=== PATIENT | female | born 1950 | race Caucasian/White ===

== ENCOUNTER 2017-10-22 13:22 | Emergency (ER) | payer OTHER ==
[~2017-10-22] VITALS: Ht 172.7 cm; Wt 85.0 kg
[2017-10-22 13:25] VITALS: TEMP 36.8; Ht 172.7 cm; Wt 85.0 kg
[2017-10-22] MEDS ORDERED: VALS40TA2 PO (14:06)
[2017-10-22] MEDS ORDERED: SODIUM CHLORIDE 0.9% 1000ML 1,000 ML IV STA (14:09)
[2017-10-22] MEDS ORDERED: MoRPHine SULFATE 4 MG/ML 1 ML CARP\\VIAL IV STA (14:09)
[2017-10-22] MEDS ORDERED: ONDANSETRON INJ 2 MG/ML 2 ML VIAL IV STA (14:09)
[2017-10-22] MEDS ORDERED: NAPR1TAB48 PO (14:52)
[2017-10-22] MEDS ORDERED: ATEN-173 PO (14:52)
[2017-10-22] MEDS ORDERED: GLC/500 PO (14:52)
[2017-10-22 14:59] LABS: BASO % 0.2 %; BASO ABS # 0.02 K/uL (0-0.2); EOS % 1.2 %; HEMATOCRIT 34.8 % (37-47); HEMOGLOBIN 12.2 g/dL (12.0-16.0); IG# 0.02 K/uL (0.00-0.02); LYMPH % 18.1 %; LYMPH ABS # 1.53 K/uL (1.2-3.4); MEAN CELL VOLUME 85.1 fL (80-100); MEAN CORPUSCULAR HEMOGLOBIN 29.8 pg (25-34); MEAN CORPUSCULAR HGB CONC 35.1 g/dl (32-36); MEAN PLATELET VOLUME 10.2 fL (7.4-10.4); MONO % 6.4 %; MONO ABS # 0.54 K/uL (0.11-0.59); NEUT % 73.9 %; NEUT ABS # 6.25 K/uL (1.4-6.5); PLATELET COUNT 250 K/uL (130-400); RED CELL DISTRIBUTION WIDTH CV 12.4 % (11.5-14.5); RED CELL DISTRIBUTION WIDTH SD 38.4 fL (36.4-46.3); WHITE BLOOD COUNT 8.46 K/uL (4.8-10.8)
[2017-10-22 15:17] LABS: CALCIUM 9.2 mg/dl (8.5-10.1); CREATININE 0.96 mg/dl (0.60-1.20); POTASSIUM 4.4 mmol/L (3.5-5.1)
[2017-10-22] MEDS ORDERED: METOPROLOL TARTRATE 1 MG/ML VIAL IV STA (15:38)
[2017-10-22] MEDS ORDERED: METOPROLOL TARTRATE 1 MG/ML VIAL ONE (15:48)
--- NOTE | 2017-10-22 16:19 | DIAGNOSTIC IMAGING REPORT ---
CT LUMBAR SPINE WITHOUT CT DOSE: CLINICAL HISTORY: Lumbar spine pain status post trauma TECHNIQUE: Helical images were acquired in transverse plane. Reformatted sagittal and coronal images were reviewed. A dose lowering technique was utilized adhering to the principles of ALARA. CONTRAST: No contrast was administered COMPARISON STUDY: None. FINDINGS: L1-2 level: There is a circumferential disc bulge. There is mild to moderate spinal stenosis. There is no significant foraminal narrowing L2-3 level: There is a broad-based central disc protrusion. There is gas present within the disc. There is moderate spinal stenosis. There is no significant foraminal narrowing L3-4 level: There is a circumferential disc bulge. There is facet joint and ligamentous hypertrophy. There is moderate to severe spinal stenosis. There is mild left-sided foraminal narrowing L4-5 level: There is a circumferential disc bulge. There is severe spinal stenosis. There is mild right-sided foraminal narrowing. L5-S1 level: There is no significant disc bulge or focal herniation. There is right-sided foraminal narrowing. There is a fracture through the left sacral ala. IMPRESSION: 1. No lumbar spine fractures or subluxations identified 2. Fracture through the left sacral ala 3. Multilevel spondylitic changes with multilevel spinal stenosis which is moderate at the L2-3 level, moderate to severe at the L3-4 level, and severe at the L4-5 level Electronically signed by: Braxton Romero M.D. 10/22/2017 4:17 PM Dictated Date/Time: 10/22/2017 4:12 PM
--- NOTE | 2017-10-22 16:30 | DIAGNOSTIC IMAGING REPORT ---
CT PELVIS NO IV/ORAL CONT (CT) CT DOSE: 1438.69 mGy.cm CLINICAL HISTORY: Low back pain status post trauma TECHNIQUE: Helical images were acquired in the transverse plane. Sagittal and coronal reformatted images were reviewed. A dose lowering technique was utilized adhering to the principles of ALARA. COMPARISON STUDY: None. FINDINGS: There is no evidence of SI joint diastases. There are bilateral sacral alae fractures. No ischio pubic ring fractures are visualized. There are advanced arthritic changes present within each hip. No acute fractures are visualized. There are multilevel degenerative changes present within the spine. There is L4-5, and L5-S1 spinal stenosis. IMPRESSION: 1. Nondisplaced bilateral sacral fractures 2. Advanced arthritic changes within each hip. No hip fractures identified 3. Advanced degenerative changes within the lower lumbar spine with significant L4-5 and L5-S1 spinal stenosis Electronically signed by: Braxton Romero M.D. 10/22/2017 4:28 PM Dictated Date/Time: 10/22/2017 4:21 PM
[2017-10-22] MEDS ORDERED: DOCU-94 PO (16:59)
[2017-10-22] MEDS ORDERED: OXYC-737 PO (16:59)
--- NOTE | 2017-10-22 17:15 | EMERGENCY ROOM VISIT NOTE ---
History Report prepared by Dilip: Rosi Bedolla Under the Supervision of: Dr. Michelle Tony M.D. First contact with patient: 13:47 Chief Complaint: FALL Stated Complaint: FELL HIP PAIN R SIDE NUMBNESS History of Present Illness The patient is a 67 year old female who presents to the Emergency Room with complaints of an episode of a fall that occurred two days ago. The patient reports slipping in dog urine 2 days ago in her house. She claims that since then there is sharp pain around the tailbone and back region, and she reports numbness down to her knees. She reports she has difficulty standing, bearing weight, and lifting objects. The patient notes an earlier episode of falling that occurred toward the end of last week, but she notes the pain from that fall went away. She denies any chest pain and shortness of breath. The patient reports she takes Advil with no relief. The patient states she has atrial fibrillation and was on Coumadin, but was taken off of it after her knee replacement. Source of History: patient Onset: 2 days ago Position: pelvis Quality: sharp, other (fall) Timing: other (episode) Modifying Factors (Worsening): other (standing, bearing weight, lifting objects) Associated Symptoms: + numbness, No chest pain, No SOB Review of Systems See HPI for pertinent positives & negatives. A total of 10 systems reviewed and were otherwise negative. Past Medical & Surgical Medical Problems: (1) A-fib (2) Diabetes (3) Hypertension Surgical Problems: (1) Status post right knee replacement Family History No pertinent family history Social History Smoking Status: Never Smoker Marital Status: single Housing Status: lives with family Current/Historical Medications Scheduled Atenolol (Tenormin), Unknown Dose PO QAM Docusate Sodium (Colace), 1 CAP PO BID Metformin Hcl (Glucophage), 500 MG PO DAILY Naproxen (Naprosyn), Unknown Dose PO BID Valsartan (Diovan), Unknown Dose PO DAILY Scheduled PRN Oxycodone Immediate Rel Tab (Roxicodone Ir), 5 MG PO Q6 PRN for Severe Pain Allergies Coded Allergies: No Known Allergies (Unverified , 10/22/17) Physical Exam Vital Signs Date Time Temp Pulse Resp B/P (MAP) Pulse Ox O2 Delivery O2 Flow Rate FiO2 10/22/17 17:40 89 20 119/59 99 10/22/17 15:52 113 139/91 10/22/17 15:50 113 22 139/91 97 Room Air 10/22/17 14:17 98 10/22/17 13:25 36.8 131 17 162/83 98 Room Air Physical Exam Vital signs reviewed. General: Well-appearing 67-year-old female, in no significant distress. HEENT: No scleral icterus, PERRLA, neck supple. Atraumatic. Cardiovascular: Irregular rhythm and tachycardic rate, no extra sounds. Pulmonary: Clear to auscultation bilaterally, normal work of breathing. Abdomen: Soft, nontender, nondistended, positive bowel sounds. Musculoskeletal: Atraumatic, no peripheral edema. Tenderness to palpation over lumbar and sacral spine. No pain with pelvic rocking. Limited range of motion of the right knee and hip (chronic). Neurologic: Patient awake alert and oriented x 3, limited strength in the right lower extremity secondary to degenerative and surgical changes, otherwise equal strength to remaining 3 extremities. Cranial nerves 2 through 12 grossly intact. Skin: Warm, dry, no rash Medical Decision & Procedures ER Provider Diagnostic Interpretation: Radiology results as stated below per my review and radiologist interpretation: CT PELVIS NO IV/ORAL CONT (CT) CT DOSE: 1438.69 mGy.cm CLINICAL HISTORY: Low back pain status post trauma TECHNIQUE: Helical images were acquired in the transverse plane. Sagittal and coronal reformatted images were reviewed. A dose lowering technique was utilized adhering to the principles of ALARA. COMPARISON STUDY: None. FINDINGS: There is no evidence of SI joint diastases. There are bilateral sacral alae fractures. No ischio pubic ring fractures are visualized. There are advanced arthritic changes present within each hip. No acute fractures are visualized. There are multilevel degenerative changes present within the spine. There is L4-5, and L5-S1 spinal stenosis. IMPRESSION: 1. Nondisplaced bilateral sacral fractures 2. Advanced arthritic changes within each hip. No hip fractures identified 3. Advanced degenerative changes within the lower lumbar spine with significant L4-5 and L5-S1 spinal stenosis Electronically signed by: Braxton Romero M.D. 10/22/2017 4:28 PM Dictated Date/Time: 10/22/2017 4:[address] LUMBAR SPINE WITHOUT CT DOSE: CLINICAL HISTORY: Lumbar spine pain status post trauma TECHNIQUE: Helical images were acquired in transverse plane. Reformatted sagittal and coronal images were reviewed. A dose lowering technique was utilized adhering to the principles of ALARA. CONTRAST: No contrast was administered COMPARISON STUDY: None. FINDINGS: L1-2 level: There is a circumferential disc bulge. There is mild to moderate spinal stenosis. There is no significant foraminal narrowing L2-3 level: There is a broad-based central disc protrusion. There is gas present within the disc. There is moderate spinal stenosis. There is no significant foraminal narrowing L3-4 level: There is a circumferential disc bulge. There is facet joint and ligamentous hypertrophy. There is moderate to severe spinal stenosis. There is mild left-sided foraminal narrowing L4-5 level: There is a circumferential disc bulge. There is severe spinal stenosis. There is mild right-sided foraminal narrowing. L5-S1 level: There is no significant disc bulge or focal herniation. There is right-sided foraminal narrowing. There is a fracture through the left sacral ala. IMPRESSION: 1. No lumbar spine fractures or subluxations identified 2. Fracture through the left sacral ala 3. Multilevel spondylitic changes with multilevel spinal stenosis which is moderate at the L2-3 level, moderate to severe at the L3-4 level, and severe at the L4-5 level Electronically signed by: Braxton Romero M.D. 10/22/2017 4:17 PM Dictated Date/Time: 10/22/2017 4:12 PM Laboratory Results 10/22/17 14:43 Red Blood Count 4.09, Mean Corpuscular Volume 85.1, Mean Corpuscular Hemoglobin 29.8, Mean Corpuscular Hemoglobin Concent 35.1, Mean Platelet Volume 10.2, Neutrophils (%) (Auto) 73.9, Lymphocytes (%) (Auto) 18.1, Monocytes (%) (Auto) 6.4, Eosinophils (%) (Auto) 1.2, Basophils (%) (Auto) 0.2, Neutrophils # (Auto) 6.25, Lymphocytes # (Auto) 1.53, Monocytes # (Auto) 0.54, Eosinophils # (Auto) 0.10, Basophils # (Auto) 0.02 10/22/17 14:43 Test 10/22/17 14:43 10/22/17 16:50 White Blood Count 8.46 K/uL (4.8-10.8) Red Blood Count 4.09 M/uL (4.2-5.4) Hemoglobin 12.2 g/dL (12.0-16.0) Hematocrit 34.8 % (37-47) Mean Corpuscular Volume 85.1 fL (80-100) Mean Corpuscular Hemoglobin 29.8 pg (25-34) Mean Corpuscular Hemoglobin Concent 35.1 g/dl (32-36) Platelet Count 250 K/uL (130-400) Mean Platelet Volume 10.2 fL (7.4-10.4) Neutrophils (%) (Auto) 73.9 % Lymphocytes (%) (Auto) 18.1 % Monocytes (%) (Auto) 6.4 % Eosinophils (%) (Auto) 1.2 % Basophils (%) (Auto) 0.2 % Neutrophils # (Auto) 6.25 K/uL (1.4-6.5) Lymphocytes # (Auto) 1.53 K/uL (1.2-3.4) Monocytes # (Auto) 0.54 K/uL (0.11-0.59) Eosinophils # (Auto) 0.10 K/uL (0-0.5) Basophils # (Auto) 0.02 K/uL (0-0.2) RDW Standard Deviation 38.4 fL (36.4-46.3) RDW Coefficient of Variation 12.4 % (11.5-14.5) Immature Granulocyte % (Auto) 0.2 % Immature Granulocyte # (Auto) 0.02 K/uL (0.00-0.02) Anion Gap 8.0 mmol/L (3-11) Est Creatinine Clear Calc Drug Dose 63.2 ml/min Estimated GFR () 69.9 Estimated GFR (Non- 60.3 BUN/Creatinine Ratio 23.2 (10-20) Calcium Level 9.2 mg/dl (8.5-10.1) Total Bilirubin 0.7 mg/dl (0.2-1) Direct Bilirubin 0.3 mg/dl (0-0.2) Aspartate Amino Transf (AST/SGOT) 17 U/L (15-37) Alanine Aminotransferase (ALT/SGPT) 18 U/L (12-78) Alkaline Phosphatase 198 U/L (45-117) Total Protein 7.0 gm/dl (6.4-8.2) Albumin 4.0 gm/dl (3.4-5.0) Urine Color YELLOW Urine Appearance CLEAR (CLEAR) Urine pH 5.5 (4.5-7.5) Urine Specific [place] 1.012 (1.000-1.030) Urine Protein NEG (NEG) Urine Glucose (UA) NEG (NEG) Urine Ketones TRACE (NEG) Urine Occult Blood NEG (NEG) Urine Nitrite NEG (NEG) Urine Bilirubin NEG (NEG) Urine Urobilinogen NEG (NEG) Urine Leukocyte Esterase SMALL (NEG) Urine WBC (Auto) 1-5 /hpf (0-5) Urine RBC (Auto) 0-4 /hpf (0-4) Urine Hyaline Casts (Auto) 0 /lpf (0-5) Urine Epithelial Cells (Auto) 10-20 /lpf (0-5) Urine Bacteria (Auto) 4+ (NEG) Laboratory results per my review. Medications Administered Medications (Trade) Dose Ordered Sig/Ruthie Route Start Time Stop Time Status Last Admin Dose Admin Morphine Sulfate (MoRPHine SULFATE INJ) 4 mg NOW STAT IV 10/22/17 14:09 10/22/17 14:11 DC 10/22/17 15:37 4 MG Ondansetron HCl (Zofran Inj) 4 mg NOW STAT IV 10/22/17 14:09 10/22/17 14:11 DC 10/22/17 15:37 4 MG Sodium Chloride 1,000 ml @ 150 mls/hr Q6H40M STAT IV 10/22/17 14:09 10/22/17 18:09 DC 10/22/17 15:37 150 MLS/HR Metoprolol Tartrate (Lopressor Iv) 5 mg STK-MED ONCE .ROUTE 10/22/17 15:48 10/22/17 15:49 DC 10/22/17 15:52 5 MG ECG Per My Interpretation Indication: back/shoulder pain Rate (beats per minute): 105 Rhythm: atrial fibrillation (with RVR) Findings: PVC, no acute ischemic change ED Course 1408: Past medical records reviewed. The patient was evaluated in room A9B. A complete history and physical examination was performed. 1409: Ordered Sodium Chloride 1000 ml @ 150 mls/hr IV, Zofran Inj 4 mg IV, Morphine Sulfate 4 mg IV. 1538: Lopressor Iv 5 mg IV. 1637: I reevaluated the patient and updated her on her results. We will consult orthopedics. 1648: I discussed the patient's case with Dr. Benny Bullock. He agrees with the treatment plan. 165: Upon reevaluation, the patient appeared to have improvement of her symptoms. I discussed findings with her. She verbalized agreement of the treatment plan. The patient was discharged home. Medical Decision Differential diagnosis: Intracranial injury, cervical spine injury, intrathoracic injury, intra- abdominal injury, musculoskeletal injury. This patient was evaluated and appeared to be in no significant distress. Physical examination reveals tenderness over the lower back. The patient was felt not to be able to tolerate the multiple images required for a lumbar film. CT scan of the lumbar spine and pelvis was performed. A left sacral ala fracture was identified. This injury happened several days ago. The patient has been weightbearing. Case was discussed with Dr. Zapata of orthopedic surgery who agreed with minimal weightbearing status to the left leg. Patient was able to mobilize to the bathroom without much difficulty using a walker. She was given IV morphine for pain relief. Patient did receive IV Lopressor for a mildly rapid atrial fib. She has a known history of atrial fibrillation and will continue her on atenolol but increasing the dose to 37.5 mg daily. Patient is not currently anticoagulated which is likely a good thing given her recent falls. Patient was strongly encouraged to follow-up with her PCP this week. She was given a prescription for Ultram to be used in addition to Tylenol for pain. She may require physical therapy but will seek orthopedic evaluation this week. She will return to the ED for worsening of symptoms or any medical concerns. Medication Reconcilliation Current Medication List: was personally reviewed by me Blood Pressure Screening Patient's blood pressure: Elevated blood pressure Blood pressure disposition: Elevated BP felt to be situational Consults Time Called: 1641 Consulting Physician: Dr. Benny Bullock Returned Call: 1648 I discussed the patient's case with Dr. Benny Bullock. He agrees with the treatment plan. Impression Primary Impression: Closed sacral fracture Additional Impression: A-fib Scribe Attestation The scribe's documentation has been prepared under my direction and personally reviewed by me in its entirety. I confirm that the note above accurately reflects all work, treatment, procedures, and medical decision making performed by me. Departure Information Dispostion Home / Self-Care Prescriptions Docusate Sodium (COLACE) 100 Mg Cap 1 CAP PO BID for 30 Days, #60 CAP 2 Refills Prov: Michelle Tony M.D. 10/22/17 Oxycodone Immediate Rel Tab (ROXICODONE IR) 5 Mg Tab 5 MG PO Q6 Y for Severe Pain, #20 TAB Prov: Michelle Tony M.D. 10/22/17 Forms HOME CARE DOCUMENTATION FORM, IMPORTANT VISIT INFORMATION Patient Instructions My [facility] Additional Instructions Diagnosis: Left sacral fracture Tylenol 650 mg every 6 hours as needed for pain. OxyIR 5 mg every 6 hours as needed for more severe pain. Increase the atenolol from 25 mg to 37.5 mg (1.5 tablets) daily. Minimize weight to LEFT leg, use walker at all times. Follow-up with Dr. Zapata of orthopedic surgery this week in the clinic. Contact your primary care physician for reevaluation of your atrial fibrillation. Problem Qualifiers
[2017-10-22 17:40] VITALS: BP 119/59; PULSE 89; O2SAT 99
--- NOTE | 2017-10-24 16:57 | Pharmacy Progress Note ---
ED Pharmacist Culture FollowUp Date of Service: Oct 24, 2017. Pt's urine cx from 10/22 is growing > 100,000CFU/mL e coli (clean catch specimen) . Pt's UA was somewhat unremarkable: clear, (-) nitrite, small LE, 1-5 WBC, +4 bacteria, 10-20 epis. This could reflect contamination vs colonization. Reviewed case w/ Dr Tony, plan was to contact pt to determine if she had urinary symptoms. If she did have urinary symptoms a Rx for Keflex would be called in. I spoke w/ the patient over the phone and she stated did has had problems with pain/burning when urinating and she felt she may have a UTI. I explained the cx results and asked where she would like Rx called. Rx for Keflex 500mg PO BID x 7 days was called to [facility] ([phone]) per patient's request.
== END 2017-10-22 17:45 | disposition home or self-care (01) ==
LOC: C.EDB 13:24 → C.EDA 17:45
DX: S32.10XA Unspecified fracture of sacrum, initial encounter for closed fracture (principal); W01.0XXA Fall on same level from slipping, tripping and stumbling without subsequent striking against object, initial encounter; I48.91 Unspecified atrial fibrillation; Z79.01 Long term (current) use of anticoagulants; Z96.651 Presence of right artificial knee joint; E11.9 Type 2 diabetes mellitus without complications; I10 Essential (primary) hypertension; Z79.899 Other long term (current) drug therapy; Z79.84 Long term (current) use of oral hypoglycemic drugs

== ENCOUNTER 2019-09-15 21:44 | Inpatient (IN) ==
[2019-09-15] MEDS ORDERED: PANTOPRAZOLE BOLUS/DRIP 1 EA IV STA (21:56)
[2019-09-15] MEDS ORDERED: PANTOprazole 80 MG in DEXTROSE 5% 100 ML IV ONE (21:56)
[2019-09-15 22:13] LABS: Hematocrit (blood only) 21.5 % (37-47); Hemoglobin 7.2 g/dL (12.0-16.0); Mean Corpuscular Hemoglobin 29.5 pg (25-34); Mean Corpuscular Hgb Conc 33.5 g/dL (32-36); Mean Corpuscular Volume 88.1 fL (80-100); Mean Platelet Volume 11.9 fL (7.4-10.4); Platelet Count 249 K/uL (130-400); RDW Coefficient of Variation 13.8 % (11.5-14.5); RDW Standard Deviation 44.7 fL (36.4-46.3); Red Blood Count 2.44 M/uL (4.2-5.4); White Blood Count 18.22 K/uL (4.8-10.8)
[2019-09-15] MEDS ORDERED: SODIUM CHLORIDE 0.9% 250 ML IV PRN (22:14)
[2019-09-15 22:18] LABS: iSTAT Creatinine 1.1 mg/dl (0.6-1.3); iSTAT Hemoglobin 6.8 g/dl (12.0-16.0); iSTAT Ionized Calcium 1.23 mmol/l (1.12-1.32)
[2019-09-15] MEDS ORDERED: SODIUM CHLORIDE 0.9% 1000ML 1,000 ML IV ONE (22:21)
[2019-09-15 22:31] LABS: Alanine Aminotransferase 13 U/L (12-78); Albumin Level 3.4 gm/dl (3.4-5.0); Aspartate Aminotransferase 9 U/L (15-37); BUN Creatinine Ratio 67.4 (10-20); Blood Urea Nitrogen 87 mg/dl (7-18); Calcium 8.6 mg/dl (8.5-10.1); Carbon Dioxide 18 mmol/L (21-32); Chloride 105 mmol/L (98-107); Est GFR (African American) 48.2; Est GFR (Non-African American) 41.6; Glucose 244 mg/dl (70-99); Potassium 3.9 mmol/L (3.5-5.1); Sodium 134 mmol/L (136-145)
[2019-09-15 22:34] LABS: INR 1.2 (0.9-1.1); Partial Thromboplastin Time 27.7 Seconds (21.0-31.0); Prothrombin Time 12.8 Seconds (9.0-12.0)
[2019-09-15 22:35] LABS: Albumin Globulin Ratio 1.3 (0.9-2); Alkaline Phosphatase 59 U/L (45-117); Bilirubin,Total 0.3 mg/dl (0.2-1); Globulin 2.6 gm/dl (2.5-4.0); Troponin I < 0.015 ng/ml (0-0.045)
[2019-09-15] MEDS: PANTOprazole 40 MG in DEXTROSE 5% 100 ML IV SCH (22:41)
[2019-09-15 22:42] LABS: Basophils # (auto) 0.03 K/uL (0-0.2); Basophils % (auto) 0.2 %; Eosinophils # (auto) 0.03 K/uL (0-0.5); Eosinophils % (auto) 0.2 %; Immature Granulocytes # (auto) 0.05 K/uL (0.00-0.02); Immature Granulocytes % (auto) 0.3 %; Lymphocytes # (auto) 2.84 K/uL (1.2-3.4); Lymphocytes % (auto) 15.6 %; Monocytes # (auto) 0.85 K/uL (0.11-0.59); Monocytes % (auto) 4.7 %; Neutrophils # (auto) 14.42 K/uL (1.4-6.5); Ovalocytes 1+
[2019-09-15] MEDS ORDERED: POTASSIUM CHLORIDE 20 MEQ TABCR PO STA (23:39)
[2019-09-15] MEDS ORDERED: MAGNESIUM SULFATE / D5W 1 GM/100 ML BAG IV ONE (23:39)
[2019-09-15] MEDS ORDERED: DIGOXIN 250 MCG in SYRINGE 9 ML IV STA (23:41)
[2019-09-16 00:03] LABS: Magnesium 1.7 mg/dl (1.8-2.4)
--- NOTE | 2019-09-16 00:12 | History & Physical Report ---
Date of Service September 16, 2019 Assessment & Plan (1) Hypotension: Multifactorial : UGIB, hx A. fib on Eliquis. NSAID intake for arthritis symptoms (differentials include gastritis, PUD) Severe sepsis (SIRS plus lactic acidosis plus ARF) secondary to complicated UTI Anemia secondary to UGI B, unknown baseline A. fib, rate slightly uncontrolled secondary to illness hypertension, BP on the lower side hyperlipidemia, on statin Rx DM 2 on oral meds, elevated BSG, unknown baseline PCU Hold Eliquis. Patient counselled about potential for NSAIDs to cause GI bleed and kidney problems. IV PPI GI consult RE U GIB Trend H&H, transfuse PRBC if hemoglobin less than 8 and or for symptomatic anemia Cultures, IV Cefepime for now IVF, follow lactic acid Hold home ARB, diuretic until creatinine at baseline Basal insulin adjusted for n.p.o. status in anticipation of procedure, ISS BG goal [id number], check hemoglobin A1c DVT prophylaxis. SCDs while Eliquis on hold. DNR Text document was generated using [employer] voice recognition software. It may contain grammatical or spelling errors. Kindly contact undersigned for clarification of any documentation item in question. History of Present Illness Chief Complaint: Dizziness, not feeling well, dark urine, melena Primary Care Provider: Bridger Chaves History obtained from patient and records. Medical history significant for hypertension, hyperlipidemia, A. fib on Eliquis, DM 2 on oral meds, osteoarthritis, basal cell carcinoma status post surgery. Yesterday morning patient woke up not feeling well. Dizziness described as lightheadedness. No headache. Achy abdominal discomfort with right kidney pain. Stools noted to be melanotic. No hematemesis, no unusual weight loss. Dysuria symptoms along with dark urine. Patient denies chest pain, S OB, cough. Denies recent COVID-19 contacts. Daily naproxen intake in a.m. with food for arthritis. Patient brought to the ER for evaluation. IV Protonix bolus/infusion initiated at the ER. Hemoglobin noted to be 7.2. 1 unit packed RBC transfusion initiated at the ER. Medical History as above Surgical History : Skin cancer surgery, section, cholecystectomy, hysterectomy, knee surgery Family History : Colon cancer, heart disease, diabetes Personal/Social history : Non-smoker, occasional EtOH intake, retired from work as a [employer] company Allergies Allergy/AdvReac Type Severity Reaction Status Date / Time No Known Allergies Allergy Unverified 09/15/19 22:55 Home Medications Home Medications Medication Instructions Recorded Confirmed Type apixaban [Eliquis] 5 mg PO BID 09/15/19 09/15/19 History atenolol [Tenormin] 50 mg PO DAILY 09/15/19 09/15/19 History metformin [Glucophage] 500 mg PO DAILY 09/15/19 09/15/19 History naproxen [Naprosyn] 500 mg PO DAILY 09/15/19 09/15/19 History simvastatin [Zocor] 20 mg PO HS 09/15/19 09/15/19 History valsartan-hydrochlorothiazide 1 tab PO DAILY 09/15/19 09/15/19 History [Diovan HCT] Past Med/Surg History Social History Preferred Language: [place]ag[place] Communication Ability: Effective 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 Beliefs That Will Affect Care: None Current Living Situation: Family Current Living Situation Comment: lives with daughter Other Information That Helps Us Care for You: No Feels Safe at Home: Yes Safety Concerns: Feels Safe At This Time Smoking Status: Never smoker Hx Alcohol Use: Yes Alcohol type: wine Hx Substance Use: No Review of Systems Review of Systems: As per HPI, all 10 systems reviewed, all other ROS negative Physical Exam Physical Exam: GENERAL: uncomfortable, anxious, no respiratory distress SKIN: Pallor , warm HEENT: Bespectacled, pale palpebral conjunctivae, no ptosis, dry buccal mucosa NECK : Supple, no tenderness CHEST : CTA, no tenderness HEART : Irregular, tachycardic, no obvious murmurs ABDOMEN: Some distention, minimal epigastric tenderness EXTREMITIES : Chronic LE swelling (R>L), no LE tenderness, no other conspicuous deformities noted NEUROLOGIC : Coherent, no facial asymmetry, no other gross focality Results & Data Results & Data ([facility]) Vital Signs (Past 12 Hours) Vital Signs Temp Pulse Pulse Resp BP BP Pulse Ox 09/15/19 23:03 119 H 18 90/49 L 98 09/15/19 22:31 108 H 20 110/62 97 09/15/19 22:15 121 H 20 90/45 L 99 09/15/19 22:04 99 09/15/19 21:54 125 H 20 99/51 L 99 09/15/19 21:45 36.6 C 107 H 20 71/46 L 99 Laboratory Results Laboratory Results WBC 18.22 K/uL (4.8-10.8) H 09/15/19 21:58 RBC 2.44 M/uL (4.2-5.4) L 09/15/19 21:58 Hgb 7.2 g/dL (12.0-16.0) L 09/15/19 21:58 POC Hgb 6.8 g/dl (12.0-16.0) L* 09/15/19 22:05 Hct 21.5 % (37-47) L 09/15/19 21:58 POC Hct 20 % (37-47) L* 09/15/19 22:05 MCV 88.1 fL (80-100) 09/15/19 21:58 MCH 29.5 pg (25-34) 09/15/19 21:58 MCHC 33.5 g/dL (32-36) 09/15/19 21:58 RDW Std Deviation 44.7 fL (36.4-46.3) 09/15/19 21:58 RDW Coeff of Michael 13.8 % (11.5-14.5) 09/15/19 21:58 Plt Count 249 K/uL (130-400) 09/15/19 21:58 MPV 11.9 fL (7.4-10.4) H 09/15/19 21:58 Immature Gran % (Auto) 0.3 % 09/15/19 21:58 Neut % (Auto) 79.0 % 09/15/19 21:58 Lymph % (Auto) 15.6 % 09/15/19 21:58 Boyd % (Auto) 4.7 % 09/15/19 21:58 Eos % (Auto) 0.2 % 09/15/19 21:58 Baso % (Auto) 0.2 % 09/15/19 21:58 Immature Gran # (Auto) 0.05 K/uL (0.00-0.02) H 09/15/19 21:58 Neut # (Auto) 14.42 K/uL (1.4-6.5) H 09/15/19 21:58 Lymph # (Auto) 2.84 K/uL (1.2-3.4) 09/15/19 21:58 Boyd # (Auto) 0.85 K/uL (0.11-0.59) H 09/15/19 21:58 Eos # (Auto) 0.03 K/uL (0-0.5) 09/15/19 21:58 Baso # (Auto) 0.03 K/uL (0-0.2) 09/15/19 21:58 Ovalocytes 1+ 09/15/19 21:58 PT 12.8 Seconds (9.0-12.0) H 09/15/19 21:58 INR 1.2 (0.9-1.1) H 09/15/19 21:58 APTT 27.7 Seconds (21.0-31.0) 09/15/19 21:58 PTT Ratio 1.0 09/15/19 21:58 POC Sodium 134 mmol/L (135-144) L 09/15/19 22:05 Sodium 134 mmol/L (136-145) L 09/15/19 21:58 POC Potassium 4.0 mmol/L (3.3-5.0) 09/15/19 22:05 Potassium 3.9 mmol/L (3.5-5.1) 09/15/19 21:58 POC Chloride 102 mmol/L (101-112) 09/15/19 22:05 Chloride 105 mmol/L (98-107) 09/15/19 21:58 Carbon Dioxide 18 mmol/L (21-32) L 09/15/19 21:58 POC Total CO2 16 mmol/L (24-31) L 09/15/19 22:05 Anion Gap 11.0 (3-11) 09/15/19 21:58 POC Anion Gap 21.0 mmol/L (16-25) 09/15/19 22:05 POC BUN 95 mg/dl (7-18) H 09/15/19 22:05 BUN 87 mg/dl (7-18) H 09/15/19 21:58 Creatinine 1.29 mg/dl (0.6-1.2) H 09/15/19 21:58 POC Creatinine 1.1 mg/dl (0.6-1.3) 09/15/19 22:05 Est Cr Clr Drug Dosing Not Reportable 09/15/19 21:58 Est GFR ( Amer) 48.2 09/15/19 21:58 Est GFR (Non-Af Amer) 41.6 09/15/19 21:58 BUN/Creatinine Ratio 67.4 (10-20) H 09/15/19 21:58 Glucose 244 mg/dl (70-99) H 09/15/19 21:58 POC Glucose (other) 243 mg/dl (70-99) H 09/15/19 22:05 Calcium 8.6 mg/dl (8.5-10.1) 09/15/19 21:58 POC Ioniz Calcium Jennifer 1.23 mmol/l (1.12-1.32) 09/15/19 22:05 Magnesium 1.7 mg/dl (1.8-2.4) L 09/15/19 21:58 Total Bilirubin 0.3 mg/dl (0.2-1) 09/15/19 21:58 AST 9 U/L (15-37) L 09/15/19 21:58 ALT 13 U/L (12-78) 09/15/19 21:58 Alkaline Phosphatase 59 U/L (45-117) 09/15/19 21:58 Troponin I < 0.015 ng/ml (0-0.045) 09/15/19 21:58 Total Protein 6.0 gm/dl (6.4-8.2) L 09/15/19 21:58 Albumin 3.4 gm/dl (3.4-5.0) 09/15/19 21:58 Globulin 2.6 gm/dl (2.5-4.0) 09/15/19 21:58 Albumin/Globulin Ratio 1.3 (0.9-2) 09/15/19 21:58 TSH 2.210 uIu/ml (0.300-4.500) 09/15/19 21:58 POC Stool Occult Blood Positive (Negative) A 09/15/19 22:03 Blood Type A Negative 09/15/19 21:58 Blood Type Recheck A Negative 09/15/19 22:57 Antibody Screen NEGATIVE 09/15/19 21:58 Crossmatch See Detail 09/15/19 21:[address] abdomen pelvis initial read: Cholecystectomy. Liver, spleen, pancreas, adrenal glands are unremarkable. No hydronephrosis or radiopaque stones. Normal appendix. No bowel obstruction. Normal urinary bladder. Status post hysterectomy. Severe osteoarthritis both hips. Chest x-ray as per my interpretation cardiomegaly, elevated right hemidiaphragm EKG as per my interpretation : Rate 115, A. fib, normal axis, T wave abnormalities lateral leads
[2019-09-16] MEDS ORDERED: NORMOSOL-R 1,000 ML IV ONE (01:10)
[2019-09-16] MEDS ORDERED: PANTOprazole 40 MG in DEXTROSE 5% 100 ML IV SCH (01:57)
[2019-09-16] MEDS ORDERED: HYDROmorphone INJ 0.5 MG/0.5 ML SYR IV PRN (01:57)
[2019-09-16] MEDS ORDERED: SODIUM CHLORIDE 0.9% 250 ML IV PRN ×2 (01:57→06:38)
[2019-09-16] MEDS ORDERED: PROMETHAZINE HCL 12.5 MG in SODIUM CHLORIDE 0.9% 50 ML IV PRN (01:57)
[2019-09-16] MEDS ORDERED: LORazepam 0.25 MG/0.5 ML VIAL IV PRN (01:57)
[2019-09-16 02:09] LABS: Appearance Urine Clear (Clear); Bacteria Urine Automated Negative (Negative); Bilirubin Urine Negative (Negative); Blood Urine Trace (Negative); Color Urine Yellow; Epithelial Cell Urine Auto >30 /lpf (0-5); Glucose Urine UA Negative (Negative); Ketones Urine Negative (Negative); Leukocyte Esterase Urine 2+ (Negative); Nitrite Urine Negative (Negative); Protein Urine Negative (Negative); Specific Gravity Urine 1.019 (1.000-1.030); Urobilinogen Urine Negative (Negative)
[2019-09-16] MEDS ORDERED: INSULIN GLARGINE SOLOSTAR 100 UNITS/ML 3 ML PEN SC STA (02:15)
[2019-09-16] MEDS ORDERED: DEXTROSE 50% 50 ML SYRINGE IV PRN (02:17)
[2019-09-16] MEDS ORDERED: GLUCOSE 40% GEL 15 GM TUBE PO PRN (02:17)
[2019-09-16] MEDS ORDERED: GLUCOSE 10 TABS/TUBE PO PRN (02:17)
[2019-09-16] MEDS ORDERED: GLUCAGON FOR INJ 1 MG VIAL SQ PRN (02:17)
[2019-09-16] MEDS ORDERED: CARBOHYDRATES FOR HYPOGLYCEMIA PO PRN (02:17)
[2019-09-16 02:22] LABS: RBC Urine Automated 0-4 /hpf (0-4)
[2019-09-16] MEDS ORDERED: CEFEPIME CONSULT ACTIVE PRN (02:23)
[2019-09-16] MEDS ORDERED: CEFEPIME 2,000 MG/20 ML VIAL IV STA (02:30)
[2019-09-16] MEDS: INSULIN ASPART 100 UNITS/ML 3 ML PEN SC SCH ×4 (03:12→18:42)
[2019-09-16] MEDS ORDERED: MAGNESIUM SULFATE / D5W 1 GM/100 ML BAG IV ONE (04:14)
[2019-09-16] MEDS ORDERED: DIGOXIN 250 MCG in SYRINGE 9 ML IV STA (04:18)
[2019-09-16] MEDS: PANTOprazole 40 MG in DEXTROSE 5% 100 ML IV SCH ×4 (04:19→21:45)
[2019-09-16] MEDS ORDERED: Nursing to Pharmacy Communication SCH (04:45)
[2019-09-16] MEDS: NORMOSOL-R 1,000 ML IV SCH ×2 (05:50→16:41)
[2019-09-16 06:17] LABS: BUN Creatinine Ratio 74.4 (10-20); Creatinine Clr Calc Pharmacy 59.7 ml/min; Est GFR (African American) 64.9; Magnesium 2.1 mg/dl (1.8-2.4); Potassium 3.9 mmol/L (3.5-5.1)
[2019-09-16 06:37] LABS: Hematocrit (blood only) 20.6 % (37-47); Hemoglobin 7.1 g/dL (12.0-16.0); Mean Corpuscular Hemoglobin 30.5 pg (25-34); Mean Corpuscular Hgb Conc 34.5 g/dL (32-36); Mean Corpuscular Volume 88.4 fL (80-100); Mean Platelet Volume 11.8 fL (7.4-10.4); Platelet Count 165 K/uL (130-400); RDW Coefficient of Variation 13.9 % (11.5-14.5); Red Blood Count 2.33 M/uL (4.2-5.4); White Blood Count 12.54 K/uL (4.8-10.8)
[2019-09-16 06:38] LABS: Basophils # (auto) 0.03 K/uL (0-0.2); Basophils % (auto) 0.2 %; Eosinophils # (auto) 0.09 K/uL (0-0.5); Eosinophils % (auto) 0.7 %; Immature Granulocytes # (auto) 0.03 K/uL (0.00-0.02); Immature Granulocytes % (auto) 0.2 %; Lymphocytes # (auto) 3.46 K/uL (1.2-3.4); Lymphocytes % (auto) 27.6 %; Monocytes # (auto) 0.72 K/uL (0.11-0.59); Monocytes % (auto) 5.7 %; Neutrophils # (auto) 8.21 K/uL (1.4-6.5); Neutrophils % (auto) 65.6 %; Ovalocytes 1+
--- NOTE | 2019-09-16 07:07 | XRay Report ---
XR chest 1V portable CLINICAL HISTORY: Pt GI bleed dyspnea COMPARISON STUDY: No previous studies for comparison. FINDINGS: The bones soft tissues and hemidiaphragms are normal. The cardiomediastinal silhouette is n ormal. The lungs are clear. The pulmonary vasculature is normal. IMPRESSION: Negative chest. ACT 112: Negative or not required by law. The above report was generated using voice recognition software. It may contain grammatical, syntax or spelling errors. Electronically signed by: Lexx Patton M.D. 09/16/2019 7:05 AM
--- NOTE | 2019-09-16 07:29 | CT Scan Report ---
CT abd pelvis wo con CT DOSE: 552.52 mGy.cm HISTORY: Pain abd pain TECHNIQUE: Multiaxial CT images of the abdomen and pelvis were performed without contrast. A dose lo wering technique was utilized adhering to the principles of ALARA. COMPARISON STUDY: 10/22/2017 FINDINGS: Lung bases are clear. Liver spleen and pancreas are unremarkable. Prior cholecystectomy. Mild cortical scarring of the kidneys with no evidence for hydronephrosis. Nonobstructive bowel pattern. Bladder is midline. No free fluid within the pelvic cul-de-sac. Prior h ysterectomy. IMPRESSION: No acute process post cholecystectomy and hysterectomy. ACT 112: Negative or not required by law. The above report was generated using voice recognition software. It may contain grammatical, syntax or spelling errors. Electronically signed by: Lexx Patton M.D. 09/16/2019 7:28 AM
[2019-09-16] MEDS ORDERED: ATENOLOL 50 MG TABLET PO SCH (09:00)
[2019-09-16] MEDS: ATENOLOL 25 MG TABLET PO SCH (11:39)
[2019-09-16 12:37] LABS: Hematocrit (blood only) 23.2 % (37-47)
--- NOTE | 2019-09-16 14:28 | Electrocardiogram Report ---
Test Reason : Blood Pressure : / mmHG Vent. Rate : 114 BPM Atrial Rate : 125 BPM P-R Int : 000 ms QRS Dur : 088 ms QT Int : 298 ms P-R-T Axes : 000 019 158 degrees QTc Int : 410 ms Atrial fibrillation with rapid ventricular response Nonspecific ST and T wave abnormality Abnormal ECG When compared with ECG of 22-OCT-2017 15:33, Nonspecific T wave abnormality, worse in Lateral leads Confirmed by Teja Franklin ([id number]) on 09/16/2019 2:28:08 PM Referred By: REFERRED SELF Confirmed By:Teja Franklin
--- NOTE | 2019-09-16 15:53 | Emergency Department Note ---
History of Present Illness General Chief complaint: Urinary Symptoms Stated complaint: DIZZINESS, POSSIBLE UTI Time Seen by Provider: 09/15/19 21:52 Source: patient, RN notes reviewed and old records reviewed Mode of arrival: ambulatory Limitations: no limitations History of Present Illness Provider complaint: Weakness Onset (ago): day(s) 3 Maximum Pain Intensity: 8 Current Pain Intensity: 0 Relieved By: + immobilization Exacerbated By: + movement Associated symptoms: + weakness and + other (black tarry stools); no chest pain, no fever/chills and no headaches Treatments prior to arrival: none This is a 69-year-old female who presents emergency department over concerns of severe weakness. The patient reports she feels like she is going to pass out anytime she stands up. She is so weak she cannot walk around her own house. The patient was recently started on Eliquis for atrial fibrillation. She relates that she has been having black and tarry stools that have been ongoing for the past 3 days. She has no history of GI bleed prior. She denies any pain but feels like she is going to pass out anytime she stands up. Home Medications Home Medications Medication Instructions Recorded Confirmed Type apixaban [Eliquis] 5 mg PO BID 09/15/19 09/15/19 History atenolol [Tenormin] 50 mg PO DAILY 09/15/19 09/15/19 History metformin [Glucophage] 500 mg PO DAILY 09/15/19 09/15/19 History naproxen [Naprosyn] 500 mg PO DAILY 09/15/19 09/15/19 History simvastatin [Zocor] 20 mg PO HS 09/15/19 09/15/19 History valsartan-hydrochlorothiazide 1 tab PO DAILY 09/15/19 09/15/19 History [Diovan HCT] Allergies Allergy/AdvReac Type Severity Reaction Status Date / Time No Known Allergies Allergy Unverified 09/15/19 22:55 Past Med/Surg History Social History Preferred Language: Slovak Communication Ability: Effective Volleyball Commentator Required: No Beliefs That Will Affect Care: None Current Living Situation: Family Current Living Situation Comment: lives with daughter Other Information That Helps Us Care for You: No Feels Safe at Home: Yes Safety Concerns: Feels Safe At This Time Smoking Status: Never smoker Hx Alcohol Use: Yes Alcohol type: wine Hx Substance Use: No Review of Systems A total of 10 systems reviewed and were otherwise negative Physical Exam Vital Signs Vital Signs - 24 hr 09/15/19 21:45 09/15/19 21:54 09/15/19 22:04 Temperature 36.6 C Temperature Source Oral Pulse Rate 107 H Pulse Rate [Finger] 125 H Pulse Rate from SpO2 Sensor Respiratory Rate 20 20 Blood Pressure 71/46 L Blood Pressure [Left Arm] 99/51 L Blood Pressure Mean 54 Blood Pressure Mean [Left Arm] 67 Pulse Oximetry 99 99 99 Oxygen Delivery Method Room Air Room Air Sepsis Recent Fever Within 48 Hours No Sepsis New/Unexplained Change in Mental Status No Sepsis Action Taken by Nursing No Action Required 09/15/19 22:15 09/15/19 22:31 09/15/19 23:03 Temperature Temperature Source Pulse Rate 119 H Pulse Rate [Finger] 121 H 108 H Pulse Rate from SpO2 Sensor Respiratory Rate 20 20 18 Blood Pressure 90/49 L Blood Pressure [Left Arm] 90/45 L 110/62 Blood Pressure Mean 56 Blood Pressure Mean [Left Arm] 60 78 Pulse Oximetry 99 97 98 Oxygen Delivery Method Room Air Room Air Sepsis Recent Fever Within 48 Hours Sepsis New/Unexplained Change in Mental Status Sepsis Action Taken by Nursing 09/15/19 23:15 09/15/19 23:30 09/15/19 23:46 Temperature Temperature Source Pulse Rate 104 H 111 H 112 H Pulse Rate [Finger] Pulse Rate from SpO2 Sensor 115 H 111 H 110 H Respiratory Rate 19 17 17 Blood Pressure 103/58 L 96/66 L 84/51 L Blood Pressure [Left Arm] Blood Pressure Mean 71 82 55 Blood Pressure Mean [Left Arm] Pulse Oximetry 98 99 97 Oxygen Delivery Method Sepsis Recent Fever Within 48 Hours Sepsis New/Unexplained Change in Mental Status Sepsis Action Taken by Nursing 09/16/19 00:00 Temperature Temperature Source Pulse Rate 121 H Pulse Rate [Finger] Pulse Rate from SpO2 Sensor 105 H Respiratory Rate 22 Blood Pressure 110/64 Blood Pressure [Left Arm] Blood Pressure Mean 69 Blood Pressure Mean [Left Arm] Pulse Oximetry 99 Oxygen Delivery Method Sepsis Recent Fever Within 48 Hours Sepsis New/Unexplained Change in Mental Status Sepsis Action Taken by Nursing VITAL SIGNS - Vital signs and nursing notes were reviewed. GENERAL - 69-year-old female appearing stated age who is in moderate distress. Communicates well with provider and answers questions appropriately, pale in appearance, nearly passes out when transferred to bed. SKIN - Without rashes. HEAD - NC/AT. EYES - PERRL with EOMI bilaterally. Sclera anicteric. Palpebral conjunctiva pink and moist with no injection noted. EARS - No deformities of external structures noted on gross examination bilate rally. No pain elicited with palpation of the tragus bilaterally. External auditory canals without discharge or otorrhea. Tympanic membranes pearly vargas without retraction or bulging. No fluid or purulent material visualized behind the TM. Handle of malleus, umbo, cone of light, pars tensa/flaccid all easily visualized. NOSE - Midline and without cyanosis. No epistaxis or purulent drainage noted. Septum midline without deviation or septal hematoma noted. MOUTH/OROPHARYNX - Without perioral cyanosis. Buccal mucosa pink and moist and without leukoplakia. Tongue midline with equal elevation of palate bilaterally. No tonsillar hypertrophy, erythema, or exudates noted. dentition noted. NECK - Neck with FROM. Supple to palpation. lymphadenopathy noted. No nuchal rigidity. LUNGS - Chest wall symmetric without accessory muscle use, intercostals retractions, or central cyanosis. Normal vesicular breath sounds CTA B/L. No wheezes, rales, or rhonchi appreciated. CARDIAC - RRR with S1/S2. No murmur, rubs, or gallops appreciated. ABDOMEN - Abdominal contour without pulsations or visible masses. BS normoactive all four quadrants. No tenderness, palpable masses, hepatosplenomegaly, or ascites noted. RECTAL: Black tarry stool, heme Positive EXTREMITIES - No clubbing or peripheral cyanosis. No pretibial edema present. +3/5 radial, posterior tibial, and dorsalis pedis pulses palpated throughout. +5/5 strength noted in UE/LE bilaterally. NEUROLOGIC - Cranial nerves II through XII grossly intact. Sensory intact to light touch throughout. Patellar reflexes +2/4. PSYCH - A&Ox3 and cooperates fully with examiner. Pt is very pleasant and interacts well with examiner. Course Administered Medications Atenolol (Tenormin) 25 mg PO DAILY JAIDEN Stop: 10/16/19 08:59 Last Admin: 09/16/19 11:39 Dose: Not Given Documented by: [id number] Pantoprazole Sodium 40 mg/ (Dextrose) 100 mls @ 20 mls/hr IV Q5H JAIDEN Stop: 10/15/19 22:10 Last Admin: 09/16/19 10:00 Dose: 8 mg/hr, 20 mls/hr Documented by: [id number] Infusion: 09/16/19 09:19 Dose: 8 mg/hr, 20 mls/hr Documented by: [id number] Admin: 09/16/19 04:19 Dose: 8 mg/hr, 20 mls/hr Documented by: [id number] Infusion: 09/16/19 02:35 Dose: 0 mg/hr, 0 mls/hr Documented by: [id number] Admin: 09/15/19 22:41 Dose: 8 mg/hr, 20 mls/hr Documented by: [id number] Parenteral Electrolytes (Normosol-R) 1,000 mls @ 60 mls/hr IV .[id number] JAIDEN Stop: 10/16/19 02:14 Last Infusion: 09/16/19 06:41 Dose: 60 mls/hr Documented by: [id number] Admin: 09/16/19 05:50 Dose: 80 mls/hr Documented by: [id number] Insulin Aspart (Novolog Flexpen) 0 units SC Q6 JAIDEN Stop: 10/16/19 02:44 Last Admin: 09/16/19 12:27 Dose: Not Given Documented by: [id number] Cosigned by: [id number] Admin: 09/16/19 05:51 Dose: Not Given Documented by: [id number] Cosigned by: [id number] Admin: 09/16/19 03:12 Dose: 1 units Documented by: [id number] Cosigned by: [id number] Discontinued Medications Pantoprazole Sodium (Protonix Bolus/Drip) 0 mls @ 1 mls/hr IV ONE STA Stop: 09/15/19 21:57 Last Admin: 09/15/19 22:41 Dose: Not Given Documented by: [id number] Pantoprazole Sodium 80 mg/ (Dextrose) 120 mls @ 400 mls/hr IV NOW ONE Stop: 09/15/19 22:13 Last Infusion: 09/15/19 22:41 Dose: 0 mls/hr Documented by: [id number] Admin: 09/15/19 22:25 Dose: 400 mls/hr Documented by: [id number] Sodium Chloride (Nss 1000ml) 1,000 mls @ 999 mls/hr IV .Q1H1M ONE Stop: 09/15/19 23:21 Last Infusion: 09/16/19 01:51 Dose: 0 mls/hr Documented by: [id number] Admin: 09/15/19 22:24 Dose: 999 mls/hr Documented by: [id number] Digoxin 250 mcg/ Syringe 10 mls @ 2 mls/min IV NOW STA Stop: 09/15/19 23:45 Last Admin: 09/16/19 00:26 Dose: 2 mls/min Documented by: [id number] Magnesium Sulfate/Dextrose (Magnesium Sulfate / D5w) 1 gm in 100 mls @ 100 mls/hr IV ONE ONE Stop: 09/16/19 00:38 Last Infusion: 09/16/19 09:50 Dose: 0 mls/hr Documented by: [id number] Admin: 09/16/19 06:29 Dose: 100 mls/hr Documented by: [id number] Parenteral Electrolytes (Normosol-R) 1,000 mls @ 999 mls/hr IV .Q1H1M ONE Stop: 09/16/19 02:10 Last Infusion: 09/16/19 03:53 Dose: 0 mls/hr Documented by: [id number] Admin: 09/16/19 02:35 Dose: 999 mls/hr Documented by: [id number] Cefepime HCl (Maxipime) 2,000 mg in 20 mls @ 5 mls/min IV NOW STA; Protocol Stop: 09/16/19 02:33 Last Admin: 09/16/19 03:09 Dose: 5 mls/min Documented by: [id number] Digoxin 250 mcg/ Syringe 10 mls @ 2 mls/min IV NOW STA Stop: 09/16/19 04:22 Last Admin: 09/16/19 06:04 Dose: 2 mls/min Documented by: [id number] Magnesium Sulfate/Dextrose (Magnesium Sulfate / D5w) 1 gm in 100 mls @ 100 mls/hr IV ONE ONE Stop: 09/16/19 05:13 Last Infusion: 09/16/19 06:27 Dose: 0 mls/hr Documented by: [id number] Admin: 09/16/19 05:23 Dose: 100 mls/hr Documented by: [id number] Insulin Glargine (Lantus Solostar Pen) 5 units SC NOW STA Stop: 09/16/19 02:16 Last Admin: 09/16/19 03:10 Dose: 5 units Documented by: [id number] Cosigned by: [id number] Potassium Chloride (Klor-Con M20) 20 meq PO NOW STA Stop: 09/15/19 23:40 Last Admin: 09/16/19 00:48 Dose: 20 meq Documented by: [id number] Critical Care Time I have personally spent greater than 30 minutes of critical care time in the direct management of this patient. This includes bedside care, interpretation of diagnostic studies, and testing, discussion with consultants, patient, and family members, and other required patient management activities. This 30 minutes is in excess of all separately billable procedures. Medical Decision Making Differential Diagnosis Diverticulosis, AVM, coagulopathy, colitis, inflammatory bowel disease, malignancy, Radha-Bustamante tear, esophagitis, peptic ulcer disease, variceal bleed, gastritis, epistaxis, fissure, hemorrhoids, as well as other pathologies. Medical Records Attestation: I reviewed the patient's medical records. Home Medications Current Medication List: was personally reviewed by me Laboratory Data Attestation: I reviewed the patient's lab results. Result diagrams: 09/16/19 12:24 09/16/19 05:49 Lab Results 09/15/19 09/15/19 09/15/19 Range/Units 21:58 21:58 21:58 WBC 18.22 H (4.8-10.8) K/uL RBC 2.44 L (4.2-5.4) M/uL Hgb 7.2 L (12.0-16.0) g/dL POC Hgb (12.0-16.0) g/dl Hct 21.5 L (37-47) % POC Hct (37-47) % MCV 88.1 (80-100) fL MCH 29.5 (25-34) pg MCHC 33.5 (32-36) g/dL RDW Std Deviation 44.7 (36.4-46.3) fL RDW Coeff of Michael 13.8 (11.5-14.5) % Plt Count 249 (130-400) K/uL MPV 11.9 H (7.4-10.4) fL Immature Gran % (Auto) 0.3 % Neut % (Auto) 79.0 % Lymph % (Auto) 15.6 % [place] % (Auto) 4.7 % Eos % (Auto) 0.2 % Baso % (Auto) 0.2 % Immature Gran # (Auto) 0.05 H (0.00-0.02) K/uL Neut # (Auto) 14.42 H (1.4-6.5) K/uL Lymph # (Auto) 2.84 (1.2-3.4) K/uL [place] # (Auto) 0.85 H (0.11-0.59) K/uL Eos # (Auto) 0.03 (0-0.5) K/uL Baso # (Auto) 0.03 (0-0.2) K/uL Ovalocytes 1+ PT 12.8 H (9.0-12.0) Seconds INR 1.2 H (0.9-1.1) APTT 27.7 (21.0-31.0) Seconds PTT Ratio 1.0 POC Sodium (135-144) mmol/L Sodium (136-145) mmol/L POC Potassium (3.3-5.0) mmol/L Potassium (3.5-5.1) mmol/L POC Chloride (101-112) mmol/L Chloride (98-107) mmol/L Carbon Dioxide (21-32) mmol/L POC Total CO2 (24-31) mmol/L Anion Gap (3-11) POC Anion Gap (16-25) mmol/L POC BUN (7-18) mg/dl BUN (7-18) mg/dl Creatinine (0.6-1.2) mg/dl POC Creatinine (0.6-1.3) mg/dl Est Cr Clr Drug Dosing Est GFR ( Amer) Est GFR (Non-Af Amer) BUN/Creatinine Ratio (10-20) Glucose (70-99) mg/dl POC Glucose (other) (70-99) mg/dl Calcium (8.5-10.1) mg/dl POC Ioniz Calcium Jennifer (1.12-1.32) mmol/l Magnesium (1.8-2.4) mg/dl Total Bilirubin (0.2-1) mg/dl AST (15-37) U/L ALT (12-78) U/L Alkaline Phosphatase (45-117) U/L Troponin I (0-0.045) ng/ml Total Protein (6.4-8.2) gm/dl Albumin (3.4-5.0) gm/dl Globulin (2.5-4.0) gm/dl Albumin/Globulin Ratio (0.9-2) Procalcitonin (0-0.5) ng/ml TSH (0.300-4.500) uIu/ml POC Stool Occult Blood (Negative) Blood Type A Negative Blood Type Recheck Antibody Screen NEGATIVE Crossmatch See Detail 09/15/19 09/15/19 09/15/19 Range/Units 21:58 22:02 22:03 WBC (4.8-10.8) K/uL RBC (4.2-5.4) M/uL Hgb (12.0-16.0) g/dL POC Hgb (12.0-16.0) g/dl Hct (37-47) % POC Hct (37-47) % MCV (80-100) fL MCH (25-34) pg MCHC (32-36) g/dL RDW Std Deviation (36.4-46.3) fL RDW Coeff of Michael (11.5-14.5) % Plt Count (130-400) K/uL MPV (7.4-10.4) fL Immature Gran % (Auto) % Neut % (Auto) % Lymph % (Auto) % [place] % (Auto) % Eos % (Auto) % Baso % (Auto) % Immature Gran # (Auto) (0.00-0.02) K/uL Neut # (Auto) (1.4-6.5) K/uL Lymph # (Auto) (1.2-3.4) K/uL [place] # (Auto) (0.11-0.59) K/uL Eos # (Auto) (0-0.5) K/uL Baso # (Auto) (0-0.2) K/uL Ovalocytes PT (9.0-12.0) Seconds INR (0.9-1.1) APTT (21.0-31.0) Seconds PTT Ratio POC Sodium (135-144) mmol/L Sodium 134 L (136-145) mmol/L POC Potassium (3.3-5.0) mmol/L Potassium 3.9 (3.5-5.1) mmol/L POC Chloride (101-112) mmol/L Chloride 105 (98-107) mmol/L Carbon Dioxide 18 L (21-32) mmol/L POC Total CO2 (24-31) mmol/L Anion Gap 11.0 (3-11) POC Anion Gap (16-25) mmol/L POC BUN (7-18) mg/dl BUN 87 H (7-18) mg/dl Creatinine 1.29 H (0.6-1.2) mg/dl POC Creatinine (0.6-1.3) mg/dl Est Cr Clr Drug Dosing Not Reportable Est GFR ( Amer) 48.2 Est GFR (Non-Af Amer) 41.6 BUN/Creatinine Ratio 67.4 H (10-20) Glucose 244 H (70-99) mg/dl POC Glucose (other) (70-99) mg/dl Calcium 8.6 (8.5-10.1) mg/dl POC Ioniz Calcium Jennifer (1.12-1.32) mmol/l Magnesium 1.7 L (1.8-2.4) mg/dl Total Bilirubin 0.3 (0.2-1) mg/dl AST 9 L (15-37) U/L ALT 13 (12-78) U/L Alkaline Phosphatase 59 (45-117) U/L Troponin I < 0.015 (0-0.045) ng/ml Total Protein 6.0 L (6.4-8.2) gm/dl Albumin 3.4 (3.4-5.0) gm/dl Globulin 2.6 (2.5-4.0) gm/dl Albumin/Globulin Ratio 1.3 (0.9-2) Procalcitonin < 0.05 (0-0.5) ng/ml TSH 2.210 (0.300-4.500) uIu/ml POC Stool Occult Blood Positive A (Negative) Blood Type Blood Type Recheck Antibody Screen Crossmatch 09/15/19 09/15/19 Range/Units 22:05 22:57 WBC (4.8-10.8) K/uL RBC (4.2-5.4) M/uL Hgb (12.0-16.0) g/dL POC Hgb 6.8 L* (12.0-16.0) g/dl Hct (37-47) % POC Hct 20 L* (37-47) % MCV (80-100) fL MCH (25-34) pg MCHC (32-36) g/dL RDW Std Deviation (36.4-46.3) fL RDW Coeff of Michael (11.5-14.5) % Plt Count (130-400) K/uL MPV (7.4-10.4) fL Immature Gran % (Auto) % Neut % (Auto) % Lymph % (Auto) % [place] % (Auto) % Eos % (Auto) % Baso % (Auto) % Immature Gran # (Auto) (0.00-0.02) K/uL Neut # (Auto) (1.4-6.5) K/uL Lymph # (Auto) (1.2-3.4) K/uL [place] # (Auto) (0.11-0.59) K/uL Eos # (Auto) (0-0.5) K/uL Baso # (Auto) (0-0.2) K/uL Ovalocytes PT (9.0-12.0) Seconds INR (0.9-1.1) APTT (21.0-31.0) Seconds PTT Ratio POC Sodium 134 L (135-144) mmol/L Sodium (136-145) mmol/L POC Potassium 4.0 (3.3-5.0) mmol/L Potassium (3.5-5.1) mmol/L POC Chloride 102 (101-112) mmol/L Chloride (98-107) mmol/L Carbon Dioxide (21-32) mmol/L POC Total CO2 16 L (24-31) mmol/L Anion Gap (3-11) POC Anion Gap 21.0 (16-25) mmol/L POC BUN 95 H (7-18) mg/dl BUN (7-18) mg/dl Creatinine (0.6-1.2) mg/dl POC Creatinine 1.1 (0.6-1.3) mg/dl Est Cr Clr Drug Dosing Est GFR ( Amer) Est GFR (Non-Af Amer) BUN/Creatinine Ratio (10-20) Glucose (70-99) mg/dl POC Glucose (other) 243 H (70-99) mg/dl Calcium (8.5-10.1) mg/dl POC Ioniz Calcium Jennifer 1.23 (1.12-1.32) mmol/l Magnesium (1.8-2.4) mg/dl Total Bilirubin (0.2-1) mg/dl AST (15-37) U/L ALT (12-78) U/L Alkaline Phosphatase (45-117) U/L Troponin I (0-0.045) ng/ml Total Protein (6.4-8.2) gm/dl Albumin (3.4-5.0) gm/dl Globulin (2.5-4.0) gm/dl Albumin/Globulin Ratio (0.9-2) Procalcitonin (0-0.5) ng/ml TSH (0.300-4.500) uIu/ml POC Stool Occult Blood (Negative) Blood Type Blood Type Recheck A Negative Antibody Screen Crossmatch Imaging Data Radiologist's Impression: [facility], [place] [phone] XRay Report Patient: JD LEEAdmit Date: 09/16/19 MR#: [id number]: [id number] [facility] Acct ID:[id number]: Date: 1950[facility] Zip: [place] [address] Age: 69Location: 2S Sex: F Room/Bed: [facility] Att Phy: Caleb Tyson, MDDiagnosis: RAPID AF Siomara Phy: Rukhsana Montanez Date: 09/15/19 Fam Phy:Interpreting Phy: Lexx Patton MD Admit Phy: Slim Raya MD Ordering Phy: Forrest Cross MD cc: ~ XR chest 1V portable CLINICAL HISTORY: Pt GI bleed dyspnea COMPARISON STUDY: No previous studies for comparison. FINDINGS: The bones soft tissues and hemidiaphragms are normal. The cardiomediastinal silhouette is normal. The lungs are clear. The pulmonary vasculature is normal. IMPRESSION: Negative chest. ACT 112: Negative or not required by law. The above report was generated using voice recognition software. It may contain grammatical, syntax or spelling errors. Electronically signed by: Lexx Patton M.D. 09/16/2019 7:05 AM Dictated: 09/16/19704 Transcribed: 09/16/19704 JD LEE 69 F 1950 [address] [place], [place] [phone] CT Scan Report Patient: JD LEEAdmit Date: 09/16/19 MR#: [id number]: [id number] [facility] Acct ID:[id number]: Date: [address] Zip: [place] [address] Age: 69Location: 2S Sex: F Room/Bed: [facility] Att Phy: Donald Silva MDDiagnosis: RAPID AF Siomara Phy: Rukhsana Montanez Date: 09/16/19 Fam Phy:Interpreting Phy: Lexx Patton MD Admit Phy: Slim Raya MD Ordering Phy: Slim Raya MD cc: ~ CT abd pelvis wo con CT DOSE: 552.52 mGy.cm HISTORY: Pain abd pain TECHNIQUE: Multiaxial CT images of the abdomen and pelvis were performed without contrast. A dose lowering technique was utilized adhering to the principles of ALARA. COMPARISON STUDY: 10/22/2017 FINDINGS: Lung bases are clear. Liver spleen and pancreas are unremarkable. Prior cholecystectomy. Mild cortical scarring of the kidneys with no evidence for hydronephrosis. Nonobstructive bowel pattern. Bladder is midline. No free fluid within the pelvic cul-de-sac. Prior hysterectomy. IMPRESSION: No acute process post cholecystectomy and hysterectomy. ACT 112: Negative or not required by law. The above report was generated using voice recognition software. It may contain grammatical, syntax or spelling errors. Electronically signed by: Lexx Patton M.D. 09/16/2019 7:28 AM Dictated: 09/16/19726 Transcribed: 09/16/19726 ECG Data Indication: + other (Hypotension) Rate (beats per minute): 114 Rhythm: + atrial fibrillation (with RVR) ECG Intervals/blocks: + Normal QT-c (410) ECG [place]: + Normal ECG ST segments: + T-wave inversions (lateral leads); no ST depression and no ST elevation Comparison ECG Date: from (10/22/2017) Change: the following changes noted (T wave inversions in lateral leads) Blood Pressure Blood Pressure Findings: Low blood pressure MDM Narrative This is a 69-year-old female who presents emergency department complaining of generalized weakness. Patient's hemoglobin was found to be 6. She was typed and screened and crossed for 2 units of packed red blood cells. She was started on a Protonix bolus and drip. I did discuss the case with the hospitalist service who did agree to admit the patient. Patient was seen and evaluated as above in room B4. Review was performed of nursing notes and vital signs. I did review pertinent previous visits and patient history. After obtaining a thorough history and physical examination the above work up was performed. An order was placed for continuous cardiac monitoring. The monitor shows a rate of 90 with atrial fib rhythm. The patient was evaluated during the global COVID-19 pandemic, and that diagnosis was suspected/considered upon their initial presentation. Their evaluation, treatment and testing was consistent with current guidelines for patients who present with complaints or symptoms that may be related to COVID- 19. Impression & Plan Hypotension, A-fib, Acute GI bleeding, Anemia Discharge Plan Visit Data *Final* Discharge Date/Time: 09/16/19 00:46 Chief Complaint: Urinary Symptoms Stated Complaint: DIZZINESS, POSSIBLE UTI ED Provider: Forrest Cross Discharge Problem: Hypotension, A-fib, Acute GI bleeding, Anemia Patient Disposition: Admitted As Inpatient Discharge Instructions Interventions: ED Discharge Assessment Last Done: 09/16/19 00:46 Discharge Problem: Hypotension Qualifiers: Hypotension type: unspecified hypotension type Qualified Code(s): I95.9 - Hypotension, unspecified A-fib Qualifiers: Atrial fibrillation type: unspecified Qualified Code(s): I48.91 - Unspecified atrial fibrillation Anemia Qualifiers: Anemia type: unspecified type Qualified Code(s): D64.9 - Anemia, unspecified
--- NOTE | 2019-09-16 16:04 | Gastrointestinal Consultation ---
Date of Consultation September 16, 2019 Assessment & Plan (1) Anemia: (2) Peptic ulcer disease: likely PUD given naproxen use. s/p transfusion with 1 unit PRBC. recs: Protonix IV 40 mg BID insert two large bore peripheral IVs IVFs keep NPO post midnight for possible EGD tomorrow trend H/H, transfuse prn Thank you for allowing me to participate in the care of this patient History of Present Illness Attending Physician: Donald Silva MD 69 yo female with hx afib on eliquis started few weeks ago here with anemia and hypotension and dark stool. She takes naproxen daily for arthritis, has noted dark stools lately as well as lightheadedness. Denies n/v, hematemesis nor other sx's. hgb noted to be 7.2, was transfused and now 8 labs reviewed. Allergies Allergy/AdvReac Type Severity Reaction Status Date / Time No Known Allergies Allergy Unverified 09/15/19 22:55 Home Medications Home Medications Medication Instructions Recorded Confirmed Type apixaban [Eliquis] 5 mg PO BID 09/15/19 09/15/19 History atenolol [Tenormin] 50 mg PO DAILY 09/15/19 09/15/19 History metformin [Glucophage] 500 mg PO DAILY 09/15/19 09/15/19 History naproxen [Naprosyn] 500 mg PO DAILY 09/15/19 09/15/19 History simvastatin [Zocor] 20 mg PO HS 09/15/19 09/15/19 History valsartan-hydrochlorothiazide 1 tab PO DAILY 09/15/19 09/15/19 History [Diovan HCT] Patient History Social History Preferred Language: Swedish Communication Ability: Effective Hair Assistant Required: No Beliefs That Will Affect Care: None Current Living Situation: Family Current Living Situation Comment: lives with daughter Other Information That Helps Us Care for You: No Feels Safe at Home: Yes Safety Concerns: Feels Safe At This Time Smoking Status: Never smoker Hx Alcohol Use: Yes Alcohol type: wine Hx Substance Use: No Review of Systems Constitutional: no fever, no chills and no weight loss Eyes: as per Subjective / HPI Ear, Nose, Mouth, Throat: as per Subjective / HPI Respiratory: no dyspnea and no dyspnea on exertion Cardiovascular: no chest pain and no palpitations Gastrointestinal: as per Subjective / HPI Musculoskeletal: no joint pain and no swelling Integumentary: no rash and no lesions Neurologic: no numbness and no paresthesia Psychiatric: no depression and no anxiety Endocrine: no fatigue Hematologic / Lymphatic: no easy bleeding and no easy bruising Physical Exam Constitutional: WD/WN, vitals as above Eyes: EOM intact bilaterally Neck: normal visual inspection Respiratory: normal respiratory effort, lungs clear to auscultation Cardiovascular: RRR, no murmur, no edema Gastrointestinal (Abdomen): Inspection/Auscultation: abdomen normal to inspection; abdomen not distended Percussion/Palpation: abdomen soft; abdomen nontender and no hepatosplenomegaly Musculoskeletal: Extremities: no cyanosis Gait: normal gait Skin: no rashes, warm and dry Neurologic: moves all extremities Psychiatric: A+Ox3, euthymic affect Results & Data ([facility]) Vital Signs (Past 12 Hours) Vital Signs Temp Pulse Pulse Resp BP BP Pulse Ox 09/16/19 15:55 36.8 C 69 18 99/65 L 99 09/16/19 11:54 36.7 C 70 18 99/59 L 99 09/16/19 10:03 36.9 C 90 16 111/63 100 09/16/19 09:30 36.9 C 71 18 101/62 96 09/16/19 09:02 36.9 C 86 16 122/65 100 09/16/19 08:33 36.9 C 78 18 108/66 100 09/16/19 08:04 36.8 C 72 16 91/50 L 96 09/16/19 07:48 36.9 C 71 16 107/50 L 100 09/16/19 07:33 36.9 C 74 16 97/44 L 100 09/16/19 07:18 37 C 90 16 104/56 L 100 09/16/19 06:04 89 09/16/19 05:57 85 94/57 L PG Care Time/CCT Total # of Minutes Spent Total Time Spent with Patient: Total time spent is greater than 50% in coordination of care (as documented) at patient's floor/unit and/or counseling patient: Coding Level of Care Code 50092 Initial Inpt Care Lvl 3 Diagnoses Anemia D64.9 Anemia type: unspecified type Peptic ulcer disease K27.9 (1) Anemia Anemia type: unspecified type Qualified Code(s): D64.9 - Anemia, unspecified
--- NOTE | 2019-09-16 16:27 | Hospitalist Progress Note ---
Date of Service September 16, 2019 Assessment & Plan (1) Hypotension: Multifactorial : UGIB, hx A. fib on Eliquis. NSAID intake for arthritis symptoms (differentials include gastritis, PUD) -- s/p 2 unit pRBC Hg 7 --> 8.0 goal Hg 8 (patient symptomatic) repeat q6h starting at 6pm -- Protonix drip NPO, IV fluids for EGD tomorrow Severe sepsis (SIRS plus lactic acidosis plus ARF) secondary to complicated UTI -- afebrile so far WBC improved from 18 to 12 -- urine culture pending blood culture pending -- on Cefepime IV monitor Anemia secondary to UGI B, unknown baseline -- management per #1 A. fib, rate slightly uncontrolled secondary to illness -- HR improved Atenolol reduced to 25mg daily to prevent hypotension hypertension, BP on the lower side -- Atenolol reduced to 25mg daily to prevent hypotension Hyperlipidemia, on statin Rx DM 2 on oral meds, elevated BSG, unknown baseline -- Basal insulin adjusted for n.p.o. status in anticipation of procedure, ISS BG goal [id number], check hemoglobin A1c DVT prophylaxis -- SCDs while Eliquis on hold. DNR Disposition lives with family at home Admission and Anticipated Discharge Date Admission Date: September 16, 2019 Subjective ff up for GI bleed seen resting in bed, not in distress, comfortable states she still feels weak today but improved compared to yesterday no melena so far, no abdominal pain ,nausea/vomiting no chest pain, dyspnea, dizziness, palpitations no other symptoms Review of Systems Review of Systems: All systems reviewed & are unremarkable except as noted in HPI & below Physical Exam Physical Exam: General- oriented x 3, not in distress, speaks in sentences with no effort or accessory muscle use Head- atraumatic Eyes- PERRL, EOMI, anicteric pale conjunctivae ENT- oropharynx clear Neck- supple, no JVD, no adenopathy, no thyromegaly; carotids +2/2, no bruits appreciated Lungs- clear to auscultation bilaterally, no rales/wheezes Heart- normal rate, irregularly irregular rhythm; no murmur, no gallop, no rub appreciated Abdomen- normal bowel sounds, nondistended, soft, nontender, no masses or hepatosplenomegaly Extremities- no pretibial edema, no calf tenderness; peripheral pulses intact Neuro- alert, oriented x 3; CN 2-12 grossly intact; motor 5/5 bilaterally;sensation 100% on all extremities; no other gross focal neurologic deficits Skin- warm & dry Results & Data Results & Data ([facility]) Vital Signs (Past 12 Hours) Vital Signs Temp Pulse Pulse Resp BP BP Pulse Ox 09/16/19 15:55 36.8 C 69 18 99/65 L 99 09/16/19 11:54 36.7 C 70 18 99/59 L 99 09/16/19 10:03 36.9 C 90 16 111/63 100 09/16/19 09:30 36.9 C 71 18 101/62 96 09/16/19 09:02 36.9 C 86 16 122/65 100 09/16/19 08:33 36.9 C 78 18 108/66 100 09/16/19 08:04 36.8 C 72 16 91/50 L 96 09/16/19 07:48 36.9 C 71 16 107/50 L 100 09/16/19 07:33 36.9 C 74 16 97/44 L 100 09/16/19 07:18 37 C 90 16 104/56 L 100 09/16/19 06:04 89 09/16/19 05:57 85 94/57 L Laboratory Results Laboratory Results - last 24 hr 09/15/19 09/15/19 09/15/19 21:58 21:58 21:58 WBC 18.22 H RBC 2.44 L Hgb 7.2 L POC Hgb Hct 21.5 L POC Hct MCV 88.1 MCH 29.5 MCHC 33.5 RDW Std Deviation 44.7 RDW Coeff of Michael 13.8 Plt Count 249 MPV 11.9 H Immature Gran % (Auto) 0.3 Neut % (Auto) 79.0 Lymph % (Auto) 15.6 [place] % (Auto) 4.7 Eos % (Auto) 0.2 Baso % (Auto) 0.2 Immature Gran # (Auto) 0.05 H Neut # (Auto) 14.42 H Lymph # (Auto) 2.84 [place] # (Auto) 0.85 H Eos # (Auto) 0.03 Baso # (Auto) 0.03 Ovalocytes 1+ PT 12.8 H INR 1.2 H APTT 27.7 PTT Ratio 1.0 POC Sodium Sodium POC Potassium Potassium POC Chloride Chloride Carbon Dioxide POC Total CO2 Anion Gap POC Anion Gap POC BUN BUN Creatinine POC Creatinine Est Cr Clr Drug Dosing Est GFR ( Amer) Est GFR (Non-Af Amer) BUN/Creatinine Ratio Glucose POC Glucose POC Glucose (other) Estimat Average Glucose Hemoglobin A1c Lactate Calcium POC Ioniz Calcium Jennifer Magnesium Total Bilirubin AST ALT Alkaline Phosphatase Troponin I Total Protein Albumin Globulin Albumin/Globulin Ratio Procalcitonin TSH Urine Color Urine Appearance Urine pH Ur Specific [place] Urine Protein Urine Glucose (UA) Urine Ketones Urine Blood Urine Nitrite Urine Bilirubin Urine Urobilinogen Ur Leukocyte Esterase Urine WBC (Auto) Urine RBC (Auto) U Hyaline Cast (Auto) U Epithel Cells (Auto) Urine Bacteria (Auto) POC Stool Occult Blood Blood Type A Negative Blood Type Recheck Antibody Screen NEGATIVE Crossmatch See Detail 09/15/19 09/15/19 09/15/19 21:58 21:58 22:02 WBC RBC Hgb POC Hgb Hct POC Hct MCV MCH MCHC RDW Std Deviation RDW Coeff of Michael Plt Count MPV Immature Gran % (Auto) Neut % (Auto) Lymph % (Auto) [place] % (Auto) Eos % (Auto) Baso % (Auto) Immature Gran # (Auto) Neut # (Auto) Lymph # (Auto) [place] # (Auto) Eos # (Auto) Baso # (Auto) Ovalocytes PT INR APTT PTT Ratio POC Sodium Sodium 134 L POC Potassium Potassium 3.9 POC Chloride Chloride 105 Carbon Dioxide 18 L POC Total CO2 Anion Gap 11.0 POC Anion Gap POC BUN BUN 87 H Creatinine 1.29 H POC Creatinine Est Cr Clr Drug Dosing Not Reportable Est GFR ( Amer) 48.2 Est GFR (Non-Af Amer) 41.6 BUN/Creatinine Ratio 67.4 H Glucose 244 H POC Glucose POC Glucose (other) Estimat Average Glucose Pending Hemoglobin A1c Pending Lactate Calcium 8.6 POC Ioniz Calcium Jennifer Magnesium 1.7 L Total Bilirubin 0.3 AST 9 L ALT 13 Alkaline Phosphatase 59 Troponin I < 0.015 Total Protein 6.0 L Albumin 3.4 Globulin 2.6 Albumin/Globulin Ratio 1.3 Procalcitonin < 0.05 TSH 2.210 Urine Color Urine Appearance Urine pH Ur Specific [place] Urine Protein Urine Glucose (UA) Urine Ketones Urine Blood Urine Nitrite Urine Bilirubin Urine Urobilinogen Ur Leukocyte Esterase Urine WBC (Auto) Urine RBC (Auto) U Hyaline Cast (Auto) U Epithel Cells (Auto) Urine Bacteria (Auto) POC Stool Occult Blood Blood Type Blood Type Recheck Antibody Screen Crossmatch 09/15/19 09/15/19 09/15/19 22:03 22:05 22:57 WBC RBC Hgb POC Hgb 6.8 L* Hct POC Hct 20 L* MCV MCH MCHC RDW Std Deviation RDW Coeff of Michael Plt Count MPV Immature Gran % (Auto) Neut % (Auto) Lymph % (Auto) [place] % (Auto) Eos % (Auto) Baso % (Auto) Immature Gran # (Auto) Neut # (Auto) Lymph # (Auto) [place] # (Auto) Eos # (Auto) Baso # (Auto) Ovalocytes PT INR APTT PTT Ratio POC Sodium 134 L Sodium POC Potassium 4.0 Potassium POC Chloride 102 Chloride Carbon Dioxide POC Total CO2 16 L Anion Gap POC Anion Gap 21.0 POC BUN 95 H BUN Creatinine POC Creatinine 1.1 Est Cr Clr Drug Dosing Est GFR ( Amer) Est GFR (Non-Af Amer) BUN/Creatinine Ratio Glucose POC Glucose POC Glucose (other) 243 H Estimat Average Glucose Hemoglobin A1c Lactate Calcium POC Ioniz Calcium Jennifer 1.23 Magnesium Total Bilirubin AST ALT Alkaline Phosphatase Troponin I Total Protein Albumin Globulin Albumin/Globulin Ratio Procalcitonin TSH Urine Color Urine Appearance Urine pH Ur Specific [place] Urine Protein Urine Glucose (UA) Urine Ketones Urine Blood Urine Nitrite Urine Bilirubin Urine Urobilinogen Ur Leukocyte Esterase Urine WBC (Auto) Urine RBC (Auto) U Hyaline Cast (Auto) U Epithel Cells (Auto) Urine Bacteria (Auto) POC Stool Occult Blood Positive A Blood Type Blood Type Recheck A Negative Antibody Screen Crossmatch 09/16/19 09/16/19 09/16/19 00:20 01:50 02:17 WBC RBC Hgb POC Hgb Hct POC Hct MCV MCH MCHC RDW Std Deviation RDW Coeff of Michael Plt Count MPV Immature Gran % (Auto) Neut % (Auto) Lymph % (Auto) [place] % (Auto) Eos % (Auto) Baso % (Auto) Immature Gran # (Auto) Neut # (Auto) Lymph # (Auto) [place] # (Auto) Eos # (Auto) Baso # (Auto) Ovalocytes PT INR APTT PTT Ratio POC Sodium Sodium POC Potassium Potassium POC Chloride Chloride Carbon Dioxide POC Total CO2 Anion Gap POC Anion Gap POC BUN BUN Creatinine POC Creatinine Est Cr Clr Drug Dosing Est GFR ( Amer) Est GFR (Non-Af Amer) BUN/Creatinine Ratio Glucose POC Glucose 191 H POC Glucose (other) Estimat Average Glucose Hemoglobin A1c Lactate 3.1 H* Calcium POC Ioniz Calcium Jennifer Magnesium Total Bilirubin AST ALT Alkaline Phosphatase Troponin I Total Protein Albumin Globulin Albumin/Globulin Ratio Procalcitonin TSH Urine Color Yellow Urine Appearance Clear Urine pH 5.0 Ur Specific [place] 1.019 Urine Protein Negative Urine Glucose (UA) Negative Urine Ketones Negative Urine Blood Trace H Urine Nitrite Negative Urine Bilirubin Negative Urine Urobilinogen Negative Ur Leukocyte Esterase 2+ H Urine WBC (Auto) 5-10 H Urine RBC (Auto) 0-4 U Hyaline Cast (Auto) 1-5 U Epithel Cells (Auto) >30 H Urine Bacteria (Auto) Negative POC Stool Occult Blood Blood Type Blood Type Recheck Antibody Screen Crossmatch 09/16/19 09/16/19 09/16/19 05:49 05:49 05:49 WBC 12.54 H RBC 2.33 L Hgb 7.1 L POC Hgb Hct 20.6 L* POC Hct MCV 88.4 MCH 30.5 MCHC 34.5 RDW Std Deviation 45.0 RDW Coeff of Michael 13.9 Plt Count 165 MPV 11.8 H Immature Gran % (Auto) 0.2 Neut % (Auto) 65.6 Lymph % (Auto) 27.6 [place] % (Auto) 5.7 Eos % (Auto) 0.7 Baso % (Auto) 0.2 Immature Gran # (Auto) 0.03 H Neut # (Auto) 8.21 H Lymph # (Auto) 3.46 H [place] # (Auto) 0.72 H Eos # (Auto) 0.09 Baso # (Auto) 0.03 Ovalocytes 1+ PT INR APTT PTT Ratio POC Sodium Sodium 141 D POC Potassium Potassium 3.9 POC Chloride Chloride 111 H Carbon Dioxide 22 POC Total CO2 Anion Gap 8.0 POC Anion Gap POC BUN BUN 75 H Creatinine 1.01 POC Creatinine Est Cr Clr Drug Dosing 59.7 Est GFR ( Amer) 64.9 Est GFR (Non-Af Amer) 56.0 BUN/Creatinine Ratio 74.4 H Glucose 139 H POC Glucose POC Glucose (other) Estimat Average Glucose Hemoglobin A1c Lactate 1.6 Calcium 8.0 L POC Ioniz Calcium Jennifer Magnesium 2.1 Total Bilirubin AST ALT Alkaline Phosphatase Troponin I Total Protein Albumin Globulin Albumin/Globulin Ratio Procalcitonin TSH Urine Color Urine Appearance Urine pH Ur Specific [place] Urine Protein Urine Glucose (UA) Urine Ketones Urine Blood Urine Nitrite Urine Bilirubin Urine Urobilinogen Ur Leukocyte Esterase Urine WBC (Auto) Urine RBC (Auto) U Hyaline Cast (Auto) U Epithel Cells (Auto) Urine Bacteria (Auto) POC Stool Occult Blood Blood Type Blood Type Recheck Antibody Screen Crossmatch 09/16/19 09/16/19 09/16/19 05:49 11:55 12:24 WBC RBC Hgb 8.0 L POC Hgb Hct 23.2 L POC Hct MCV MCH MCHC RDW Std Deviation RDW Coeff of Michael Plt Count MPV Immature Gran % (Auto) Neut % (Auto) Lymph % (Auto) [place] % (Auto) Eos % (Auto) Baso % (Auto) Immature Gran # (Auto) Neut # (Auto) Lymph # (Auto) [place] # (Auto) Eos # (Auto) Baso # (Auto) Ovalocytes PT INR APTT PTT Ratio POC Sodium Sodium POC Potassium Potassium POC Chloride Chloride Carbon Dioxide POC Total CO2 Anion Gap POC Anion Gap POC BUN BUN Creatinine POC Creatinine Est Cr Clr Drug Dosing Est GFR ( Amer) Est GFR (Non-Af Amer) BUN/Creatinine Ratio Glucose POC Glucose 163 H 143 H POC Glucose (other) Estimat Average Glucose Hemoglobin A1c Lactate Calcium POC Ioniz Calcium Jennifer Magnesium Total Bilirubin AST ALT Alkaline Phosphatase Troponin I Total Protein Albumin Globulin Albumin/Globulin Ratio Procalcitonin TSH Urine Color Urine Appearance Urine pH Ur Specific [place] Urine Protein Urine Glucose (UA) Urine Ketones Urine Blood Urine Nitrite Urine Bilirubin Urine Urobilinogen Ur Leukocyte Esterase Urine WBC (Auto) Urine RBC (Auto) U Hyaline Cast (Auto) U Epithel Cells (Auto) Urine Bacteria (Auto) POC Stool Occult Blood Blood Type Blood Type Recheck Antibody Screen Crossmatch (1) Hypotension Hypotension type: unspecified hypotension type Qualified Code(s): I95.9 - Hypotension, unspecified
[2019-09-16] MEDS: ACETAMINOPHEN 325 MG TAB PO PRN (16:42)
[2019-09-16 18:11] LABS: Hemoglobin 8.6 g/dL (12.0-16.0)
[2019-09-16] MEDS ORDERED: CEFEPIME 2,000 MG in SYRINGE 7.5 ML IV SCH (22:00)
[2019-09-16] MEDS: INSULIN GLARGINE SOLOSTAR 100 UNITS/ML 3 ML PEN SC SCH (22:02)
[2019-09-16] MEDS: SIMVASTATIN 20 MG TAB PO SCH (22:04)
[2019-09-17] MEDS: TRAMADOL HCL 50 MG TABLET PO PRN ×2 (00:27→11:54)
[2019-09-17] MEDS: INSULIN ASPART 100 UNITS/ML 3 ML PEN SC SCH ×6 (00:38→20:46)
[2019-09-17] MEDS ORDERED: SODIUM CHLORIDE 0.9% 250 ML IV PRN (01:43)
[2019-09-17] MEDS: PANTOprazole 40 MG in DEXTROSE 5% 100 ML IV SCH ×4 (03:06→16:26)
[2019-09-17 05:53] LABS: Estimated Average Glucose 128 mg/dl; Hemoglobin A1C 6.1 % (4.5-5.6)
--- NOTE | 2019-09-17 07:26 | History & Physical Bridge Note ---
Date of Service September 17, 2019 History & Physical Bridge Note I have examined the patient, reviewed the History & Physical and in the interval since the performance of the History & Physical I have noted the following changes of clinical significance: no changes noted Proceed with EGD. risks/benefits and procedure discussed with patient, who agrees to proceed
--- NOTE | 2019-09-17 09:11 | Anesthesiology Consultation ---
Date of Service September 17, 2019 Assessment & Plan Chart Review Chart Review: Acceptable Risk for Surgery and Patient NOT seen in Pre Admission Testing Consults Requested none ASA ASA4 Proposed Anesthesia Anesthesia Type: MAC Risk / Benefits Reviewed With: PT / POA / Parent / Guardian, Accepts Plan and Informed Consent Obtained Additional Comments: no covid S/sx's;not tested History Surgery Operation Date: 09/17/19 14:50 Proposed Procedures p Esophagogastroduodenoscopy Dr. Mt Amor MD Height/Weight Height: 5 ft 8 in Weight: 89.3 kg Allergies Allergy/AdvReac Type Severity Reaction Status Date / Time No Known Allergies Allergy Unverified 09/15/19 22:55 Medications Home Medications Medication Instructions Recorded Confirmed Last Taken apixaban [Eliquis] 5 mg PO BID 09/15/19 09/15/19 Unknown atenolol [Tenormin] 50 mg PO DAILY 09/15/19 09/15/19 Unknown metformin [Glucophage] 500 mg PO DAILY 09/15/19 09/15/19 Unknown naproxen [Naprosyn] 500 mg PO DAILY 09/15/19 09/15/19 Unknown simvastatin [Zocor] 20 mg PO HS 09/15/19 09/15/19 Unknown valsartan-hydrochlorothiazide 1 tab PO DAILY 09/15/19 09/15/19 Unknown [Diovan HCT] Active Medications Generic Name Dose Route Start Last Admin Trade Name Freq PRN Reason Stop Dose Admin Acetaminophen 650 mg 09/16/19 01:57 09/16/19 16:42 Tylenol PO 10/16/19 01:56 650 mg Q4H PRN Administration Pain or Fever Atenolol 25 mg 09/16/19 09:00 09/16/19 11:39 Tenormin PO 10/16/19 08:59 Not Given DAILY JAIDEN Pantoprazole Sodium 40 mg/ 100 mls @ 20 mls/hr 09/15/19 22:11 09/17/19 08:32 Dextrose IV 10/15/19 22:10 8 mg/hr Q5H JAIDEN 20 mls/hr Administration 8 MG/HR Parenteral Electrolytes 1,000 mls @ 60 mls/hr 09/16/19 02:15 09/17/19 06:00 Normosol-R IV 10/16/19 02:14 60 mls/hr .[id number] JAIDEN Infusion Cefepime HCl 2,000 mg/ Syringe 20 mls @ 5 mls/min 09/16/19 22:00 09/16/19 22:08 IV 09/25/19 21:59 5 mls/min Q24H JAIDEN Administration Protocol Insulin Aspart 0 units 09/16/19 02:45 09/17/19 06:00 Novolog Flexpen SC 10/16/19 02:44 Not Given Q6 JAIDEN Insulin Glargine 5 units 09/16/19 21:00 09/16/19 22:02 Lantus Solostar Pen SC 10/16/19 20:59 5 units HS JAIDEN Administration Simvastatin 20 mg 09/16/19 21:00 09/16/19 22:04 Zocor PO 10/16/19 20:59 20 mg HS JAIDEN Administration Tramadol HCl 25 - 50 mg 09/16/19 01:57 09/17/19 00:27 Ultram PO 10/16/19 01:56 50 mg Q4H PRN Administration Pain NPO Date Last Intake of Fluids: 09/17/19 Time Last Intake of Fluids: 04:00 Date Last Intake of Solids: 09/15/19 Time Last Intake of Solids: 21:00 Exercise / Class Metabolic Activity III < 4 Walking/Shop/Light housework Past Anesthesia History No Hx of Anesthesia Complications and No Family Hx of Anesthesia Complications History of PONV No Hx of PONV and No Hx of Motion Sickness Social History Smoking Status: Never smoker Hx Alcohol Use: Yes Alcohol type: wine alcohol intake frequency: holidays/special occasions only Hx Substance Use: No substance use type: does not use Physical Exam Vital Signs Last Vital Signs Temp 36.4 C L 09/17/19 07:24 Pulse 74 09/17/19 07:57 Resp 19 09/17/19 07:24 BP 104/61 09/17/19 07:24 Pulse Ox 99 09/17/19 07:24 Constitutional + obese ENMT Mouth: + dentition abnormality and + edentulous Thyromental Distance: < 3.5 Finger Breadths Mallampati Class: II Neck normal visual inspection and trachea midline; neck extension not limited Respiratory normal respiratory effort Auscultation: lungs clear to auscultation bilaterally Cardiovascular Rate/Rhythm: + abnormal rate and + abnormal rhythm Heart Sounds: no murmur Vessels: no carotid bruit irreg.,afib Musculoskeletal Spine: normal cervical ROM Extremities: extremities normal to inspection Neurologic moves all extremities Motor/Sensory: no sensory deficit Psychiatric Orientation: alert and oriented x 3 Testing Laboratory Results 09/17/19 06:10 09/16/19 05:49 PT 12.8 Seconds (9.0-12.0) H 09/15/19 21:58 INR 1.2 (0.9-1.1) H 09/15/19 21:58 APTT 27.7 Seconds (21.0-31.0) 09/15/19 21:58 Hemoglobin A1c 6.1 % (4.5-5.6) H 09/15/19 21:58 Urine Color Yellow 09/16/19 01:50 Urine Appearance Clear (Clear) 09/16/19 01:50 Urine pH 5.0 (4.5-7.5) 09/16/19 01:50 Ur Specific [place] 1.019 (1.000-1.030) 09/16/19 01:50 Urine Protein Negative (Negative) 09/16/19 01:50 Urine Glucose (UA) Negative (Negative) 09/16/19 01:50 Urine Ketones Negative (Negative) 09/16/19 01:50 Urine Nitrite Negative (Negative) 09/16/19 01:50 Ur Leukocyte Esterase 2+ (Negative) H 09/16/19 01:50 Urine WBC (Auto) 5-10 /hpf (0-5) H 09/16/19 01:50 Urine RBC (Auto) 0-4 /hpf (0-4) 09/16/19 01:50 U Hyaline Cast (Auto) 1-5 /lpf (0-5) 09/16/19 01:50 U Epithel Cells (Auto) >30 /lpf (0-5) H 09/16/19 01:50 Urine Bacteria (Auto) Negative (Negative) 09/16/19 01:50 Blood Type A Negative 09/15/19 21:58 Antibody Screen NEGATIVE 09/15/19 21:58 09/16/19 01:50 Urine Culture - Final Urine,Clean Catch More than three types of organisms present, all high counts mixed probable skin los - No further identifications or sensitivities to follow. 09/16/19 00:23 Aerobic Blood Culture - Preliminary Blood No growth in Aerobic bottle after 24 hours. Anaerobic Blood Culture - Preliminary No growth in Anaerobic bottle after 24 hours. 09/16/19 00:20 Aerobic Blood Culture - Preliminary Blood No growth in Aerobic bottle after 24 hours. Anaerobic Blood Culture - Preliminary No growth in Anaerobic bottle after 24 hours. 09/17/19 09/17/19 09/16/19 05:55 00:25 22:00 POC Glucose 106 H 113 H 122 H Electrocardiogram Date: 09/15/19 Findings: + NSST changes and + AFIB @ (at 114)
[2019-09-17] MEDS ORDERED: ePHEDrine sulfate 50 MG/ML AMP IV PRN (09:17)
[2019-09-17] MEDS ORDERED: ATROPINE SULFATE 0.1 MG/ML 10ML SYR IV PRN (09:17)
[2019-09-17] MEDS ORDERED: PROPOFOL IV EMULSION 10 MG/ML 20 ML VIAL IV ONE (09:35)
[2019-09-17] MEDS ORDERED: LIDOCAINE HCL 2% 2 ML VIAL/AMP(20MG/ML) INFIL ONE (09:35)
[2019-09-17] MEDS ORDERED: PHENYLEPHRINE 100MCG/ML 5ML SYR ONE (09:38)
--- NOTE | 2019-09-17 09:39 | GI REPORT ---
Patient Name: Rosamaria Huitron Procedure Date: 09/17/2019 9:26 AM Date of : 1950 Admit Type: Inpatient Age: 69 Gender: Female Attending MD: Pietro Amor MD Procedure: Upper GI endoscopy Providers: Pietro Amor MD Referring MD: Slim Ramirez Indications: Acute post hemorrhagic anemia Medicines: Monitored Anesthesia Care Complications: No immediate complications. Estimated blood loss: None. Estimated Blood Loss: Estimated blood loss: none. Procedure: Pre-Anesthesia Assessment: - Prior Anticoagulants: The patient has taken Eliquis (apixaban), last dose was 3 days prior to procedure. - ASA Grade Assessment: III - A patient with severe systemic disease. After obtaining informed consent, the endoscope was passed under direct vision. Throughout the procedure, the patient's blood pressure, pulse, and oxygen saturations were monitored continuously. The Endoscope was introduced through the mouth, and advanced to the second part of duodenum. The upper GI endoscopy was accomplished without difficulty. The patient tolerated the procedure well. Findings: The examined esophagus was normal. Few cratered, clean based gastric ulcers were found in the gastric antrum, one of which was very large. Biopsies were taken with a cold forceps for Helicobacter pylori testing. Estimated blood loss: none. The duodenal bulb and second portion of the duodenum were normal. Impression: - Normal esophagus. - Gastric ulcers. Biopsied. likely source of her anemia. - Normal duodenal bulb and second portion of the duodenum. Recommendation: - Return patient to [facility] for ongoing care. - Advance diet as tolerated today. - Await pathology results. protonix 40 mg BID for 3 months EGD in 3 months to reassess Pietro Amor MD 09/17/2019 9:39:08 AM This report has been signed electronically. Note Initiated On: 09/17/2019 9:26 AM Number of Addenda: 0 I attest to the content of the Intraoperative Record and orders documented therein, exceptions below {[id number]}
--- NOTE | 2019-09-17 09:42 | Procedure Note ---
Procedure Note Date of Service September 17, 2019 GI brief procedure/post op note: EGD findings: large PUD in the antrum, likely source of her anemia. biopsies taken for h pylori recs: protonix 40 mg BID for 3 months repeat EGD in 3 months diet as tolerated resume eliquis tonight if stable Pietro Amor MD Gastroenterology Coding
--- NOTE | 2019-09-17 10:00 | Anesthesiology Progress Note ---
Date of Service September 17, 2019 Anesthesia Post Procedure Vital Signs Vital Signs: Temp Pulse Pulse Resp BP BP Pulse Ox 09/17/19 09:54 73 14 107/58 L 100 09/17/19 09:45 68 16 104/50 L 100 09/17/19 09:14 36.7 C 83 16 147/75 H 99 09/17/19 09:12 36.7 C 83 16 147/75 H 99 09/17/19 07:57 74 09/17/19 07:24 36.4 C L 70 19 104/61 99 09/17/19 05:38 36.8 C 73 18 105/63 97 09/17/19 04:38 36.6 C 77 20 99/52 L 99 09/17/19 03:38 36.6 C 75 18 97/58 L 97 09/17/19 03:08 36.6 C 76 18 106/60 96 09/17/19 02:53 36.5 C 81 18 100/61 97 09/17/19 02:47 36.6 C 71 18 98/51 L 97 09/17/19 02:38 36.6 C 73 18 99/55 L 97 09/17/19 00:06 76 09/16/19 23:15 36.9 C 72 17 106/63 100 09/16/19 15:55 36.8 C 69 18 99/65 L 99 09/16/19 11:54 36.7 C 70 18 99/59 L 99 09/16/19 10:03 36.9 C 90 16 111/63 100 Pain Intensity Right Flank: Pain Intensity: 3 Head: Pain Intensity: 9 Transfer of Care Handoff Completed per policy Notes Mental Status: alert / awake / arousable Patient Amnestic to Procedure: Yes Nausea / Vomiting: adequately controlled Pain: adequately controlled Airway Patency, RR, SpO2: stable & adequate BP & HR: stable & adequate Hydration State: stable & adequate Anesthetic Complications: no major complications apparent
[2019-09-17] MEDS: ATENOLOL 25 MG TABLET PO SCH (11:50)
[2019-09-17] MEDS: NORMOSOL-R 1,000 ML IV SCH (11:54)
[2019-09-17] MEDS ORDERED: Nursing to Pharmacy Communication SCH (12:30)
[2019-09-17] MEDS: ACETAMINOPHEN 325 MG TAB PO PRN (18:56)
--- NOTE | 2019-09-17 19:14 | Hospitalist Progress Note ---
Date of Service September 17, 2019 Assessment & Plan (1) Hypotension: Multifactorial : UGIB, hx A. fib on Eliquis. NSAID intake for arthritis symptoms (differentials include gastritis, PUD) -- s/p 3 units pRBC Hg 7 --> 9.7 goal Hg 8 --Status post EGD 09/17/2019 Positive gastric ulcers --Position Protonix from IV drip to p.o. twice daily Liquid diet for now Okay to resume Eliquis per GI service Severe sepsis (SIRS plus lactic acidosis plus ARF) secondary to complicated UTI, ruled out -- afebrile so far WBC improved from 18 to 12 -- urine culture negative blood culture negative --DC cefepime IV monitor Anemia secondary to UGI B, unknown baseline -- management per #1 A. fib, rate slightly uncontrolled secondary to illness -- HR improved Atenolol reduced to 25mg daily to prevent hypotension hypertension, BP on the lower side -- Atenolol reduced to 25mg daily to prevent hypotension Hyperlipidemia, on statin Rx DM 2 on oral meds, elevated BSG, unknown baseline -- Basal insulin adjusted for n.p.o. status in anticipation of procedure, ISS BG goal [id number], A1c 6.1 DVT prophylaxis --Eliquis to be resumed tonight DNR Disposition lives with family at home PT and OT evaluation Admission and Anticipated Discharge Date Admission Date: September 16, 2019 Subjective Follow-up for upper GI bleed Seen resting in bed, comfortable, not in distress States she feels better today Status post EGD today Tolerated procedure well No recurrence of melena No abdominal pain, nausea or vomiting No chest pain, shortness of breath, palpitations, dizziness Denies other symptoms Review of Systems Review of Systems: All systems reviewed & are unremarkable except as noted in HPI & below Physical Exam Physical Exam: General- oriented x 3, not in distress, speaks in sentences with no effort or accessory muscle use Eyes- anicteric Neck- no JVD Lungs- clear breath sounds bilaterally, no rales/wheezes Heart- normal rate, regular rhythm; no murmurs Abdomen- normal bowel sounds, nondistended, soft, nontender Extremities- no pretibial edema, no calf tenderness Neuro- alert, oriented x 3; no gross focal neurologic deficits Skin- warm & dry Results & Data Results & Data ([facility]) Vital Signs (Past 12 Hours) Vital Signs Temp Pulse Pulse Resp BP Pulse Ox 09/17/19 15:56 36.6 C 68 18 92/55 L 98 09/17/19 13:28 67 09/17/19 12:41 36.5 C 73 16 115/69 97 09/17/19 11:08 36.5 C 86 19 106/62 96 09/17/19 10:15 77 16 126/66 99 09/17/19 10:00 78 16 110/59 L 99 09/17/19 09:54 73 14 107/58 L 100 09/17/19 09:45 68 16 104/50 L 100 09/17/19 09:14 36.7 C 83 16 147/75 H 99 09/17/19 09:12 36.7 C 83 16 147/75 H 99 09/17/19 07:57 74 09/17/19 07:24 36.4 C L 70 19 104/61 99 Laboratory Results Laboratory Results - last 24 hr 09/15/19 09/15/19 09/16/19 21:58 21:58 22:00 Hgb POC Glucose 122 H Estimat Average Glucose 128 Hemoglobin A1c 6.1 H Blood Type A Negative Antibody Screen NEGATIVE Crossmatch See Detail 09/16/19 09/17/19 09/17/19 23:51 00:25 05:55 Hgb 7.9 L POC Glucose 113 H 106 H Estimat Average Glucose Hemoglobin A1c Blood Type Antibody Screen Crossmatch 09/17/19 09/17/19 09/17/19 06:10 11:44 12:26 Hgb 9.2 L 9.5 L POC Glucose 126 H Estimat Average Glucose Hemoglobin A1c Blood Type Antibody Screen Crossmatch 09/17/19 09/17/19 16:25 18:05 Hgb 9.7 L POC Glucose 110 H Estimat Average Glucose Hemoglobin A1c Blood Type Antibody Screen Crossmatch (1) Hypotension Hypotension type: unspecified hypotension type Qualified Code(s): I95.9 - Hypotension, unspecified
[2019-09-17] MEDS: SIMVASTATIN 20 MG TAB PO SCH (20:44)
[2019-09-17] MEDS: APIXABAN 5 MG TABLET PO SCH (20:44)
[2019-09-17] MEDS: PANTOprazole 40 MG TAB PO SCH (20:44)
[2019-09-17] MEDS: INSULIN GLARGINE SOLOSTAR 100 UNITS/ML 3 ML PEN SC SCH (20:45)
[2019-09-18 07:11] LABS: Basophils # (auto) 0.03 K/uL (0-0.2); Basophils % (auto) 0.4 %; Eosinophils # (auto) 0.46 K/uL (0-0.5); Eosinophils % (auto) 6.6 %; Hematocrit (blood only) 27.1 % (37-47); Immature Granulocytes # (auto) 0.02 K/uL (0.00-0.02); Immature Granulocytes % (auto) 0.3 %; Lymphocytes # (auto) 2.06 K/uL (1.2-3.4); Lymphocytes % (auto) 29.5 %; Mean Corpuscular Hgb Conc 33.2 g/dL (32-36); Mean Corpuscular Volume 90.3 fL (80-100); Mean Platelet Volume 11.4 fL (7.4-10.4); Monocytes # (auto) 0.53 K/uL (0.11-0.59); Monocytes % (auto) 7.6 %; Neutrophils # (auto) 3.89 K/uL (1.4-6.5); Neutrophils % (auto) 55.6 %; Platelet Count 147 K/uL (130-400); RDW Coefficient of Variation 15.1 % (11.5-14.5); RDW Standard Deviation 49.1 fL (36.4-46.3); White Blood Count 6.99 K/uL (4.8-10.8)
[2019-09-18 07:42] LABS: BUN Creatinine Ratio 21.5 (10-20); Calcium 8.3 mg/dl (8.5-10.1); Creatinine Clr Calc Pharmacy 62.7 ml/min; Est GFR (African American) 69.8; Est GFR (Non-African American) 60.3
[2019-09-18] MEDS: PANTOprazole 40 MG TAB PO SCH (08:07)
[2019-09-18] MEDS: APIXABAN 5 MG TABLET PO SCH (08:07)
[2019-09-18] MEDS: ATENOLOL 25 MG TABLET PO SCH (08:07)
[2019-09-18] MEDS: INSULIN ASPART 100 UNITS/ML 3 ML PEN SC SCH ×2 (08:07→12:08)
--- NOTE | 2019-09-18 09:43 | Gastroenterology Progress Note ---
Date of Service September 18, 2019 Assessment & Plan (1) Anemia: (2) Peptic ulcer disease: 1. Continue Pantoprazole 40 mg BID x 3 months. 2. EGD in 3 months to evaluate for ulcer healing. 3. Continue supportive care. 4. Stable for discharge from GI perspective if cleared by primary team. Admission and Anticipated Discharge Date Admission Date: September 16, 2019 Supervising Physician Co-Signing Physician Notes I personally evaluated the patient and agree with the findings as documented by ROCIO Pittman Exam: abd: soft, nt, nd Subjective Patient reports feeling well. Status post EGD with Dr. Amor yesterday with findings of clean based gastric ulcers. Denies any abdominal pain, n/v or overt GIB. Has not had a bm overnight. Continues Pantoprazole 40 mg BID. Review of Systems Review of Systems: All systems reviewed & are unremarkable except as noted in HPI & below Physical Exam Constitutional: WD/WN, vitals as above Respiratory: normal respiratory effort, lungs clear to auscultation Cardiovascular: RRR, no murmur, no edema Gastrointestinal (Abdomen): normal bowel sounds, soft, nontender, no hepatosplenomegaly Psychiatric: A+Ox3, euthymic affect Results & Data Results & Data ([facility]) Vital Signs (Past 12 Hours) Vital Signs Temp Pulse Pulse Resp BP Pulse Ox 09/18/19 07:04 36.8 C 72 20 112/65 96 09/18/19 03:05 36.6 C 66 16 102/59 L 95 09/18/19 00:51 63 09/17/19 23:19 36.4 C L 62 16 94/53 L 98 Laboratory Results Abnormal lab results 09/17/19 09/17/19 09/17/19 Range/Units 11:44 12:26 16:25 RBC (4.2-5.4) M/uL Hgb 9.5 L (12.0-16.0) g/dL Hct (37-47) % RDW Std Deviation (36.4-46.3) fL RDW Coeff of Michael (11.5-14.5) % MPV (7.4-10.4) fL Chloride (98-107) mmol/L BUN (7-18) mg/dl BUN/Creatinine Ratio (10-20) POC Glucose 126 H 110 H (70-99) mg/dl Calcium (8.5-10.1) mg/dl 09/17/19 09/17/19 09/18/19 Range/Units 18:05 20:18 06:53 RBC 3.00 L (4.2-5.4) M/uL Hgb 9.7 L 9.0 L (12.0-16.0) g/dL Hct 27.1 L (37-47) % RDW Std Deviation 49.1 H (36.4-46.3) fL RDW Coeff of Michael 15.1 H (11.5-14.5) % MPV 11.4 H (7.4-10.4) fL Chloride (98-107) mmol/L BUN (7-18) mg/dl BUN/Creatinine Ratio (10-20) POC Glucose 137 H (70-99) mg/dl Calcium (8.5-10.1) mg/dl 09/18/19 09/18/19 Range/Units 06:53 07:38 RBC (4.2-5.4) M/uL Hgb (12.0-16.0) g/dL Hct (37-47) % RDW Std Deviation (36.4-46.3) fL RDW Coeff of Michael (11.5-14.5) % MPV (7.4-10.4) fL Chloride 111 H (98-107) mmol/L BUN 20 H (7-18) mg/dl BUN/Creatinine Ratio 21.5 H (10-20) POC Glucose 121 H (70-99) mg/dl Calcium 8.3 L (8.5-10.1) mg/dl PG Care Time/CCT Total # of Minutes Spent Total Time Spent with Patient: Total time spent is greater than 50% in coordination of care (as documented) at patient's floor/unit and/or counseling patient: Coding Level of Care Code 83486 Subseq Hosp Care Lvl 3 Diagnoses Anemia D64.9 Anemia type: unspecified type Peptic ulcer disease K27.9 (1) Anemia Anemia type: unspecified type Qualified Code(s): D64.9 - Anemia, unspecified
--- NOTE | 2019-09-18 16:31 | Hospitalist Progress Note ---
Date of Service September 18, 2019 Assessment & Plan (1) Hypotension: Upper GI Bleed secondary to Gastric Ulcers, in the setting of Eliquis and Naproxen use UGIB, hx A. fib on Eliquis. NSAID intake for arthritis symptoms (differentials include gastritis, PUD) -- s/p 3 units pRBC Hg 7 --> 9.0 --Status post EGD 09/17/2019 Impression: - Normal esophagus. - Gastric ulcers. Biopsied. likely source of her anemia. - Normal duodenal bulb and second portion of the duodenum. Pathology: - GASTRIC MUCOSA WITH MILD CHRONIC INFLAMMATION AND REACTIVE CHANGES - NEGATIVE FOR INTESTINAL METAPLASIA, DYSPLASIA AND MALIGNANCY NEGATIVE FOR HELICOBACTER PYLORI ORGANISMS --Patient placed on Protonix drip, transition to p.o. Protonix Eliquis resumed, hemoglobin remained stable around 9 --GI recommendations: Protonix 40 mg twice a day for 3 months Repeat EGD in 3 months for reevaluation care of [facility] Dr[facility] Amor of [facility] group Stop naproxen --Follow-up with PCP in 1 week Repeat hemoglobin during follow-up with PCP in 1 week SIRS plus lactic acidosis plus acute renal failure, sepsis ruled out -- Patient remained afebrile WBC improved from 18 to 12 -- urine culture negative blood culture negative --IV cefepime discontinued Acute blood loss anemia anemia secondary to UGIB, -- management per #1 Hemoglobin 9 on discharge day after 3 units of packed RBCs Monitor as an outpatient A. fib, rate slightly uncontrolled secondary to illness -- HR improved Resume usual atenolol Hypertension -- Atenolol reduced to 25mg daily to prevent hypotension Blood pressure and heart rate stable, resume usual dose of atenolol 50 mg daily Hold valsartan/hydrochlorothiazide to prevent hypotension and dehydration, re-evaluate on follow-up with PCP Hyperlipidemia, on statin Rx DM 2 on oral meds, elevated BSG --Resume metformin Disposition Discharge to home Follow-up with primary care physician in 1 week Repeat EGD in 3 months for reevaluation care of [facility] Amor of [facility] Plan of care discussed with patient in detail and at length All questions were answered She is understanding, agreeable, comfortable with plan of care Admission and Anticipated Discharge Date Admission Date: September 16, 2019 Subjective Follow-up for upper GI bleed Seen resting in bed, comfortable, not in distress, in good spirits, oriented x3 States she feels much better overall Denies abdominal pain, nausea vomiting Has mild melena this morning, but no hematochezia Ambulated in the hallways today with no problems except for mild flushing Denied dizziness, lightheadedness, chest pain, shortness of breath No other symptoms States she feels stronger today States she is ready and would like to be discharged today Review of Systems 2 Review of Systems: All systems reviewed & are unremarkable except as noted in HPI & below Physical Exam Physical Exam: General- oriented x 3, not in distress, speaks in sentences with no effort or accessory muscle use Eyes- anicteric Neck- no JVD Lungs- clear breath sounds, no crackles, no wheezing bilaterally Heart- normal rate, regular rhythm; no murmurs Abdomen- normal bowel sounds, nondistended, soft, nontender Extremities- no pretibial edema, no calf tenderness Neuro- alert, oriented x 3; no gross focal neurologic deficits Skin- warm & dry Results & Data Results & Data ([facility]) Vital Signs (Past 12 Hours) Vital Signs Temp Pulse Pulse Resp BP Pulse Ox Pulse Ox 09/18/19 15:33 36.2 C L 76 18 121/66 98 09/18/19 15:17 71 09/18/19 11:43 63 09/18/19 11:36 96 09/18/19 11:18 36.6 C 68 20 124/66 99 09/18/19 07:04 36.8 C 72 20 112/65 96 Laboratory Results Laboratory Results - last 24 hr 09/17/19 09/17/19 09/18/19 18:05 20:18 06:53 WBC 6.99 RBC 3.00 L Hgb 9.7 L 9.0 L Hct 27.1 L MCV 90.3 MCH 30.0 MCHC 33.2 RDW Std Deviation 49.1 H RDW Coeff of Michael 15.1 H Plt Count 147 MPV 11.4 H Immature Gran % (Auto) 0.3 Neut % (Auto) 55.6 Lymph % (Auto) 29.5 [place] % (Auto) 7.6 Eos % (Auto) 6.6 Baso % (Auto) 0.4 Neut # (Auto) 3.89 Lymph # (Auto) 2.06 [place] # (Auto) 0.53 Eos # (Auto) 0.46 Baso # (Auto) 0.03 Immature Gran # (Auto) 0.02 Sodium Potassium Chloride Carbon Dioxide Anion Gap BUN Creatinine Est Cr Clr Drug Dosing Est GFR ( Amer) Est GFR (Non-Af Amer) BUN/Creatinine Ratio Glucose POC Glucose 137 H Calcium 09/18/19 09/18/19 09/18/19 06:53 07:38 11:34 WBC RBC Hgb Hct MCV MCH MCHC RDW Std Deviation RDW Coeff of Michael Plt Count MPV Immature Gran % (Auto) Neut % (Auto) Lymph % (Auto) [place] % (Auto) Eos % (Auto) Baso % (Auto) Neut # (Auto) Lymph # (Auto) [place] # (Auto) Eos # (Auto) Baso # (Auto) Immature Gran # (Auto) Sodium 141 Potassium 4.0 Chloride 111 H Carbon Dioxide 26 Anion Gap 4.0 BUN 20 H Creatinine 0.95 Est Cr Clr Drug Dosing 62.7 Est GFR ( Amer) 69.8 Est GFR (Non-Af Amer) 60.3 BUN/Creatinine Ratio 21.5 H Glucose 94 POC Glucose 121 H 161 H Calcium 8.3 L (1) Hypotension Hypotension type: unspecified hypotension type Qualified Code(s): I95.9 - Hypotension, unspecified
--- NOTE | 2019-09-18 17:10 | Discharge Summary ---
Date of Service September 18, 2019 Admission HPI Per Admitting Provider History obtained from patient and records. Medical history significant for hypertension, hyperlipidemia, A. fib on Eliquis, DM 2 on oral meds, osteoarthritis, basal cell carcinoma status post surgery. Yesterday morning patient woke up not feeling well. Dizziness described as lightheadedness. No headache. Achy abdominal discomfort with right kidney pain. Stools noted to be melanotic. No hematemesis, no unusual weight loss. Dysuria symptoms along with dark urine. Patient denies chest pain, S OB, cough. Denies recent COVID-19 contacts. Daily naproxen intake in a.m. with food for arthritis. Patient brought to the ER for evaluation. IV Protonix bolus/infusion initiated at the ER. Hemoglobin noted to be 7.2. 1 unit packed RBC transfusion initiated at the ER. Medical History as above Surgical History : Skin cancer surgery, section, cholecystectomy, hysterectomy, knee surgery Family History : Colon cancer, heart disease, diabetes Personal/Social history : Non-smoker, occasional EtOH intake, retired from work as a [employer] Admission Exam Per Admitting Provider GENERAL: uncomfortable, anxious, no respiratory distress SKIN: Pallor , warm HEENT: Bespectacled, pale palpebral conjunctivae, no ptosis, dry buccal mucosa NECK : Supple, no tenderness CHEST : CTA, no tenderness HEART : Irregular, tachycardic, no obvious murmurs ABDOMEN: Some distention, minimal epigastric tenderness EXTREMITIES : Chronic LE swelling (R>L), no LE tenderness, no other conspicuous deformities noted NEUROLOGIC : Coherent, no facial asymmetry, no other gross focality Principal Diagnosis Upper GI bleed secondary to gastric ulcers, in the setting of Eliquis and naproxen use; Acute blood loss anemia Discharge Exam General- oriented x 3, not in distress, speaks in sentences with no effort or accessory muscle use Eyes- anicteric Neck- no JVD Lungs- clear breath sounds, no crackles, no wheezing bilaterally Heart- normal rate, regular rhythm; no murmurs Abdomen- normal bowel sounds, nondistended, soft, nontender Extremities- no pretibial edema, no calf tenderness Neuro- alert, oriented x 3; no gross focal neurologic deficits Skin- warm & dry Discharge Data Allergies Allergy/AdvReac Type Severity Reaction Status Date / Time No Known Allergies Allergy Unverified 09/15/19 22:55 Consultations 09/15/19 22:49 ED Decision to Admit Stat 09/16/19 01:57 Consult Gastroenterology Routine Procedures Performed Operation Date: 09/17/19 14:50 Actual Procedures p EGD Biopsy Cytology - Pietro Amor MD Procedure: Pre-Anesthesia Assessment: - Prior Anticoagulants: The patient has taken Eliquis (apixaban), last dose was 3 days prior to procedure. - ASA Grade Assessment: III - A patient with severe systemic disease. After obtaining informed consent, the endoscope was passed under direct vision. Throughout the procedure, the patient's blood pressure, pulse, and oxygen saturations were monitored continuously. The Endoscope was introduced through the mouth, and advanced to the second part of duodenum. The upper GI endoscopy was accomplished without difficulty. The patient tolerated the procedure well. Findings: The examined esophagus was normal. Few cratered, clean based gastric ulcers were found in the gastric antrum, one of which was very large. Biopsies were taken with a cold forceps for Helicobacter pylori testing. Estimated blood loss: none. The duodenal bulb and second portion of the duodenum were normal. Impression: - Normal esophagus. - Gastric ulcers. Biopsied. likely source of her anemia. - Normal duodenal bulb and second portion of the duodenum. Recommendation: - Return patient to [facility] for ongoing care. - Advance diet as tolerated today. - Await pathology results. protonix 40 mg BID for 3 months EGD in 3 months to reassess Ordered Studies 09/16/19 00:12 CT abd pelvis wo con Urgent FINDINGS: Lung bases are clear. Liver spleen and pancreas are unremarkable. Prior cholecystectomy. Mild cortical scarring of the kidneys with no evidence for hydronephrosis. Nonobstructive bowel pattern. Bladder is midline. No free fluid within the pelvic cul-de-sac. Prior hysterectomy. IMPRESSION: No acute process post cholecystectomy and hysterectomy. Hospital Course (1) Acute GI bleeding: Upper GI Bleed secondary to Gastric Ulcers, in the setting of Eliquis and Naproxen use -- s/p 3 units pRBC Hg 7 improved to 9.0 --Status post EGD 09/17/[address] Amor Impression: - Normal esophagus. - Gastric ulcers. Biopsied. likely source of her anemia. - Normal duodenal bulb and second portion of the duodenum. Pathology: - GASTRIC MUCOSA WITH MILD CHRONIC INFLAMMATION AND REACTIVE CHANGES - NEGATIVE FOR INTESTINAL METAPLASIA, DYSPLASIA AND MALIGNANCY NEGATIVE FOR HELICOBACTER PYLORI ORGANISMS --Patient placed on Protonix drip, transition to p.o. Protonix Eliquis resumed, hemoglobin remained stable around 9 --GI recommendations: Protonix 40 mg twice a day for 3 months Repeat EGD in 3 months for reevaluation care of [facility] Amor of [facility] [address] group Stop naproxen --Follow-up with PCP in 1 week Repeat hemoglobin during follow-up with PCP in 1 week SIRS plus lactic acidosis plus acute renal failure, sepsis ruled out -- Patient remained afebrile WBC improved from 18 to 12 -- urine culture negative blood culture negative --IV cefepime discontinued Acute blood loss anemia anemia secondary to UGIB, -- management per #1 Hemoglobin 9 on discharge day after 3 units of packed RBCs Monitor as an outpatient Carla mckeon -- HR improved Resume usual atenolol and Eliquis Hypertension -- atenolol reduced to 25mg daily to prevent hypotension Blood pressure and heart rate stable, resume usual dose of atenolol 50 mg daily Hold valsartan/hydrochlorothiazide to prevent hypotension and dehydration, re-evaluate on follow-up with PCP Hyperlipidemia --on statin Rx DM 2 --Resume metformin Disposition Discharge to home Follow-up with primary care physician in 1 week Repeat EGD in 3 months for reevaluation care of [facility] Amor of [facility] physicians group Plan of care discussed with patient in detail and at length All questions were answered She is understanding, agreeable, comfortable with plan of care Total Time Total Time Spent Total Time Spent (In Minutes): 45 mins Discharge Plan Discharge Items Patient Disposition: Home - Self-Care Reason For Visit: RAPID AF Discharge Diagnosis: Gastrointestinal bleed secondary to stomach ulcers Condition on Discharge: Good Activity: As commented below Activity Comment: Resume activity gradually as tolerated, no heavy exertion Lifting: Wait until after follow-up appointment Exercise/Sports: Wait until after follow-up appointment Driving/Machine Use: No driving until reevaluated and allowed by primary care physician Non-emergency contact: Primary Care Provider Call non-emergency contact if: you have any medication questions, your symptoms worsen and you have a fever Follow-up/Referrals: Pietro Amor MD [Physician] - aSchin Montanez [Primary Care Provider] - Diet: Carb Consistent or DM2, Heart Healthy and Low Fiber Addtl Attending Provider Instructions: Your new medication is Protonix 40 mg twice a day for 3 months-to heal and prevent stomach ulcers. Do not take valsartan/hydrochlorothiazide for now to prevent low blood pressure. Ask your primary care physician on follow-up visit next week if he can resume this medication. Take your blood pressure daily. If you are having a systolic blood pressure reading (top number) above 140, resume the valsartan/hydrochlorothiazide. Do not take naproxen or any other NSAIDs such as ibuprofen, etc. Follow-up with primary care physician in 1 week. You also need to have blood work-complete blood count during follow-up visit next week. Follow-up with Dr. Pietro Amor, transverse abdominal muscle surgeon-[facility] group, in 2 to 3 weeks. You need to have a repeat upper endoscopy by Dr. Amor in 3 months. Call your primary care physician or return to the ER immediately if with recurrence or persistence of black stools, Blood in your stools, abdominal pain, nausea vomiting, weakness, dizziness, chest pain or shortness of breath. Pending Studies at Discharge: Yes Studies:: Blood work-complete blood count, on your follow-up visit with your primary care physician next week Stand-Alone Forms: My [facility], Smoking Cessation Medications and DC Order Prescriptions: New pantoprazole 40 mg Tablet,Delayed Release (Dr/Ec) 40 mg PO BID Qty: 60 RF: 2 Continued metformin [Glucophage] 500 mg tablet 500 mg PO DAILY RF: 0 simvastatin [Zocor] 20 mg tablet 20 mg PO HS RF: 0 atenolol [Tenormin] 50 mg tablet 50 mg PO DAILY RF: 0 Eliquis 5 mg tablet 5 mg PO BID RF: 0 Discontinued naproxen [Naprosyn] 500 mg tablet 500 mg PO DAILY RF: 0 valsartan-hydrochlorothiazide [Diovan HCT] 160-25 mg tablet 1 tab PO DAILY RF: 0 Discharge Orders: Discharge Order (Routine); Ordered 09/18/19 Ordered By: Donald Torres/Other Patient Handouts: A1C Admission Data Admit Date/Time: 09/16/19 00:15 Attending Provider: Donald Silva Admit Provider: Slim Raya Primary Care Provider: Sachin Montanez Other Providers: Slim Raya ; Pietro Amor Other Interventions: Discharge Summary Assessment (RN) Last Done: 09/18/19 16:58
== END 2019-09-18 17:28 | disposition home or self-care (01) | DRG 811 ==
LOC: ED 21:44 → 2S 09-16 00:15 → SUATTDRO 09-16 00:15 → 2S 09-16 00:46 → 2N 09-17 12:21

== ENCOUNTER 2024-03-10 02:47 | Inpatient (IN) ==
[2024-03-10] MEDS ORDERED: STAT IV Infusion **Titration per Protocol STA (02:59)
[2024-03-10] MEDS ORDERED: GLUCOSE 40% GEL 15 GM TUBE PO PRN (02:59)
[2024-03-10] MEDS ORDERED: DEXTROSE 50% 50 ML SYRINGE IV PRN (02:59)
[2024-03-10] MEDS ORDERED: GLUCAGON FOR INJ 1 MG VIAL SQ PRN (02:59)
[2024-03-10] MEDS ORDERED: ALBUT/IPRATROP 3MG/0.5MG NEB 3 ML VIAL INH PRN (02:59)
[2024-03-10] MEDS ORDERED: CARBOHYDRATES FOR HYPOGLYCEMIA PO PRN (02:59)
[2024-03-10] MEDS ORDERED: GLUCOSE 10 TAB/TUBE PO PRN (02:59)
[2024-03-10 04:07] LABS: iSTAT Allen Test Fail; iSTAT Art Bld Gas pCO2 Correct 22 mmHg (35-46); iSTAT Art Bld Gas pH Corrected 7.433 (7.35-7.45); iSTAT Arterial Blood Gas HCO3 15 meg/L (19-24); iSTAT Arterial Blood Gas pCO2 22 mmHg (35-46); iSTAT Arterial Blood Gas pH 7.44 (7.35-7.45); iSTAT Arterial Blood Gas pO2 177 mmHg (80-95); iSTAT Arterial Blood Gas pO2 C 179; iSTAT Carbon Dioxide 15 mmol/L (24-31); iSTAT FiO2 50 %; iSTAT Hematocrit 32 % (37-47); iSTAT Hemoglobin 10.9 g/dl (12.0-16.0); iSTAT Potassium 3.8 mmol/L (3.3-5.0); iSTAT Sample Type Arterial; iSTAT Site L Radial; iSTAT Sodium 134 mmol/L (135-144); iSTAT SpO2 99
--- NOTE | 2024-03-10 04:28 | Critical Care Consultation ---
Date of Consultation March 10, 2024 Assessment & Plan (1) NSTEMI (non-ST elevated myocardial infarction): Impression: 68 with past medical history of A-fib RVR (on Eliquis), DM type II, HLD, HTN, GERD presents to the ICU as a direct transfer from outside hospital emergency department, where she was undergoing treatment for A-fib RVR with hypoxic respiratory failure requiring BiPAP and Cardizem drip and was also found to have elevated troponin and placed on heparin drip. Neuro - [facility] ICU: Negative Cardiac - A-fib RVRpatient with history of A-fib currently anticoagulated with Eliquis. Last dose she claims was taken yesterday morning -Presented to outside hospital emergency department with heart rate in the 140s and respiratory distress. Was placed on Cardizem drip. Currently rate controlled and Cardizem weaned off - Would recommend restarting beta-terry - IV heparin in favor of Eliquis considering NSTEMI -Continuous monitoring. NSTEMIinitially thought to be related to demand ischemia considering tachycardia with A-fib RVR and hypoxia. Although patient currently rate control led with normal oxygen saturations range, continues to have ST depressions in precordial leads - Will restart heparin drip as the last dose of Eliquis was nearly 24 hours ago -Cardiology consulted -Troponins pending -Follow-up TTE HLDcontinue statin Respiratory - Hypoxiasuspect this is likely congestion failure related to A-fib RVR/heart failure. Cannot rule out underlying pneumonia although patient is currently afebrile. - Chest x-ray more consistent with pulmonary congestion. Lab work currently pending. - No longer requiring BiPAP as patient had PaO2 of 190, and CO2 of 22. Swi tch to nasal cannula for now. C -continuous monitoring with pulse ox. No respiratory distress on exam. Will hold off on diuresis for now GI - N.p.o. for now GERDPPI RENAL/LYTES - No history of renal disease. BMP currently pending. Maximize electrolytes. Will hold on diuresis for now - Foleystrict I's and O's ENDO - DM type IIhold metformin in favor of sliding scale. ICU hyperglycemic protocol HEME - CBC currently pending. Follow-up H&H ID - Chest x-ray at outside ER reported to be consistent with multifocal pneumonia, although repeat image on arrival shows mild vascular congestion. Currently afebrile. WBC currently pending. Will hold off on antibiotics for now. Trend fever curve LINES/IV ACCESS - Peripheral IVs DVT PROPHYLAXIS - SCDs, heparin drip Disposition: Patient stable for downgrade from ICU care at this time. Please let us know if further critical care assistance is needed Thank you for allowing us to participate in the care of this patient. Please refer to my attending physician's documentation for any further recommendations. (2) Atrial fibrillation with RVR: (3) Hypoxia: (4) Diabetes: (5) Hypertension: (6) Hyperlipidemia: History of Present Illness Attending Physician: Jose Macedo MD History of Present Illness Patient is a 73-year-old female with past medical history of A-fib (on Eliquis), GERD, DM type II, HTN, HLD, DVT who presented to the emergency department at [facility] after a fall at home. Patient states that she fell to the floor without sustaining any significant injury but could not get up afterwards and EMS arrived to the patient's home. At that time she was found to be tachycardic and hypoxic. She presented to [facility] ER and underwent CTA chest which was negative for PE, CT head, C-spine, and CT abdomen and pelvis as well which were all unremarkable. She was found to be in A-fib RVR and was started on diltiazem drip and was placed on BiPAP as well. She had elevated troponin and was placed on heparin drip. ER physician requested transfer to [facility] and she was excepted in the ICU. On arrival to the ICU the patient is alert and oriented. ABG on arrival shows significant improvement in hypoxia and BiPAP was discontinued. She is no longer requiring diltiazem drip as well and is currently rate controlled and hemodynamically stable. She was noted to have ST depression in precordial leads V2 to V4, and low dose heparin drip was restarted as she states that she did not take her medications last evening. Upon evaluation patient denies headache, dizziness, syncopal event, changes in vision, numbness or tingling. Patient states that she ambulates with a walker or cane at home. She states that she fell on her bottom but could not get back up even with assistance because her legs are weak. She denies any chest pain or palpitations, abdominal pain, nausea vomiting or diarrhea, swelling in hands or feet. She denies recent illness or fevers but states that she did have a mild cough with phlegm 2 days ago but did not have a sore throat. She reports shortness of breath earlier which has improved. Lab work is currently pending. Patient likely benefit from cardiology consult as she does have EKG changes with ST depression and had elevated Trope at emergency department. She was currently placed on heparin drip for NSTEMI. Patient appears to be hemodynamically stable no longer requiring vasoactive drips or BiPAP and at this time could likely downgrade from ICU. Allergies Allergy/AdvReac Type Severity Reaction Status Date / Time No Known Allergies Allergy Unverified 09/15/19 22:55 Home Medications Medication Instructions Recorded Confirmed Type apixaban 5 mg tablet (Eliquis) 5 mg PO BID 09/15/19 09/15/19 History atenolol 50 mg tablet (Tenormin) 50 mg PO DAILY 09/15/19 09/15/19 History metformin 500 mg tablet 500 mg PO DAILY 09/15/19 09/15/19 History (Glucophage) simvastatin 20 mg tablet (Zocor) 20 mg PO HS 09/15/19 09/15/19 History pantoprazole 40 mg tablet,delayed 40 mg PO BID #60 tabs 09/18/19 Rx release Patient History Social History Smoking Status: Never smoker Hx Alcohol Use: Yes Alcohol type: wine Hx Substance Use: No Preferred Language: Serbian Communication Ability: Effective 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 Beliefs That Will Affect Care: None Current Living Situation: Family Current Living Situation Comment: lives with daughter Feels Safe at Home: Yes Assistive Devices: Denture - Upper, Denture - Lower and Glasses Review of Systems Review of Systems: All systems reviewed & are unremarkable except as noted in HPI & below Physical Exam Constitutional: cooperative and comfortable Eyes: PERRL, conjunctivae normal, anicteric sclerae ENMT: external ear and nose normal, oropharynx normal Neck: trachea midline, no thyromegaly Respiratory: normal respiratory effort, lungs clear to auscultation Cardiovascular: Rate/Rhythm: + irregularly irregular Heart Sounds: no murmur Vessels: no JVD Extremities: no edema Gastrointestinal (Abdomen): normal bowel sounds, soft, nontender, no hepatosplenomegaly Musculoskeletal: no cyanosis or clubbing, extremities motor strength 5/5 Skin: no rashes, warm and dry Neurologic: PERRL, EOMI, accommodation nl, no face palsy, no dysarthria Psychiatric: A+Ox3, euthymic affect Results & Data Results & Data Vital Signs (Past 12 Hours) Vital Signs Pulse Resp Pulse Ox FiO2 03/10/24 03:45 90 23 99 50 Coding Level of Care Code 96064 IN/OBS CONSULT LVL 3,45M Diagnoses NSTEMI (non-ST elevated myocardial infarction) I21.4 Atrial fibrillation with RVR I48.91 Hypoxia R09.02 Diabetes E11.9 Hypertension I10 Hyperlipidemia E78.5 Time Spent (min) 54
[2024-03-10 04:32] LABS: Hematocrit (blood only) 33.4 % (37.0-47.0); Hemoglobin 10.4 g/dl (12.0-16.0); Mean Corpuscular Hemoglobin 25.4 pg (25.0-34.0); Mean Corpuscular Hgb Conc 31.1 g/dL (32.0-36.0); Mean Corpuscular Volume 81.7 fL (80.0-100.0); Mean Platelet Volume 11.6 fL (9.4-12.4); Platelet Count 190 K/uL (130-400); RDW Coefficient of Variation 15.3 % (11.5-14.5); RDW Standard Deviation 45.4 fL (36.4-46.3); Red Blood Count 4.09 M/uL (4.20-5.40); White Blood Count 21.66 K/ul (4.8-10.8)
[2024-03-10 04:54] LABS: Basophils # (auto) 0.03 K/uL (0.00-0.20); Basophils % (auto) 0.1 %; Immature Granulocytes % (auto) 0.9 %; Lymphocytes # (auto) 1.05 K/uL (1.20-3.40); Lymphocytes % (auto) 4.8 %; Monocytes # (auto) 0.87 K/uL (0.11-0.59); Neutrophils # (auto) 19.51 K/uL (1.40-6.50); Neutrophils % (auto) 90.2 %; Polychromasia 1+
[2024-03-10 05:08] LABS: Albumin Level 3.9 gm/dl (3.4-5.0); Bilirubin Direct 0.6 mg/dl (0-0.2); Bilirubin,Total 1.1 mg/dl (0.2-1.0); Calcium 8.9 mg/dl (8.6-10.3); Creatinine Clr Calc Pharmacy 38.3 ml/min; Magnesium 2.1 mg/dl (1.7-2.4); Phosphorus 4.2 mg/dl (2.5-4.9); Potassium 4.2 mmol/L (3.5-5.1); Total Protein 6.6 gm/dl (6.0-8.3); Troponin I High Sensitivity 6790.1 pg/ml (0-14)
[2024-03-10 05:09] LABS: INR 1.2 (0.9-1.1); Partial Thromboplastin Ratio 1.3; Partial Thromboplastin Time 36 Seconds (21-31); Prothrombin Time 12.7 Seconds (9.0-12.0)
[2024-03-10] MEDS: HEPARIN SODIUM/DEXTROSE 25,000 UNITS/500 ML BAG IV SCH (05:16)
[2024-03-10] MEDS: Heparin IV Adult Wt-Based Low-Dose *NO* INITIAL Bolus Protocol IV STA (05:18)
--- NOTE | 2024-03-10 05:21 | History & Physical Report ---
Date of Service March 10, 2024 Assessment & Plan (1) Atrial fibrillation with RVR: (2) NSTEMI (non-ST elevated myocardial infarction): (3) Hypoxia: (4) Hyperlipidemia: (5) Diabetes: Plan Atrial fibrillation with RVR/NSTEMI- Patient chronically on Eliquis, with last dosing the morning of 03/09. She had received a heparin bolus and drip from [facility] prior to transfer, which will be continued EKG shows rate controlled atrial fibrillation with lateral ST depressions, more prevalent in leads V4 through V6, but will also 1, aVL and V3 The patient will be admitted to telemetry for serial cardiac enzymes, serial EKG's, cardiac rhythm monitoring and a 2-D echocardiogram with Dopplers. Troponin now on arrival 6790.1 Consult cardiology Aspirin 81 mg Change atenolol 50 mg daily to metoprolol to tartrate 12.5 mg p.o. twice daily Stop diltiazem drip Hyperlipidemia- Presently on simvastatin 20 mg daily, will change to rosuvastatin 20 mg daily for high intensity statin Check a fasting lipid panel Diabetes mellitus- Hold metformin Placed on Accu-Cheks with NovoLog SSI Check hemoglobin A1c Hypomagnesemia- Magnesium was 1.3 upon transfer, which she received 2 g magnesium sulfate IV prior to transfer Magnesium 2.1 on admission to [facility] History of peptic ulcer disease and GI bleeding- Continue pantoprazole 40 mg, but changed to IV Admission and Anticipated Discharge Date Admission Date: March 10, 2024 History of Present Illness Chief Complaint: The patient was accepted as a transfer from [facility], after having a ground-level fall, and when family was unable to pick her up, she was brought to [facility] emergency department for assessment. When she arrived there, she was found to be in atrial fibrillation with RVR the rate of about 1 40-1 50, and pulse ox was recorded at low 80% in room air, and up to 87% on 5 L nasal cannula. She was then changed to BiPAP 10/5 50%, and reportedly had a pulse ox into the low 90s. She received Cardizem 10 mg IV, and then started a Cardizem drip at 5 mg/h, with resultant heart rate decreased to 80-90, and blood pressure 135 systolic. Due to insufficient support services there, [facility] was called, and patient was transferred for ongoing care. Primary Care Provider: Sachin Montanez The patient is a 73-year-old female with a past medical history including atrial fibrillation, diabetes mellitus, hypertension, closed sacral fracture, anemia, history of acute GI bleeding secondary to peptic ulcer disease. She presented to the emergency department at [facility] initially as noted above, and then was transferred to [facility] ICU for ongoing care. Prior to transfer patient did have troponin of 700, which was reportedly then increased to 5500. She had been taking Eliquis, with the last dose the morning of 03/09, and was then placed on a heparin drip after bolus at [facility] before contact for transfer. Upon arrival to the ICU at [facility], patient was able to be removed from BiPAP, had pulse ox in the low 90s on nasal cannula, and routine admission orders were begun. The Cardizem drip was also stopped, and heart rate remained in the 70s to 80s Allergies Allergy/AdvReac Type Severity Reaction Status Date / Time No Known Allergies Allergy Unverified 09/15/19 22:55 Home Medications Medication Instructions Recorded Confirmed Type apixaban 5 mg tablet (Eliquis) 5 mg PO BID 09/15/19 09/15/19 History atenolol 50 mg tablet (Tenormin) 50 mg PO DAILY 09/15/19 09/15/19 History metformin 500 mg tablet 500 mg PO DAILY 09/15/19 09/15/19 History (Glucophage) simvastatin 20 mg tablet (Zocor) 20 mg PO HS 09/15/19 09/15/19 History pantoprazole 40 mg tablet,delayed 40 mg PO BID #60 tabs 09/18/19 Rx release Past Med/Surg History Problem List (Updated 03/10/24 @ 04:35 by ROCIO Tapia) Hypoxia Hyperlipidemia NSTEMI (non-ST elevated myocardial infarction) Atrial fibrillation with RVR Peptic ulcer disease Acute GI bleeding (Acute) Anemia (Acute) Hypotension (Acute) A-fib (Acute) Diabetes Hypertension Status post right knee replacement Closed sacral fracture (Acute) Social History Smoking Status: Never smoker Second Hand Exposure: No; Do You Dip or Chew Tobacco: No; Tobacco Cessation Education Requested by Patient: No Hx Alcohol Use: No Hx Substance Use: No Preferred Language: Slovak Communication Ability: Effective Head Rose Grower Required: No Beliefs That Will Affect Care: None Current Living Situation: Family Current Living Situation Comment: lives with daughter Other Information That Helps Us Care for You: No Feels Safe at Home: Yes Safety Concerns: Feels Safe At This Time Assistive Devices: Cane, Denture - Upper, Denture - Lower, Glasses, Lift Chair and Walker Review of Systems Review of Systems: The patient denies chest pain, palpitations, cough, lower extremity swelling, sore throat, fevers, chills, sweats, nausea, vomiting, diarrhea , constipation, abdominal pain, pelvic pain, blood in urine or stool, dysuria, urinary frequency or urgency, lightheadedness, dizziness, headache, memory loss, loss of consciousness, rash, abnormal bruising or bleeding, focal or generalized weakness, numbness or tingling in arms or legs, generalized arthralgias or myalgias, back or neck pain, or night sweats. The review of systems is otherwise negative other than for that already noted above, and at least 10 systems have been reviewed. Physical Exam Physical Exam: The patient is awake, alert and oriented 3, well developed and well nourished, normocephalic and atraumatic, lying in bed and in no acute distress. HEENT--PERRL, EOMI, mucous membranes and oropharynx moderately dry. Neck--supple. No JVD. No bruits. Thyroid normal, trachea midline, no adenopathy. Heart--irregularly irregular with rate control. No murmurs, rubs or gallops. Lungs--clear bilaterally, no respiratory distress, no accessory muscle use. Abdomen--normal bowel sounds and soft. Nontender. Nondistended, no hernias or masses, no organomegaly. Extremities--no cyanosis or clubbing. No edema. There are good distal pulses b/l. Dermatologic-skin of lower extremities very xerotic, and heel protectors are in place Neurologic--cranial nerves II through XII grossly intact. Rheumatologic--normal range of motion. Psychiatric--normal affect. Results & Data Results & Data Vital Signs (Past 12 Hours) Vital Signs Temp Pulse Pulse Resp BP BP Pulse Ox 03/10/24 04:36 81 26 H 95 03/10/24 04:30 116/80 12/14/24 04:21 83 21 97 03/10/24 04:12 86 22 98 03/10/24 04:02 125/92 03/10/24 04:02 125/92 03/10/24 04:02 125/92 03/10/24 04:00 73 22 03/10/24 03:57 120/60 03/10/24 03:57 120/60 03/10/24 03:45 90 23 99 03/10/24 02:54 87 03/10/24 02:54 37.2 C 82 20 129/70 97 03/10/24 02:54 03/10/24 02:54 37.2 C 82 20 129/70 97 O2 Del Method O2 Flow Rate FiO2 03/10/24 04:36 03/10/24 04:30 03/10/24 04:21 03/10/24 04:12 03/10/24 04:02 03/10/24 04:02 03/10/24 04:02 03/10/24 04:00 03/10/24 03:57 03/10/24 03:57 03/10/24 03:45 50 03/10/24 02:54 03/10/24 02:54 Nasal Cannula 2 03/10/24 02:54 Nasal Cannula 2 03/10/24 02:54 Nasal Cannula 2 Laboratory Results Laboratory Results WBC 21.66 K/ul (4.8-10.8) H 03/10/24 04:15 RBC 4.09 M/uL (4.20-5.40) L 03/10/24 04:15 Hgb 10.4 g/dl (12.0-16.0) L 03/10/24 04:15 POC Hgb 10.9 g/dl (12.0-16.0) L 03/10/24 03:53 Hct 33.4 % (37.0-47.0) L 03/10/24 04:15 POC Hct 32 % (37-47) L 03/10/24 03:53 MCV 81.7 fL (80.0-100.0) 03/10/24 04:15 MCH 25.4 pg (25.0-34.0) 03/10/24 04:15 MCHC 31.1 g/dL (32.0-36.0) L 03/10/24 04:15 RDW Std Deviation 45.4 fL (36.4-46.3) 03/10/24 04:15 RDW Coeff of Michael 15.3 % (11.5-14.5) H 03/10/24 04:15 Plt Count 190 K/uL (130-400) 03/10/24 04:15 MPV 11.6 fL (9.4-12.4) 03/10/24 04:15 Immature Gran % (Auto) 0.9 % 03/10/24 04:15 Neut % (Auto) 90.2 % 03/10/24 04:15 Lymph % (Auto) 4.8 % 03/10/24 04:15 [place] % (Auto) 4.0 % 03/10/24 04:15 Eos % (Auto) 0.0 % 03/10/24 04:15 Baso % (Auto) 0.1 % 03/10/24 04:15 Neut # (Auto) 19.51 K/uL (1.40-6.50) H 03/10/24 04:15 Lymph # (Auto) 1.05 K/uL (1.20-3.40) L 03/10/24 04:15 [place] # (Auto) 0.87 K/uL (0.11-0.59) H 03/10/24 04:15 Eos # (Auto) 0.00 K/uL (0.00-0.50) 03/10/24 04:15 Baso # (Auto) 0.03 K/uL (0.00-0.20) 03/10/24 04:15 Immature Gran # (Auto) 0.20 K/uL (0.01-0.20) 03/10/24 04:15 Polychromasia 1+ 03/10/24 04:15 PT 12.7 Seconds (9.0-12.0) H 03/10/24 04:15 INR 1.2 (0.9-1.1) H 03/10/24 04:15 APTT 36 Seconds (21-31) H 03/10/24 04:15 PTT Ratio 1.3 03/10/24 04:15 Specimen Type Arterial 03/10/24 03:53 Sample Site L Radial 03/10/24 03:53 POC pH 7.44 (7.35-7.45) 03/10/24 03:53 POC pCO2 22 mmHg (35-46) L 03/10/24 03:53 POC pO2 177 mmHg (80-95) H 03/10/24 03:53 POC HCO3 15 saurabh/L (19-24) L 03/10/24 03:53 POC Total CO2 15 mmol/L (24-31) L 03/10/24 03:53 POC Base Excess -9.0 saurabh/L (-9-1.8) 03/10/24 03:53 O2 Sat Pulse Oximetry 99 03/10/24 03:53 ABG pH (Temp Correct) 7.433 (7.35-7.45) 03/10/24 03:53 ABG pCO2 (Temp Corrct 22 mmHg (35-46) L 03/10/24 03:53 POC ABG pO2 at Pt Temp 179 03/10/24 03:53 POC ABG O2 Sat 100.0 % (90-95) H 03/10/24 03:53 Ricardo Test Fail 03/10/24 03:53 O2 Delivery Device BIPAP 03/10/24 03:53 POC FiO2 50 % 03/10/24 03:53 EPAP 5 03/10/24 03:53 IPAP 10 03/10/24 03:53 POC Sodium 134 mmol/L (135-144) L 03/10/24 03:53 Sodium 135 mmol/L (136-145) L 03/10/24 04:15 POC Potassium 3.8 mmol/L (3.3-5.0) 03/10/24 03:53 Potassium 4.2 mmol/L (3.5-5.1) 03/10/24 04:15 Chloride 103 mmol/L (98-107) 03/10/24 04:15 Carbon Dioxide 18 mmol/L (21-32) L 03/10/24 04:15 Anion Gap 14 (3-11) H 03/10/24 04:15 BUN 24 mg/dl (6-23) H 03/10/24 04:15 Creatinine 1.50 mg/dl (0.6-1.2) H 03/10/24 04:15 Est Cr Clr Drug Dosing 38.3 ml/min 03/10/24 04:15 eGFR 36.12 03/10/24 04:15 BUN/Creatinine Ratio 16.0 (10-20) 03/10/24 04:15 Glucose 301 mg/dl (70-99(Fasting)) H* 03/10/24 04:15 POC Glucose 298 mg/dl (70-99) H 03/10/24 04:23 Calcium 8.9 mg/dl (8.6-10.3) 03/10/24 04:15 Phosphorus 4.2 mg/dl (2.5-4.9) 03/10/24 04:15 Magnesium 2.1 mg/dl (1.7-2.4) 03/10/24 04:15 Total Bilirubin 1.1 mg/dl (0.2-1.0) H 03/10/24 04:15 Direct Bilirubin 0.6 mg/dl (0-0.2) H 03/10/24 04:15 AST 59 U/L (13-39) H 03/10/24 04:15 ALT 30 U/L (7-52) 03/10/24 04:15 Alkaline Phosphatase 72 U/L (34-104) 03/10/24 04:15 Troponin I High Sens 6790.1 pg/ml (0-14) H* 03/10/24 04:15 Total Protein 6.6 gm/dl (6.0-8.3) 03/10/24 04:15 Albumin 3.9 gm/dl (3.4-5.0) 03/10/24 04:15 Code Status & VTE Plan Code Status Full code VTE Prophylaxis Plan VTE Prophylaxis will be ordered: Yes PG Care Time/CCT Total # of Minutes Spent Total Time Spent with Patient: Total time spent is greater than 50% in coordination of care (as documented) at patient's floor/unit and/or counseling patient: Coding Level of Care Code 66060 INT INP/OBS CARE 3/75MIN Diagnoses Atrial fibrillation with RVR I48.91 NSTEMI (non-ST elevated myocardial infarction) I21.4 Hypoxia R09.02 Hyperlipidemia E78.5 Diabetes E11.9
[2024-03-10] MEDS: dilTIAZem HCL 125 MG in DEXTROSE 5% 100 ML IV SCH (05:22)
--- NOTE | 2024-03-10 05:50 | XRay Report ---
EXAM: XR chest 1V portable CLINICAL HISTORY: HYPOXIA. TECHNIQUE: An X-ray image of the chest is obtained in AP projection. COMPARISON: CR 09/15/2019 FINDINGS: Pulmonary Parenchyma: Congestive both pulmonary nimisha more on the left side No evidence of consolidation, collapse, or focal opacities. No pulmonary nodules are identified. No evidence of pleural effusion or pleural thickening. Heart and Mediastinum: Heart size and shape are normal. No mediastinal widening or masses. No hilar or mediastinal lymphadenopathy. Bony Thorax: Bilateral acromioclavicular osteoarthritic changes Soft Tissues: Soft tissues overlying the chest wall are unremarkable. IMPRESSION: 1. Congestive both pulmonary nimisha more on the left side. New finding. 2. Clinical correlation is advised to assess chronic bronchitis. [facility] ER was called at [phone] at 4:47 AM REFRACTORY WORKER on 03/10/2024, and results were verbally communicated with Eric(ANG). Electronically signed by Nancy Uribe 03-10-2024 05:50 AM
[2024-03-10] MEDS: INSULIN ASPART PER UNIT CHARGE SC SCH ×2 (06:17→17:58)
[2024-03-10] MEDS ORDERED: ICU Protocol for HYPERglycemia SCH (07:30)
[2024-03-10] MEDS: METOPROLOL TARTRATE 25 MG TAB PO SCH (08:19)
[2024-03-10] MEDS: ROSUVASTATIN CALCIUM 20 MG TAB PO SCH (08:20)
[2024-03-10] MEDS ORDERED: PHARMACY GLYCEMIC MGMT CONSULT PRN (09:11)
--- NOTE | 2024-03-10 09:51 | Hospitalist Progress Note ---
Date of Service March 10, 2024 Assessment & Plan (1) Sepsis due to pneumonia: (2) Acute hypoxic respiratory failure: (3) Pneumonia: (4) Atrial fibrillation with RVR: (5) NSTEMI (non-ST elevated myocardial infarction): (6) Hyperlipidemia: (7) Hypertension: (8) Type 2 diabetes mellitus: (9) EDDA (acute kidney injury): Plan 73-year-old female with past medical history of hypertension, hyperlipidemia, atrial fibrillation on anticoagulation with Eliquis, type 2 diabetes mellitus, history of GI bleed secondary to peptic ulcer disease who presented to the emergency department at [facility] after experiencing a ground-level fall at home when family was unable to pick her up and was found to be in A-fib with RVR with rate of 140 250 at [facility]. She was also found to have saturations in the low 80s on room air initially requiring 5 L of nasal cannula and then was switched to BiPAP and was started on Cardizem drip and given IV Zosyn for multifocal pneumonia and was found to have elevated troponin of 700, was started on heparin infusion and transferred to [facility] #Acute hypoxic respiratory failure Likely multifocal: From multifocal pneumonia, sepsis from pneumonia and NSTEMI Patient is now on 2 L of oxygen via nasal cannula and no longer requiring BiPAP #Sepsis likely secondary to multifocal pneumonia, present on admission Patient with elevated white count, elevated lactic acid levels, procalcitonin of 15 and EDDA with CTA at [facility] showing multifocal pneumonia Blood cultures sent from [facility]: Results pending Send repeat blood cultures Patient received IV Zosyn at [facility] Switch to IV ceftriaxone plus IV doxycycline Check urine analysis and urine culture Patient received IV fluid bolus at [facility] ED Given EDDA and NSTEMI: Will be gentle with fluid and give 500 mL bolus of IV Plasma-Lyte Monitor lactate levels and white count #NSTEMI #Atrial fibrillation with RVR #Essential hypertension #Hyperlipidemia Eliquis has been switched to IV heparin infusion on admission Continue IV heparin infusion Troponin at [facility] noted at 700, current troponin is 6790: Troponin is rising, patient without any chest pain or EKG changes Check serial troponins until peaks Check 2D echo Continue aspirin plus statin Check fasting lipid in a.m. Atenolol has been stopped and patient switched to metoprolol 12.5 mg p.o. twice daily She is currently rate controlled and Cardizem drip has been stopped Increase metoprolol to 25 mg p.o. twice daily for rate control Patient is currently n.p.o., awaiting cardiology consult and recommendations to see if she is going to have cardiac cath today #Type 2 diabetes mellitus Metformin held for now Check A1c Check B12 Pharmacy consult for glycemic control in this critically ill patient #EDDA #Hypomagnesemia EDDA likely in the setting of sepsis Patient to be given 500 mL bolus x 1 dose of IV Plasma-Lyte Monitor renal function and electrolytes Avoid nephrotoxic agents including NSAIDs Replace electrolytes as needed #History of GI bleeding secondary to peptic ulcer disease Continue Protonix #Ground-level fall CT of head at [facility] is negative for acute intracranial abnormality CT cervical spine at [facility] shows multilevel cervical spondylosis, negative for acute fracture or dislocation CT abdomen plus pelvis with contrast shows negative for acute intra-abdominal pathology PT/OT consults CODE STATUS: Discussed with patient: Patient has advanced directives. Wishes to be DNR/DNI. She is okay with treatment for sepsis, pneumonia and MRI but does not want any resuscitation or intubation and mechanical ventilation. Patient has decision-making capacity DVT prophylaxis: Patient on heparin infusion Care plan discussed with patient, nursing staff Admission and Anticipated Discharge Date Admission Date: March 10, 2024 Subjective Patient seen and examined H&P reviewed Labs reviewed Radiology reviewed Radiology from [facility] also reviewed Telemetry reviewed: Rate controlled atrial fibrillation Patient denies any cough, fever, chills, nausea, vomiting, diarrhea, abdominal pain. She denies any chest pain. Patient does not recall ever being told she has kidney issues. She tells me she is on apixaban at home and is compliant with her medication. Social history: She lives at home with her daughter. She uses a cane, walker to ambulate. She denies tobacco use or alcohol use. Physical Exam Physical Exam: General: No acute distress, talking in full sentences Psych: Awake and alert, oriented to place person and time HEENT: Anicteric sclera, moist oral mucosa CVS: Regular rate and rhythm Lungs: Bilateral air entry with decreased breath sounds at the bases, no wheezing noted Abdomen: Soft, nontender, no rebound, no guarding Ext: No lower extremity edema, no calf tenderness : Radford catheter in place Neuro: No focal motor deficits noted Results & Data Results & Data Vital Signs (Past 12 Hours) Vital Signs Temp Pulse Pulse Resp BP BP Pulse Ox 03/10/24 07:29 36.4 C L 88 18 123/76 98 03/10/24 06:06 87 34 H 96 03/10/24 06:00 114/58 L 03/10/24 06:00 114/58 L 03/10/24 05:51 85 26 H 96 03/10/24 05:45 121/68 03/10/24 05:45 121/68 03/10/24 05:45 84 27 H 03/10/24 05:30 119/79 03/10/24 05:30 119/79 03/10/24 05:30 87 23 88 L 03/10/24 05:24 81 26 H 96 03/10/24 05:15 123/59 L 03/10/24 05:15 123/59 L 03/10/24 05:00 127/57 L 03/10/24 05:00 127/57 L 03/10/24 04:57 85 33 H 94 03/10/24 04:45 128/70 03/10/24 04:36 81 26 H 95 03/10/24 04:30 116/80 03/10/24 04:21 83 21 97 03/10/24 04:12 86 22 98 03/10/24 04:02 125/92 03/10/24 04:02 125/92 03/10/24 04:02 125/92 03/10/24 04:00 73 22 03/10/24 03:57 120/60 03/10/24 03:57 120/60 03/10/24 03:45 90 23 99 03/10/24 02:54 87 03/10/24 02:54 37.2 C 82 20 129/70 97 03/10/24 02:54 03/10/24 02:54 37.2 C 82 20 129/70 97 O2 Del Method O2 Flow Rate FiO2 03/10/24 07:29 Room Air 03/10/24 06:06 03/10/24 06:00 03/10/24 06:00 03/10/24 05:51 03/10/24 05:45 03/10/24 05:45 03/10/24 05:45 03/10/24 05:30 03/10/24 05:30 03/10/24 05:30 03/10/24 05:24 03/10/24 05:15 03/10/24 05:15 03/10/24 05:00 03/10/24 05:00 03/10/24 04:57 03/10/24 04:45 03/10/24 04:36 03/10/24 04:30 03/10/24 04:21 03/10/24 04:12 03/10/24 04:02 03/10/24 04:02 03/10/24 04:02 03/10/24 04:00 03/10/24 03:57 03/10/24 03:57 03/10/24 03:45 50 03/10/24 02:54 03/10/24 02:54 Nasal Cannula 2 03/10/24 02:54 Nasal Cannula 2 03/10/24 02:54 Nasal Cannula 2 Laboratory Results Laboratory Results - last 24 hr 03/10/24 03/10/24 03/10/24 03:53 04:15 04:20 WBC 21.66 H RBC 4.09 L Hgb 10.4 L POC Hgb 10.9 L Hct 33.4 L POC Hct 32 L MCV 81.7 MCH 25.4 MCHC 31.1 L RDW Std Deviation 45.4 RDW Coeff of Michael 15.3 H Plt Count 190 MPV 11.6 Immature Gran % (Auto) 0.9 Neut % (Auto) 90.2 Lymph % (Auto) 4.8 [place] % (Auto) 4.0 Eos % (Auto) 0.0 Baso % (Auto) 0.1 Neut # (Auto) 19.51 H Lymph # (Auto) 1.05 L [place] # (Auto) 0.87 H Eos # (Auto) 0.00 Baso # (Auto) 0.03 Immature Gran # (Auto) 0.20 Polychromasia 1+ PT 12.7 H INR 1.2 H APTT 36 H PTT Ratio 1.3 Specimen Type Arterial Sample Site L Radial POC pH 7.44 POC pCO2 22 L POC pO2 177 H POC HCO3 15 L POC Total CO2 15 L POC Base Excess -9.0 O2 Sat Pulse Oximetry 99 ABG pH (Temp Correct) 7.433 ABG pCO2 (Temp Corrct 22 L POC ABG pO2 at Pt Temp 179 POC ABG O2 Sat 100.0 H Ricardo Test Fail O2 Delivery Device BIPAP POC FiO2 50 EPAP 5 IPAP 10 POC Sodium 134 L Sodium 135 L POC Potassium 3.8 Potassium 4.2 Chloride 103 Carbon Dioxide 18 L Anion Gap 14 H BUN 24 H Creatinine 1.50 H Est Cr Clr Drug Dosing 38.3 eGFR 36.12 BUN/Creatinine Ratio 16.0 Glucose 301 H* POC Glucose Estimat Average Glucose Pending Hemoglobin A1c Pending Lactate Calcium 8.9 Phosphorus 4.2 Magnesium 2.1 Total Bilirubin 1.1 H Direct Bilirubin 0.6 H AST 59 H ALT 30 Alkaline Phosphatase 72 Troponin I High Sens 6790.1 H* B-Natriuretic Peptide 1511 H Total Protein 6.6 Albumin 3.9 Procalcitonin 15.10 H Nasal Screen MRSA (PCR) 03/10/24 03/10/24 03/10/24 04:22 04:23 05:20 WBC RBC Hgb POC Hgb Hct POC Hct MCV MCH MCHC RDW Std Deviation RDW Coeff of Michael Plt Count MPV Immature Gran % (Auto) Neut % (Auto) Lymph % (Auto) [place] % (Auto) Eos % (Auto) Baso % (Auto) Neut # (Auto) Lymph # (Auto) [place] # (Auto) Eos # (Auto) Baso # (Auto) Immature Gran # (Auto) Polychromasia PT INR APTT PTT Ratio Specimen Type Sample Site POC pH POC pCO2 POC pO2 POC HCO3 POC Total CO2 POC Base Excess O2 Sat Pulse Oximetry ABG pH (Temp Correct) ABG pCO2 (Temp Corrct POC ABG pO2 at Pt Temp POC ABG O2 Sat Ricardo Test O2 Delivery Device POC FiO2 EPAP IPAP POC Sodium Sodium POC Potassium Potassium Chloride Carbon Dioxide Anion Gap BUN Creatinine Est Cr Clr Drug Dosing eGFR BUN/Creatinine Ratio Glucose POC Glucose 308 H* 298 H Estimat Average Glucose Hemoglobin A1c Lactate 2.8 H* Calcium Phosphorus Magnesium Total Bilirubin Direct Bilirubin AST ALT Alkaline Phosphatase Troponin I High Sens B-Natriuretic Peptide Total Protein Albumin Procalcitonin Nasal Screen MRSA (PCR) 03/10/24 03/10/24 06:12 Unknown WBC RBC Hgb POC Hgb Hct POC Hct MCV MCH MCHC RDW Std Deviation RDW Coeff of Michael Plt Count MPV Immature Gran % (Auto) Neut % (Auto) Lymph % (Auto) [place] % (Auto) Eos % (Auto) Baso % (Auto) Neut # (Auto) Lymph # (Auto) [place] # (Auto) Eos # (Auto) Baso # (Auto) Immature Gran # (Auto) Polychromasia PT INR APTT PTT Ratio Specimen Type Sample Site POC pH POC pCO2 POC pO2 POC HCO3 POC Total CO2 POC Base Excess O2 Sat Pulse Oximetry ABG pH (Temp Correct) ABG pCO2 (Temp Corrct POC ABG pO2 at Pt Temp POC ABG O2 Sat Ricardo Test O2 Delivery Device POC FiO2 EPAP IPAP POC Sodium Sodium POC Potassium Potassium Chloride Carbon Dioxide Anion Gap BUN Creatinine Est Cr Clr Drug Dosing eGFR BUN/Creatinine Ratio Glucose POC Glucose 260 H Estimat Average Glucose Hemoglobin A1c Lactate Calcium Phosphorus Magnesium Total Bilirubin Direct Bilirubin AST ALT Alkaline Phosphatase Troponin I High Sens B-Natriuretic Peptide Total Protein Albumin Procalcitonin Nasal Screen MRSA (PCR) Negative Diagnostic Findings Chest X-Ray 03/10/24 03:00 EXAM: XR chest 1V portable CLINICAL HISTORY: HYPOXIA. TECHNIQUE: An X-ray image of the chest is obtained in AP projection. COMPARISON: CR 09/15/2019 FINDINGS: Pulmonary Parenchyma: Congestive both pulmonary nimisha more on the left side No evidence of consolidation, collapse, or focal opacities. No pulmonary nodules are identified. No evidence of pleural effusion or pleural thickening. Heart and Mediastinum: Heart size and shape are normal. No mediastinal widening or masses. No hilar or mediastinal lymphadenopathy. Bony Thorax: Bilateral acromioclavicular osteoarthritic changes Soft Tissues: Soft tissues overlying the chest wall are unremarkable. IMPRESSION: 1. Congestive both pulmonary nimisha more on the left side. New finding. 2. Clinical correlation is advised to assess chronic bronchitis. [facility] ER was called at [phone] at 4:47 AM SCRIPT COORDINATOR on 03/10/2024, and results were verbally communicated with Eric(ANG). Electronically signed by Nancy Uribe 03-10-2024 05:50 AM PG Care Time/CCT Total # of Minutes Spent Total Time Spent with Patient: Total time spent is greater than 50% in coordination of care (as documented) at patient's floor/unit and/or counseling patient: Coding Level of Care Code None Diagnoses Sepsis due to pneumonia J18.9; A41.9 Acute hypoxic respiratory failure J96.01 Pneumonia J18.9 Atrial fibrillation with RVR I48.91 NSTEMI (non-ST elevated myocardial infarction) I21.4 Hyperlipidemia E78.5 Hypertension I10 Type 2 diabetes mellitus E11.9 EDDA (acute kidney injury) N17.9
[2024-03-10] MEDS: PANTOprazole 40 MG/10 ML SYR IV SCH (11:20)
[2024-03-10] MEDS: cefTRIAXone SODIUM 2,000 MG/50 ML BAG IV STA (11:20)
[2024-03-10] MEDS: DOXYCYCLINE HYCLATE 100 MG in DEXTROSE 5% MINI-B 100 ML IV STA (11:20)
[2024-03-10 11:32] LABS: BUN Creatinine Ratio 19.4 (10-20); Calcium 8.9 mg/dl (8.6-10.3); Creatinine Clr Calc Pharmacy 41.3 ml/min; Magnesium 2.1 mg/dl (1.7-2.4); Potassium 3.4 mmol/L (3.5-5.1)
--- NOTE | 2024-03-10 11:32 | Cardiology Consultation ---
Date of Consultation March 10, 2024 Assessment & Plan (1) NSTEMI (non-ST elevated myocardial infarction): (2) Atrial fibrillation, permanent: (3) Hypertension: (4) Hyperlipidemia: (5) Mitral regurgitation: (6) Pneumonia: Plan ASSESSMENT/PLAN: 1. NSTEMI: No angina but developed acute respiratory distress and has significantly elevated troponin over 17,000 and climbing. Trend troponin till peaked. Aspirin for now. Recommend cardiac catheterization (nonurgently). Risk and benefits were discussed with her in detail with her daughters at the bedside. They were made aware that CT surgery is not available at this facility. She was agreeable to proceed, likely early next week. Has multiple risk factors for CAD and regional wall motion abnormalities on echo, but preserved LV systolic function. Continue high intensity statin therapy. Continue beta-terry. 2. Hypertension: Blood pressure reasonable. On atenolol 50 mg at home. Can resume home beta-terry or increase metoprolol tartrate as necessary. Can resume ARB as she takes valsartan at home. 3. Dyslipidemia: Continue high intensity statin therapy. 4. Mitral regurgitation: Nonsevere. Can monitor in the outpatient setting. 5. Atrial fibrillation: Permanent. Likely tachycardic initially while in respiratory distress. Heart rate now reasonably controlled. Would resume home dose of beta-terry. Continue anticoagulation for stroke risk reduction. Given that cardiac catheterization is being considered, agree with heparin drip in place of Eliquis for now. 6. Pneumonia: As per primary hospitalist service. Breathing much improved. 7. Disposition: Cardiology will continue to follow. She wishes to follow in the [place] office upon discharge as she anticipates it will be difficult to travel to [place]. Will arrange appointment with Dr. Franklin in the [facility] office. Plan of care communicated with Dr. Teague of the primary hospitalist service. Highly complex medical issues. Thank you for allowing me to participate in the care of your patient. Please call for any other questions or concerns. Sincerely, George Tabor M.D. History of Present Illness Reason for Consultation: NSTEMI Requesting Physician: Dr. Macedo Attending Physician: Luis Teague MD History of Present Illness Ms. Huitron is a very pleasant 73-year-old female with a history significant for atrial fibrillation, peptic ulcer disease with acute GI bleeding (August 2019 and transfused 3 units PRBC; in the setting of Eliquis and naproxen), hypertension, type 2 diabetes, and dyslipidemia. 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 She has permanent atrial fibrillation and has been on Eliquis for years. Eliquis was interrupted during GI bleed in 2019 while she was also using naproxen. She was treated for ulcers after noted on EGD. She was admitted on 03/10/2024 after falling and unable to get up. She was weak in the legs and has been very unstable. She uses a walker for ambulation and a lift chair. She fell in the afternoon on the day prior to presentation after losing her balance. She denies syncope. She has not had any chest discomfort but for the past week has been more short of breath with cough and yellow sputum. She denies fevers or chills, edema, palpitations, melena, hematochezia, or hematuria. Her daughter was present when she fell and she was not on the floor long. They called for EMS and when EMS arrived, she became more acutely short of breath. She was taken to [facility] ER in [place] and her daughter state that while she arrived there, she was even more in distress from a respiratory standpoint. Her oxygen saturation was approximately 80% on room air according to records. She was noted to be in A-fib with RVR and placed on diltiazem drip. She was transferred to [facility] ER. While here, diltiazem drip has since been discontinued. BiPAP was also discontinued. She is feeling much better overall. She believes that her breathing is back to baseline and denies any shortness of breath although she was still on supplemental oxygen at the time of our visit today. According to hospitalist service, she had CT scan done at the outside facility and was diagnosed with pneumonia. Her procalcitonin level was elevated at 15.1. She is now on ceftriaxone. She denies ever being cardioverted for her atrial fibrillation and has been asymptomatic in that regard. Review of systems: As above. Family history: Mother had aortic and mitral valve replacements. Father at 96 with colon cancer. No known premature CAD. Social history: She denies smoking. No significant alcohol use. She lives at home with her daughter, Nazia. She has 2 daughters (Theodora and Nazia). She lives in [place]. Her daughters were present at the bedside. Allergies Allergy/AdvReac Type Severity Reaction Status Date / Time No Known Allergies Allergy Unverified 09/15/19 22:55 Home Medications Medication Instructions Recorded Confirmed Type apixaban 5 mg tablet (Eliquis) 5 mg PO BID 09/15/19 03/10/24 History atenolol 50 mg tablet (Tenormin) 50 mg PO DAILY 09/15/19 03/10/24 History simvastatin 20 mg tablet (Zocor) 20 mg PO HS 09/15/19 03/10/24 History escitalopram oxalate 10 mg tablet 10 mg PO DAILY 03/10/24 03/10/24 History metformin 500 mg tablet 500 mg PO BID 03/10/24 03/10/24 History omeprazole 40 mg capsule,delayed 40 mg PO DAILYBB 03/10/24 03/10/24 History release valsartan 160 1 tab PO DAILY 03/10/24 03/10/24 History mg-hydrochlorothiazide 25 mg tablet Problem List (Updated 03/10/24 @ 17:10 by Lex Tabor MD) Mitral regurgitation Atrial fibrillation, permanent EDDA (acute kidney injury) Type 2 diabetes mellitus Pneumonia Acute hypoxic respiratory failure Sepsis due to pneumonia Hypoxia Hyperlipidemia NSTEMI (non-ST elevated myocardial infarction) Atrial fibrillation with RVR Peptic ulcer disease Acute GI bleeding (Acute) Anemia (Acute) Hypotension (Acute) A-fib (Acute) Diabetes Hypertension Status post right knee replacement Closed sacral fracture (Acute) Patient History Social History Smoking Status: Never smoker Second Hand Exposure: No; Do You Dip or Chew Tobacco: No; Tobacco Cessation Education Requested by Patient: No Hx Alcohol Use: No Hx Substance Use: No Preferred Language: [place] Islander Communication Ability: Effective 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 Alert. HEENT: Anicteric sclera. Neck: No JVD. No bruits. Normal carotid upstrokes bilaterally. Cardiac: Irregularly irregular with normal heart rate. Normal S1-S2. 1/6 systolic murmur. Pulmonary: Clear to auscultation bilaterally without wheezes, rales, or rhonchi. Abdomen: Soft, nontender, nondistended, with normoactive bowel sounds. No bruits noted. Extremities: 2+ radial pulses bilaterally. 2+ posterior tibialis pulses bilaterally. No edema or cyanosis. Results & Data Vital Signs (Past 12 Hours) Vital Signs Temp Pulse Pulse Resp BP BP Pulse Ox 03/10/24 07:29 36.4 C L 88 18 123/76 98 03/10/24 06:06 87 34 H 96 03/10/24 06:00 114/58 L 03/10/24 06:00 114/58 L 03/10/24 05:51 85 26 H 96 03/10/24 05:45 121/68 03/10/24 05:45 121/68 03/10/24 05:45 84 27 H 03/10/24 05:30 119/79 03/10/24 05:30 119/79 03/10/24 05:30 87 23 88 L 03/10/24 05:24 81 26 H 96 03/10/24 05:15 123/59 L 03/10/24 05:15 123/59 L 03/10/24 05:00 127/57 L 03/10/24 05:00 127/57 L 03/10/24 04:57 85 33 H 94 03/10/24 04:45 128/70 03/10/24 04:36 81 26 H 95 03/10/24 04:30 116/80 03/10/24 04:21 83 21 97 03/10/24 04:12 86 22 98 03/10/24 04:02 125/92 03/10/24 04:02 125/92 03/10/24 04:02 125/92 03/10/24 04:00 73 22 03/10/24 03:57 120/60 03/10/24 03:57 120/60 03/10/24 03:45 90 23 99 03/10/24 02:54 87 03/10/24 02:54 37.2 C 82 20 129/70 97 03/10/24 02:54 03/10/24 02:54 37.2 C 82 20 129/70 97 O2 Del Method O2 Flow Rate FiO2 03/10/24 07:29 Room Air 03/10/24 06:06 03/10/24 06:00 03/10/24 06:00 03/10/24 05:51 03/10/24 05:45 03/10/24 05:45 03/10/24 05:45 03/10/24 05:30 03/10/24 05:30 03/10/24 05:30 03/10/24 05:24 03/10/24 05:15 03/10/24 05:15 03/10/24 05:00 03/10/24 05:00 03/10/24 04:57 03/10/24 04:45 03/10/24 04:36 03/10/24 04:30 03/10/24 04:21 03/10/24 04:12 03/10/24 04:02 03/10/24 04:02 03/10/24 04:02 03/10/24 04:00 03/10/24 03:57 03/10/24 03:57 03/10/24 03:45 50 03/10/24 02:54 03/10/24 02:54 Nasal Cannula 2 03/10/24 02:54 Nasal Cannula 2 03/10/24 02:54 Nasal Cannula 2 Intake & Output 03/08/24 03/09/24 03/10/24 03/11/24 06:59 06:59 06:59 06:59 Intake Total 0 / 0 268.5 / 268.5 Output Total 450 / 450 270 / 270 Balance -450 / -450 -1.5 / -1.5 Weight 201 lb 4.513 oz Laboratory Results Laboratory Results - last 24 hr 03/10/24 03/10/24 03/10/24 03:53 04:15 04:20 WBC 21.66 H RBC 4.09 L Hgb 10.4 L POC Hgb 10.9 L Hct 33.4 L POC Hct 32 L MCV 81.7 MCH 25.4 MCHC 31.1 L RDW Std Deviation 45.4 RDW Coeff of Michael 15.3 H Plt Count 190 MPV 11.6 Immature Gran % (Auto) 0.9 Neut % (Auto) 90.2 Lymph % (Auto) 4.8 [place] % (Auto) 4.0 Eos % (Auto) 0.0 Baso % (Auto) 0.1 Neut # (Auto) 19.51 H Lymph # (Auto) 1.05 L [place] # (Auto) 0.87 H Eos # (Auto) 0.00 Baso # (Auto) 0.03 Immature Gran # (Auto) 0.20 Polychromasia 1+ PT 12.7 H INR 1.2 H APTT 36 H PTT Ratio 1.3 Heparin Anti-Xa, Unfract Specimen Type Arterial Sample Site L Radial POC pH 7.44 POC pCO2 22 L POC pO2 177 H POC HCO3 15 L POC Total CO2 15 L POC Base Excess -9.0 O2 Sat Pulse Oximetry 99 ABG pH (Temp Correct) 7.433 ABG pCO2 (Temp Corrct 22 L POC ABG pO2 at Pt Temp 179 POC ABG O2 Sat 100.0 H Ricardo Test Fail O2 Delivery Device BIPAP POC FiO2 50 EPAP 5 IPAP 10 POC Sodium 134 L Sodium 135 L POC Potassium 3.8 Potassium 4.2 Chloride 103 Carbon Dioxide 18 L Anion Gap 14 H BUN 24 H Creatinine 1.50 H Est Cr Clr Drug Dosing 38.3 eGFR 36.12 BUN/Creatinine Ratio 16.0 Glucose 301 H* POC Glucose Estimat Average Glucose Pending Hemoglobin A1c Pending Lactate Calcium 8.9 Phosphorus 4.2 Magnesium 2.1 Total Bilirubin 1.1 H Direct Bilirubin 0.6 H AST 59 H ALT 30 Alkaline Phosphatase 72 Troponin I High Sens 6790.1 H* B-Natriuretic Peptide 1511 H Total Protein 6.6 Albumin 3.9 Vitamin B12 Procalcitonin 15.10 H Urine Color Urine Appearance Urine pH Ur Specific [place] Urine Protein Urine Glucose (UA) Urine Ketones Urine Blood Urine Nitrite Urine Bilirubin Urine Urobilinogen Ur Leukocyte Esterase Urine WBC (Auto) Urine RBC (Auto) U Hyaline Cast (Auto) U Epithel Cells (Auto) Urine Bacteria (Auto) Hyaline Casts Granular Casts Nasal Screen MRSA (PCR) Adenovirus (PCR) B. pertussis DNA (PCR) B.parapertussis DNA PCR C. pneumoniae DNA (PCR) Coronavirus OC43 (PCR) Coronavirus HKU1 (PCR) Coronavirus 229E (PCR) SARS-CoV-2 (PCR) Coronavirus NL63 (PCR) Human Metapneumovir PCR Influenza Type A (PCR) Influenza Type B (PCR) M. pneumoniae (PCR) Parainfluenza 1 (PCR) Parainfluenza 2 (PCR) Parainfluenza 3 (PCR) Parainfluenza 4 (PCR) RSV (PCR) Entero/Rhino (PCR) 03/10/24 03/10/24 03/10/24 04:22 04:23 05:20 WBC RBC Hgb POC Hgb Hct POC Hct MCV MCH MCHC RDW Std Deviation RDW Coeff of Michael Plt Count MPV Immature Gran % (Auto) Neut % (Auto) Lymph % (Auto) [place] % (Auto) Eos % (Auto) Baso % (Auto) Neut # (Auto) Lymph # (Auto) [place] # (Auto) Eos # (Auto) Baso # (Auto) Immature Gran # (Auto) Polychromasia PT INR APTT PTT Ratio Heparin Anti-Xa, Unfract Specimen Type Sample Site POC pH POC pCO2 POC pO2 POC HCO3 POC Total CO2 POC Base Excess O2 Sat Pulse Oximetry ABG pH (Temp Correct) ABG pCO2 (Temp Corrct POC ABG pO2 at Pt Temp POC ABG O2 Sat Ricardo Test O2 Delivery Device POC FiO2 EPAP IPAP POC Sodium Sodium POC Potassium Potassium Chloride Carbon Dioxide Anion Gap BUN Creatinine Est Cr Clr Drug Dosing eGFR BUN/Creatinine Ratio Glucose POC Glucose 308 H* 298 H Estimat Average Glucose Hemoglobin A1c Lactate 2.8 H* Calcium Phosphorus Magnesium Total Bilirubin Direct Bilirubin AST ALT Alkaline Phosphatase Troponin I High Sens B-Natriuretic Peptide Total Protein Albumin Vitamin B12 Procalcitonin Urine Color Urine Appearance Urine pH Ur Specific [place] Urine Protein Urine Glucose (UA) Urine Ketones Urine Blood Urine Nitrite Urine Bilirubin Urine Urobilinogen Ur Leukocyte Esterase Urine WBC (Auto) Urine RBC (Auto) U Hyaline Cast (Auto) U Epithel Cells (Auto) Urine Bacteria (Auto) Hyaline Casts Granular Casts Nasal Screen MRSA (PCR) Adenovirus (PCR) B. pertussis DNA (PCR) B.parapertussis DNA PCR C. pneumoniae DNA (PCR) Coronavirus OC43 (PCR) Coronavirus HKU1 (PCR) Coronavirus 229E (PCR) SARS-CoV-2 (PCR) Coronavirus NL63 (PCR) Human Metapneumovir PCR Influenza Type A (PCR) Influenza Type B (PCR) M. pneumoniae (PCR) Parainfluenza 1 (PCR) Parainfluenza 2 (PCR) Parainfluenza 3 (PCR) Parainfluenza 4 (PCR) RSV (PCR) Entero/Rhino (PCR) 03/10/24 03/10/24 03/10/24 06:12 10:38 11:00 WBC RBC Hgb POC Hgb Hct POC Hct MCV MCH MCHC RDW Std Deviation RDW Coeff of Michael Plt Count MPV Immature Gran % (Auto) Neut % (Auto) Lymph % (Auto) [place] % (Auto) Eos % (Auto) Baso % (Auto) Neut # (Auto) Lymph # (Auto) [place] # (Auto) Eos # (Auto) Baso # (Auto) Immature Gran # (Auto) Polychromasia PT INR APTT PTT Ratio Heparin Anti-Xa, Unfract > 1.50 H* Specimen Type Sample Site POC pH POC pCO2 POC pO2 POC HCO3 POC Total CO2 POC Base Excess O2 Sat Pulse Oximetry ABG pH (Temp Correct) ABG pCO2 (Temp Corrct POC ABG pO2 at Pt Temp POC ABG O2 Sat Ricardo Test O2 Delivery Device POC FiO2 EPAP IPAP POC Sodium Sodium 136 POC Potassium Potassium 3.4 L Chloride 104 Carbon Dioxide 20 L Anion Gap 12 H BUN 27 H Creatinine 1.39 H Est Cr Clr Drug Dosing 41.3 eGFR 39.57 BUN/Creatinine Ratio 19.4 Glucose 208 H POC Glucose 260 H Estimat Average Glucose Hemoglobin A1c Lactate Calcium 8.9 Phosphorus Magnesium 2.1 Total Bilirubin Direct Bilirubin AST ALT Alkaline Phosphatase Troponin I High Sens 80656.9 H* D 22449.3 H* B-Natriuretic Peptide Total Protein Albumin Vitamin B12 319 Procalcitonin Urine Color Urine Appearance Urine pH Ur Specific [place] Urine Protein Urine Glucose (UA) Urine Ketones Urine Blood Urine Nitrite Urine Bilirubin Urine Urobilinogen Ur Leukocyte Esterase Urine WBC (Auto) Urine RBC (Auto) U Hyaline Cast (Auto) U Epithel Cells (Auto) Urine Bacteria (Auto) Hyaline Casts Granular Casts Nasal Screen MRSA (PCR) Adenovirus (PCR) B. pertussis DNA (PCR) B.parapertussis DNA PCR C. pneumoniae DNA (PCR) Coronavirus OC43 (PCR) Coronavirus HKU1 (PCR) Coronavirus 229E (PCR) SARS-CoV-2 (PCR) Coronavirus NL63 (PCR) Human Metapneumovir PCR Influenza Type A (PCR) Influenza Type B (PCR) M. pneumoniae (PCR) Parainfluenza 1 (PCR) Parainfluenza 2 (PCR) Parainfluenza 3 (PCR) Parainfluenza 4 (PCR) RSV (PCR) Entero/Rhino (PCR) 03/10/24 03/10/24 11:58 Unknown WBC RBC Hgb POC Hgb Hct POC Hct MCV MCH MCHC RDW Std Deviation RDW Coeff of Michael Plt Count MPV Immature Gran % (Auto) Neut % (Auto) Lymph % (Auto) [place] % (Auto) Eos % (Auto) Baso % (Auto) Neut # (Auto) Lymph # (Auto) [place] # (Auto) Eos # (Auto) Baso # (Auto) Immature Gran # (Auto) Polychromasia PT INR APTT PTT Ratio Heparin Anti-Xa, Unfract Specimen Type Sample Site POC pH POC pCO2 POC pO2 POC HCO3 POC Total CO2 POC Base Excess O2 Sat Pulse Oximetry ABG pH (Temp Correct) ABG pCO2 (Temp Corrct POC ABG pO2 at Pt Temp POC ABG O2 Sat Ricardo Test O2 Delivery Device POC FiO2 EPAP IPAP POC Sodium Sodium POC Potassium Potassium Chloride Carbon Dioxide Anion Gap BUN Creatinine Est Cr Clr Drug Dosing eGFR BUN/Creatinine Ratio Glucose POC Glucose 220 H Estimat Average Glucose Hemoglobin A1c Lactate Calcium Phosphorus Magnesium Total Bilirubin Direct Bilirubin AST ALT Alkaline Phosphatase Troponin I High Sens B-Natriuretic Peptide Total Protein Albumin Vitamin B12 Procalcitonin Urine Color Yellow Urine Appearance Cloudy A Urine pH 5.0 Ur Specific [place] > 1.045 H Urine Protein 2+ H Urine Glucose (UA) Negative Urine Ketones Negative Urine Blood 3+ H Urine Nitrite Negative Urine Bilirubin Negative Urine Urobilinogen Negative Ur Leukocyte Esterase Negative Urine WBC (Auto) 0-5 Urine RBC (Auto) >20 H U Hyaline Cast (Auto) 11-20 H U Epithel Cells (Auto) 0-2 Urine Bacteria (Auto) 2+ H Hyaline Casts Present A Granular Casts Present A Nasal Screen MRSA (PCR) Negative Adenovirus (PCR) Not Detected B. pertussis DNA (PCR) Not Detected B.parapertussis DNA PCR Not Detected C. pneumoniae DNA (PCR) Not Detected Coronavirus OC43 (PCR) Not Detected Coronavirus HKU1 (PCR) Not Detected Coronavirus 229E (PCR) Not Detected SARS-CoV-2 (PCR) Not Detected Coronavirus NL63 (PCR) Not Detected Human Metapneumovir PCR Not Detected Influenza Type A (PCR) Not Detected Influenza Type B (PCR) Not Detected M. pneumoniae (PCR) Not Detected Parainfluenza 1 (PCR) Not Detected Parainfluenza 2 (PCR) Not Detected Parainfluenza 3 (PCR) Not Detected Parainfluenza 4 (PCR) Not Detected RSV (PCR) Not Detected Entero/Rhino (PCR) Not Detected Diagnostic Findings ECHO 03/10/2024: 1. Normal left ventricular size and systolic function. EF 55-60%. Akinesis of the basal inferolateral wall. Hypokinesis of the basal inferior and basal inferoseptal wall segments. No left ventricular hypertrophy. 2. Moderate left atrial dilation. 3. Moderate mitral regurgitation. 4. Mild aortic regurgitation. 5. Normal estimated right ventricular systolic pressure; RVSP 29 mmHg. 6. Technically difficult study. 7. No prior study available for comparison. History and physical report reviewed. Critical care consultation report reviewed. Labs reviewed and notable for elevated high-sensitivity troponin, initially 6790 and uptrending to 12,835. Elevated BNP; mild hypokalemia; abnormal renal function but improving since presentation; elevated AST; normal magnesium; leukocytosis; mild anemia (chronic). Elevated procalcitonin. ECG personally reviewed from 03/10/2024 at 3:51 AM: Atrial fibrillation [address] abnormality. Chest x-ray 03/10/2024: Image personally reviewed. No obvious infiltrate. Increased vascular markings. Telemetry personally reviewed: Atrial fibrillation. Heart rate well-controlled today. Medications Administered Current Inpatient Medications Albuterol (Albut/Ipratrop 3mg/0.5mg Neb 3 Ml Vial) 3 ml INH Q4H PRN PRN Reason: Dyspnea Stop: 04/09/24 02:58 Dextrose (Dextrose 50% 50 Ml Syringe) 25 - 50 ml IV UD PRN; Protocol PRN Reason: Hypoglycemia Protocol Stop: 04/09/24 02:58 Glucagon (Glucagon For Inj 1 Mg Vial) 1 mg SQ UD PRN; Protocol PRN Reason: Hypoglycemia Protocol Stop: 04/09/24 02:58 Glucose (Glucose 40% Gel 15 Gm Tube) 15 - 30 gm PO UD PRN; Protocol PRN Reason: Hypoglycemia Protocol Stop: 04/09/24 02:58 Glucose (Glucose 10 Tab/Tube) 4 - 8 tab PO UD PRN; Protocol PRN Reason: Hypoglycemia Protocol Stop: 04/09/24 02:58 Diltiazem HCl 125 mg/ Dextrose 125 mls @ 5 mls/hr IV .Q24H [facility]; Protocol Stop: 04/09/24 03:59 Last Admin: 03/10/24 05:22 Dose: Not Given Pantoprazole Sodium (Protonix) 40 mg in 10 mls @ 5 mls/min IV DAILY JAIDEN Stop: 04/09/24 08:59 Last Admin: 03/10/24 11:20 Dose: 5 mls/min Heparin Sodium/Dextrose (Heparin Sodium/Dextrose) 25,000 units in 500 mls @ 0 mls/hr IV .Q0M [facility]; Protocol Stop: 04/09/24 04:44 Last Titration: 03/10/24 11:51 Dose: 0 units/hr, 0 mls/hr Ceftriaxone Sodium (Rocephin) 2,000 mg in 50 mls @ 100 mls/hr IV Q24H [facility] Stop: 03/15/24 21:59 Doxycycline Hyclate 100 mg/ (Dextrose) 100 mls @ 50 mls/hr IV Q12H [facility] Stop: 03/15/24 21:59 Insulin Aspart (Insulin Aspart Per Unit Charge) 0 units SC Q6 JAIDEN Stop: 04/09/24 05:59 Last Admin: 03/10/24 12:59 Dose: 4 units Insulin Glargine (Lantus Per Unit Charge) 5 units SC DAILY [facility] Stop: 04/09/24 13:14 Metoprolol Tartrate (Metoprolol Tartrate 25 Mg Tab) 12.5 mg PO BID [facility] Stop: 04/09/24 08:59 Last Admin: 03/10/24 08:19 Dose: 12.5 mg Miscellaneous (Carbohydrates For Hypoglycemia ) 15 - 30 gm PO UD PRN PRN Reason: Hypoglycemia Protocol Stop: 04/09/24 02:58 Miscellaneous Information (Pharmacy Glycemic Mgmt Consult) 1 each N/A UD PRN; Protocol PRN Reason: Consult Stop: 04/09/24 09:10 Rosuvastatin Calcium (Rosuvastatin Calcium 20 Mg Tab) 20 mg PO QAM [facility] Stop: 04/09/24 08:59 Last Admin: 03/10/24 08:20 Dose: 20 mg PG Care Time/CCT Total # of Minutes Spent Total Time Spent with Patient: Total time spent is greater than 50% in coordination of care (as documented) at patient's floor/unit and/or counseling patient: Coding Level of Care Code 42185 INT INP/OBS CARE MIN Diagnoses NSTEMI (non-ST elevated myocardial infarction) I21.4 Atrial fibrillation, permanent I48.21 Hypertension I10 Hyperlipidemia E78.5 Mitral regurgitation I34.0 Pneumonia J18.9
--- NOTE | 2024-03-10 11:34 | XCELERA ---
[id number] [id number]
[2024-03-10 11:44] LABS: ANTI-Xa, UFH(UnfractionatedHep > 1.50 IU/ml (0.3-0.7)
[2024-03-10 11:55] LABS: Troponin I High Sensitivity 11830.9 pg/ml (0-14)
[2024-03-10 12:15] LABS: Appearance Urine Cloudy (Clear); Bilirubin Urine Negative (Negative); Blood Urine 3+ (Negative); Color Urine Yellow; Epithelial Cell Urine Auto 0-2 /hpf (0-2); Glucose Urine UA Negative (Negative); Ketones Urine Negative (Negative); Leukocyte Esterase Urine Negative (Negative); Nitrite Urine Negative (Negative); Protein Urine 2+ (Negative); RBC Urine Automated >20 /hpf (0-2); Specific Gravity Urine > 1.045 (1.000-1.030); Urobilinogen Urine Negative (Negative); WBC Urine Automated 0-5 /hpf (0-5)
[2024-03-10 12:38] LABS: Bacteria Urine Automated 2+ (None Seen); Granular Casts Urine Present /lpf (None Prsent); Hyaline Casts Urine Present /lpf (None Presnt)
[2024-03-10 12:57] LABS: Adenovirus PCR Not Detected (NotDetected); Bordetella parapertussis PCR Not Detected (NotDetected); Bordetella pertussis PCR Not Detected (NotDetected); Chlamydia pneumoniae PCR Not Detected (NotDetected); Coronavirus 229E PCR Not Detected (NotDetected); Coronavirus CoV-2 (COVID19)PCR Not Detected (NotDetected); Coronavirus HKU1 PCR Not Detected (NotDetected); Coronavirus NL63 PCR Not Detected (NotDetected); Coronavirus OC43PCR Not Detected (NotDetected); Human Metapneumovirus PCR Not Detected (NotDetected); Influenza A PCR Not Detected (NotDetected); Influenza B PCR Not Detected (NotDetected); Mycoplasma pneumoniae PCR Not Detected (NotDetected); Parainfluenza Virus 1 PCR Not Detected (NotDetected); Parainfluenza Virus 2 PCR Not Detected (NotDetected); Parainfluenza Virus 3 PCR Not Detected (NotDetected); Parainfluenza Virus 4 PCR Not Detected (NotDetected); Respiratory Syncytial VirusPCR Not Detected (NotDetected); Rhinovirus/Enterovirus PCR Not Detected (NotDetected)
[2024-03-10] MEDS: CYANOCOBALAMIN 1000 MCG/ML VIAL IM SCH (14:00)
--- NOTE | 2024-03-10 14:36 | Pharmacy Report ---
Pharmacy Glycemic Short Note 2 - Date of Service March 10, 2024 - Glycemic Short BSG Results (Last 24 hours): 03/10/24 03/10/24 03/10/24 04:15 04:22 04:23 Glucose 301 H* POC Glucose 308 H* 298 H 03/10/24 03/10/24 03/10/24 06:12 10:38 11:58 Glucose 208 H POC Glucose 260 H 220 H OUTPATIENT ANTIDIABETIC REGIMEN: * metformin 500mg PO daily * HbA1c pending (03/10/24) ASSESSMENT: * Rosamaria is a 73 YOF admitted with Afib and a history of type 2 diabetes mellitus. Pharmacy has been consulted to assist with glycemic management while inpatient. * Fasting BSG this AM around 300. NovoLog initiated at a weight based stress at a weight based stress of 3. BSGs come down some, but still elevated, will give a small dose of Lantus and add a scale at bedtime if still elevated. f * She is on IV doxycycline and ceftriaxone (in D5W) as well as a heparin drip and diltiazem drip (both mixed in D5W). She is currently NPO. PLAN FOR INPATIENT GLYCEMIC CONTROL: * Hold outpatient oral diabetes medications * Basal insulin * Lantus 5 units SQ daily * Lantus 0-5 units SQ HS (if BSG is greater than 180mg/dL) * Bolus insulin * NovoLog per scale ACHS or Q6hrs while NPO * Goal Range: Low 100 mg/dL - High 140 mg/dL * Correction Factor: 20 mg/dL/unit * Nutritional / Prandial insulin per carb ratio of 1 unit per 10 grams CHO consumed
[2024-03-10] MEDS: POTASSIUM CHLORIDE CRTAB 20 MEQ TABCR PO STA (14:41)
[2024-03-10] MEDS: PLASMA-LYTE A 500 ML IV ONE (14:41)
[2024-03-10] MEDS: LANTUS PER UNIT CHARGE SC SCH (14:41)
[2024-03-10 15:31] LABS: ANTI-Xa, UFH(UnfractionatedHep 1.37 IU/ml (0.3-0.7)
[2024-03-10 16:55] LABS: Estimated Average Glucose 171 mg/dl; Hemoglobin A1C 7.6 % (4.5-5.6)
[2024-03-10] MEDS: ASPIRIN 325 MG ECTAB PO ONE (18:05)
[2024-03-10 18:43] LABS: ANTI-Xa, UFH(UnfractionatedHep 1.19 IU/ml (0.3-0.7)
[2024-03-10] MEDS: LANTUS PER UNIT CHARGE SQ SCH (20:40)
[2024-03-10] MEDS: DOXYCYCLINE HYCLATE 100 MG in DEXTROSE 5% MINI-B 100 ML IV SCH (21:02)
[2024-03-10 21:05] LABS: ANTI-Xa, UFH(UnfractionatedHep 1.11 IU/ml (0.3-0.7)
[2024-03-10] MEDS ORDERED: cefTRIAXone SODIUM 2,000 MG/50 ML BAG IV SCH (22:00)
[2024-03-10 23:35] LABS: ANTI-Xa, UFH(UnfractionatedHep 1.07 IU/ml (0.3-0.7)
[2024-03-11 01:26] LABS: ANTI-Xa, UFH(UnfractionatedHep 1.08 IU/ml (0.3-0.7)
[2024-03-11 04:31] LABS: Basophils # (auto) 0.05 K/uL (0.00-0.20); Basophils % (auto) 0.4 %; Hematocrit (blood only) 29.9 % (37.0-47.0); Hemoglobin 9.6 g/dl (12.0-16.0); Immature Granulocytes # (auto) 0.08 K/uL (0.01-0.20); Immature Granulocytes % (auto) 0.6 %; Lymphocytes # (auto) 1.49 K/uL (1.20-3.40); Lymphocytes % (auto) 11.3 %; Mean Corpuscular Hemoglobin 25.7 pg (25.0-34.0); Mean Corpuscular Hgb Conc 32.1 g/dL (32.0-36.0); Mean Corpuscular Volume 79.9 fL (80.0-100.0); Mean Platelet Volume 11.6 fL (9.4-12.4); Monocytes # (auto) 0.96 K/uL (0.11-0.59); Monocytes % (auto) 7.3 %; Neutrophils # (auto) 10.57 K/uL (1.40-6.50); Neutrophils % (auto) 80.4 %; Platelet Count 149 K/uL (130-400); RDW Coefficient of Variation 15.5 % (11.5-14.5); RDW Standard Deviation 44.7 fL (36.4-46.3); Red Blood Count 3.74 M/uL (4.20-5.40); White Blood Count 13.15 K/ul (4.8-10.8)
[2024-03-11 04:43] LABS: Albumin Globulin Ratio 1.5 (0.9-2); Albumin Level 3.8 gm/dl (3.4-5.0); BUN Creatinine Ratio 26.1 (10-20); Bilirubin,Total 0.5 mg/dl (0.2-1.0); Calcium 8.6 mg/dl (8.6-10.3); Chol HDL Ratio 2.4 (0-5); Creatinine Clr Calc Pharmacy 48.3 ml/min; Globulin 2.6 gm/dl (2.5-4.0); Magnesium 1.9 mg/dl (1.7-2.4); Potassium 3.8 mmol/L (3.5-5.1); Total Protein 6.4 gm/dl (6.0-8.3)
[2024-03-11 04:49] LABS: Partial Thromboplastin Ratio 1.3; Partial Thromboplastin Time 35 Seconds (21-31)
[2024-03-11 04:51] LABS: ANTI-Xa, UFH(UnfractionatedHep 0.93 IU/ml (0.3-0.7)
--- NOTE | 2024-03-11 06:04 | Electrocardiogram Report ---
Test Reason : Blood Pressure : */* mmHG Vent. Rate : 76 BPM Atrial Rate : 83 BPM P-R Int : * ms QRS Dur : 76 ms QT Int : 406 ms P-R-T Axes : * -9 52 degrees QTcB Int : [address] depression, consider subendocardial injury Abnormal ECG When compared with ECG of 15-Sep-2019 21:55, Vent. rate has decreased by [address] now depressed in Anterior leads Nonspecific T wave abnormality, improved in Lateral leads Confirmed by Lex Tabor ([id number]) on 03/11/2024 6:04:22 AM Referred By: REFERRED SELF Confirmed By: Lex Tabor
[2024-03-11 08:05] LABS: ANTI-Xa, UFH(UnfractionatedHep 0.86 IU/ml (0.3-0.7)
[2024-03-11] MEDS: VITAMIN B COMPLEX TAB PO SCH (08:36)
--- NOTE | 2024-03-11 09:27 | Hospitalist Progress Note ---
Date of Service March 11, 2024 Assessment & Plan (1) Sepsis due to pneumonia: (2) Acute hypoxic respiratory failure: (3) Pneumonia: (4) Atrial fibrillation with RVR: (5) NSTEMI (non-ST elevated myocardial infarction): (6) Hyperlipidemia: (7) Hypertension: (8) Type 2 diabetes mellitus: (9) EDDA (acute kidney injury): Plan 73-year-old female with past medical history of hypertension, hyperlipidemia, atrial fibrillation on anticoagulation with Eliquis, type 2 diabetes mellitus, history of GI bleed secondary to peptic ulcer disease who presented to the emergency department at [facility] after experiencing a ground-level fall at home when family was unable to pick her up and was found to be in A-fib with RVR with rate of 140 250 at [facility]. She was also found to have saturations in the low 80s on room air initially requiring 5 L of nasal cannula and then was switched to BiPAP and was started on Cardizem drip and given IV Zosyn for multifocal pneumonia and was found to have elevated troponin of 700, was started on heparin infusion and transferred to [facility] #Acute hypoxic respiratory failure Likely multifocal: From multifocal pneumonia, sepsis from pneumonia and NSTEMI Patient is now on 2 L of oxygen via nasal cannula and no longer requiring BiPAP She is currently on room air #Sepsis likely secondary to multifocal pneumonia, present on admission Patient with elevated white count, elevated lactic acid levels, procalcitonin of 15 and EDDA with CTA at [facility] showing multifocal pneumonia Blood cultures sent from [facility]: Results pending Repeat blood cultures from 03/10/2024: Results pending Patient received IV Zosyn at [facility] MRSA screen is negative Continue IV ceftriaxone plus IV doxycycline (day 2) Urine culture: Results pending White count and lactate levels have improved Procalcitonin is improving #NSTEMI #Atrial fibrillation with RVR #Essential hypertension #Hyperlipidemia #Moderate mitral regurgitation Eliquis has been switched to IV heparin infusion on admission Continue IV heparin infusion Troponin at [facility] noted at 700, troponins have peaked at 17,682 and are downtrending Triglycerides of 129 Cholesterol is 93 HDL is 38 LDL is 29 Continue aspirin plus statin 2D echo shows EF of 55 to 60% with moderate mitral regurgitation Atenolol has been stopped and patient switched to metoprolol: Increase metoprolol to 25 mg p.o. twice daily for better rate control Cardiology saw the patient, recommended continuing heparin infusion and scheduled for cardiac cath tomorrow #Type 2 diabetes mellitus Metformin held for now A1c 7.6 B12 is 319: Patient on B12 supplementation Pharmacy managing glycemic control #EDDA #Hypomagnesemia EDDA likely in the setting of sepsis Renal function is improving Monitor renal function and electrolytes Avoid nephrotoxic agents including NSAIDs Replace electrolytes as needed #History of GI bleeding secondary to peptic ulcer disease Continue Protonix #Ground-level fall CT of head at [facility] is negative for acute intracranial abnormality CT cervical spine at [facility] shows multilevel cervical spondylosis, negative for acute fracture or dislocation CT abdomen plus pelvis with contrast shows negative for acute intra-abdominal pathology PT/OT consults CODE STATUS: DNR/DNI DVT prophylaxis: Patient on heparin infusion Care plan discussed with patient, nursing staff Daughter Mercedez Huitron ([phone]): message left to update Admission and Anticipated Discharge Date Admission Date: March 10, 2024 Subjective Patient seen and examined Labs reviewed Telemetry reviewed Reports feeling much better today, she is off oxygen, denies any chest pain, shortness of breath, cough, fever, chills, nausea, vomiting or abdominal pain Overall feels much better She met with cardiology yesterday and is scheduled for cardiac cath tomorrow Physical Exam Physical Exam: General: No acute distress, talking in full sentences Psych: Awake and alert, oriented to place person and time HEENT: Anicteric sclera, moist oral mucosa CVS: Regular rate and rhythm Lungs: Bilateral air entry, no wheezing noted Abdomen: Soft, nontender, no rebound, no guarding Ext: No lower extremity edema, no calf tenderness : Radford catheter in place Neuro: No focal motor deficits noted Results & Data Results & Data Vital Signs (Past 12 Hours) Vital Signs Temp Pulse Pulse Resp BP Pulse Ox Pulse Ox 03/11/24 07:39 03/11/24 07:27 37.1 C 99 H 18 119/75 95 03/11/24 03:25 37.1 C 105 H 18 120/75 96 03/11/24 02:54 96 03/11/24 00:00 85 03/10/24 23:30 36.7 C 87 21 99/63 L 96 O2 Del Method O2 Del Method 03/11/24 07:39 Room Air 03/11/24 07:27 Room Air 03/11/24 03:25 Room Air 03/11/24 02:54 Room Air 03/11/24 00:00 03/10/24 23:30 Room Air Laboratory Results Laboratory Results - last 24 hr 03/10/24 03/10/24 03/10/24 10:38 11:00 11:58 WBC RBC Hgb Hct MCV MCH MCHC RDW Std Deviation RDW Coeff of Michael Plt Count MPV Immature Gran % (Auto) Neut % (Auto) Lymph % (Auto) [place] % (Auto) Eos % (Auto) Baso % (Auto) Neut # (Auto) Lymph # (Auto) [place] # (Auto) Eos # (Auto) Baso # (Auto) Immature Gran # (Auto) APTT PTT Ratio Heparin Anti-Xa, Unfract > 1.50 H* Sodium 136 Potassium 3.4 L Chloride 104 Carbon Dioxide 20 L Anion Gap 12 H BUN 27 H Creatinine 1.39 H Est Cr Clr Drug Dosing 41.3 eGFR 39.57 BUN/Creatinine Ratio 19.4 Glucose 208 H POC Glucose 220 H Estimat Average Glucose Cancelled Hemoglobin A1c Cancelled Lactate Calcium 8.9 Magnesium 2.1 Total Bilirubin AST ALT Alkaline Phosphatase Troponin I High Sens 29682.9 H* D 92143.3 H* Total Protein Albumin Globulin Albumin/Globulin Ratio Triglycerides Cholesterol LDL Cholesterol, Calc VLDL Cholesterol, Calc HDL Cholesterol Cholesterol/HDL Ratio Vitamin B12 319 Procalcitonin Urine Color Urine Appearance Urine pH Ur Specific [place] Urine Protein Urine Glucose (UA) Urine Ketones Urine Blood Urine Nitrite Urine Bilirubin Urine Urobilinogen Ur Leukocyte Esterase Urine WBC (Auto) Urine RBC (Auto) U Hyaline Cast (Auto) U Epithel Cells (Auto) Urine Bacteria (Auto) Hyaline Casts Granular Casts Adenovirus (PCR) B. pertussis DNA (PCR) B.parapertussis DNA PCR C. pneumoniae DNA (PCR) Coronavirus OC43 (PCR) Coronavirus HKU1 (PCR) Coronavirus 229E (PCR) SARS-CoV-2 (PCR) Coronavirus NL63 (PCR) Human Metapneumovir PCR Influenza Type A (PCR) Influenza Type B (PCR) M. pneumoniae (PCR) Parainfluenza 1 (PCR) Parainfluenza 2 (PCR) Parainfluenza 3 (PCR) Parainfluenza 4 (PCR) RSV (PCR) Entero/Rhino (PCR) 03/10/24 03/10/24 03/10/24 14:43 15:51 17:15 WBC RBC Hgb Hct MCV MCH MCHC RDW Std Deviation RDW Coeff of Michael Plt Count MPV Immature Gran % (Auto) Neut % (Auto) Lymph % (Auto) [place] % (Auto) Eos % (Auto) Baso % (Auto) Neut # (Auto) Lymph # (Auto) [place] # (Auto) Eos # (Auto) Baso # (Auto) Immature Gran # (Auto) APTT PTT Ratio Heparin Anti-Xa, Unfract 1.37 H* 1.30 H* Sodium Potassium Chloride Carbon Dioxide Anion Gap BUN Creatinine Est Cr Clr Drug Dosing eGFR BUN/Creatinine Ratio Glucose POC Glucose 149 H Estimat Average Glucose 171 Hemoglobin A1c 7.6 H Lactate Calcium Magnesium Total Bilirubin AST ALT Alkaline Phosphatase Troponin I High Sens 29444.6 H* D Total Protein Albumin Globulin Albumin/Globulin Ratio Triglycerides Cholesterol LDL Cholesterol, Calc VLDL Cholesterol, Calc HDL Cholesterol Cholesterol/HDL Ratio Vitamin B12 Procalcitonin Urine Color Urine Appearance Urine pH Ur Specific [place] Urine Protein Urine Glucose (UA) Urine Ketones Urine Blood Urine Nitrite Urine Bilirubin Urine Urobilinogen Ur Leukocyte Esterase Urine WBC (Auto) Urine RBC (Auto) U Hyaline Cast (Auto) U Epithel Cells (Auto) Urine Bacteria (Auto) Hyaline Casts Granular Casts Adenovirus (PCR) B. pertussis DNA (PCR) B.parapertussis DNA PCR C. pneumoniae DNA (PCR) Coronavirus OC43 (PCR) Coronavirus HKU1 (PCR) Coronavirus 229E (PCR) SARS-CoV-2 (PCR) Coronavirus NL63 (PCR) Human Metapneumovir PCR Influenza Type A (PCR) Influenza Type B (PCR) M. pneumoniae (PCR) Parainfluenza 1 (PCR) Parainfluenza 2 (PCR) Parainfluenza 3 (PCR) Parainfluenza 4 (PCR) RSV (PCR) Entero/Rhino (PCR) 03/10/24 03/10/24 03/10/24 17:51 20:13 20:28 WBC RBC Hgb Hct MCV MCH MCHC RDW Std Deviation RDW Coeff of Michael Plt Count MPV Immature Gran % (Auto) Neut % (Auto) Lymph % (Auto) [place] % (Auto) Eos % (Auto) Baso % (Auto) Neut # (Auto) Lymph # (Auto) [place] # (Auto) Eos # (Auto) Baso # (Auto) Immature Gran # (Auto) APTT PTT Ratio Heparin Anti-Xa, Unfract 1.19 H* 1.11 H* Sodium Potassium Chloride Carbon Dioxide Anion Gap BUN Creatinine Est Cr Clr Drug Dosing eGFR BUN/Creatinine Ratio Glucose POC Glucose 172 H Estimat Average Glucose Hemoglobin A1c Lactate 1.6 Calcium Magnesium Total Bilirubin AST ALT Alkaline Phosphatase Troponin I High Sens Total Protein Albumin Globulin Albumin/Globulin Ratio Triglycerides Cholesterol LDL Cholesterol, Calc VLDL Cholesterol, Calc HDL Cholesterol Cholesterol/HDL Ratio Vitamin B12 Procalcitonin Urine Color Urine Appearance Urine pH Ur Specific [place] Urine Protein Urine Glucose (UA) Urine Ketones Urine Blood Urine Nitrite Urine Bilirubin Urine Urobilinogen Ur Leukocyte Esterase Urine WBC (Auto) Urine RBC (Auto) U Hyaline Cast (Auto) U Epithel Cells (Auto) Urine Bacteria (Auto) Hyaline Casts Granular Casts Adenovirus (PCR) B. pertussis DNA (PCR) B.parapertussis DNA PCR C. pneumoniae DNA (PCR) Coronavirus OC43 (PCR) Coronavirus HKU1 (PCR) Coronavirus 229E (PCR) SARS-CoV-2 (PCR) Coronavirus NL63 (PCR) Human Metapneumovir PCR Influenza Type A (PCR) Influenza Type B (PCR) M. pneumoniae (PCR) Parainfluenza 1 (PCR) Parainfluenza 2 (PCR) Parainfluenza 3 (PCR) Parainfluenza 4 (PCR) RSV (PCR) Entero/Rhino (PCR) 03/10/24 03/10/24 03/11/24 22:39 Unknown 00:36 WBC RBC Hgb Hct MCV MCH MCHC RDW Std Deviation RDW Coeff of Michael Plt Count MPV Immature Gran % (Auto) Neut % (Auto) Lymph % (Auto) [place] % (Auto) Eos % (Auto) Baso % (Auto) Neut # (Auto) Lymph # (Auto) [place] # (Auto) Eos # (Auto) Baso # (Auto) Immature Gran # (Auto) APTT PTT Ratio Heparin Anti-Xa, Unfract 1.07 H* 1.08 H* Sodium Potassium Chloride Carbon Dioxide Anion Gap BUN Creatinine Est Cr Clr Drug Dosing eGFR BUN/Creatinine Ratio Glucose POC Glucose Estimat Average Glucose Hemoglobin A1c Lactate Calcium Magnesium Total Bilirubin AST ALT Alkaline Phosphatase Troponin I High Sens 71922.1 H* Total Protein Albumin Globulin Albumin/Globulin Ratio Triglycerides Cholesterol LDL Cholesterol, Calc VLDL Cholesterol, Calc HDL Cholesterol Cholesterol/HDL Ratio Vitamin B12 Procalcitonin Urine Color Yellow Urine Appearance Cloudy A Urine pH 5.0 Ur Specific [place] > 1.045 H Urine Protein 2+ H Urine Glucose (UA) Negative Urine Ketones Negative Urine Blood 3+ H Urine Nitrite Negative Urine Bilirubin Negative Urine Urobilinogen Negative Ur Leukocyte Esterase Negative Urine WBC (Auto) 0-5 Urine RBC (Auto) >20 H U Hyaline Cast (Auto) 11-20 H U Epithel Cells (Auto) 0-2 Urine Bacteria (Auto) 2+ H Hyaline Casts Present A Granular Casts Present A Adenovirus (PCR) Not Detected B. pertussis DNA (PCR) Not Detected B.parapertussis DNA PCR Not Detected C. pneumoniae DNA (PCR) Not Detected Coronavirus OC43 (PCR) Not Detected Coronavirus HKU1 (PCR) Not Detected Coronavirus 229E (PCR) Not Detected SARS-CoV-2 (PCR) Not Detected Coronavirus NL63 (PCR) Not Detected Human Metapneumovir PCR Not Detected Influenza Type A (PCR) Not Detected Influenza Type B (PCR) Not Detected M. pneumoniae (PCR) Not Detected Parainfluenza 1 (PCR) Not Detected Parainfluenza 2 (PCR) Not Detected Parainfluenza 3 (PCR) Not Detected Parainfluenza 4 (PCR) Not Detected RSV (PCR) Not Detected Entero/Rhino (PCR) Not Detected 03/11/24 03/11/24 03/11/24 04:04 06:50 08:00 WBC 13.15 H RBC 3.74 L Hgb 9.6 L Hct 29.9 L MCV 79.9 L MCH 25.7 MCHC 32.1 RDW Std Deviation 44.7 RDW Coeff of Michael 15.5 H Plt Count 149 MPV 11.6 Immature Gran % (Auto) 0.6 Neut % (Auto) 80.4 Lymph % (Auto) 11.3 [place]urry % (Auto) 7.3 Eos % (Auto) 0.0 Baso % (Auto) 0.4 Neut # (Auto) 10.57 H Lymph # (Auto) 1.49 Scurry # (Auto) 0.96 H Eos # (Auto) 0.00 Baso # (Auto) 0.05 Immature Gran # (Auto) 0.08 APTT 35 H PTT Ratio 1.3 Heparin Anti-Xa, Unfract 0.93 H* 0.86 H* Sodium 135 L Potassium 3.8 Chloride 105 Carbon Dioxide 20 L Anion Gap 10 BUN 31 H Creatinine 1.19 Est Cr Clr Drug Dosing 48.3 eGFR 47.68 BUN/Creatinine Ratio 26.1 H Glucose 123 H POC Glucose 144 H Estimat Average Glucose Hemoglobin A1c Lactate 1.1 Calcium 8.6 Magnesium 1.9 Total Bilirubin 0.5 D AST 91 H ALT 43 Alkaline Phosphatase 62 Troponin I High Sens 66587.0 H* D Total Protein 6.4 Albumin 3.8 Globulin 2.6 Albumin/Globulin Ratio 1.5 Triglycerides 129 Cholesterol 93 LDL Cholesterol, Calc 29 VLDL Cholesterol, Calc 26 HDL Cholesterol 38 Cholesterol/HDL Ratio 2.4 Vitamin B12 Procalcitonin 11.00 H Urine Color Urine Appearance Urine pH Ur Specific [place] Urine Protein Urine Glucose (UA) Urine Ketones Urine Blood Urine Nitrite Urine Bilirubin Urine Urobilinogen Ur Leukocyte Esterase Urine WBC (Auto) Urine RBC (Auto) U Hyaline Cast (Auto) U Epithel Cells (Auto) Urine Bacteria (Auto) Hyaline Casts Granular Casts Adenovirus (PCR) B. pertussis DNA (PCR) B.parapertussis DNA PCR C. pneumoniae DNA (PCR) Coronavirus OC43 (PCR) Coronavirus HKU1 (PCR) Coronavirus 229E (PCR) SARS-CoV-2 (PCR) Coronavirus NL63 (PCR) Human Metapneumovir PCR Influenza Type A (PCR) Influenza Type B (PCR) M. pneumoniae (PCR) Parainfluenza 1 (PCR) Parainfluenza 2 (PCR) Parainfluenza 3 (PCR) Parainfluenza 4 (PCR) RSV (PCR) Entero/Rhino (PCR) 03/11/24 09:04 WBC RBC Hgb Hct MCV MCH MCHC RDW Std Deviation RDW Coeff of Michael Plt Count MPV Immature Gran % (Auto) Neut % (Auto) Lymph % (Auto) [place] % (Auto) Eos % (Auto) Baso % (Auto) Neut # (Auto) Lymph # (Auto) [place] # (Auto) Eos # (Auto) Baso # (Auto) Immature Gran # (Auto) APTT PTT Ratio Heparin Anti-Xa, Unfract Pending Sodium Potassium Chloride Carbon Dioxide Anion Gap BUN Creatinine Est Cr Clr Drug Dosing eGFR BUN/Creatinine Ratio Glucose POC Glucose Estimat Average Glucose Hemoglobin A1c Lactate Calcium Magnesium Total Bilirubin AST ALT Alkaline Phosphatase Troponin I High Sens Total Protein Albumin Globulin Albumin/Globulin Ratio Triglycerides Cholesterol LDL Cholesterol, Calc VLDL Cholesterol, Calc HDL Cholesterol Cholesterol/HDL Ratio Vitamin B12 Procalcitonin Urine Color Urine Appearance Urine pH Ur Specific [place] Urine Protein Urine Glucose (UA) Urine Ketones Urine Blood Urine Nitrite Urine Bilirubin Urine Urobilinogen Ur Leukocyte Esterase Urine WBC (Auto) Urine RBC (Auto) U Hyaline Cast (Auto) U Epithel Cells (Auto) Urine Bacteria (Auto) Hyaline Casts Granular Casts Adenovirus (PCR) B. pertussis DNA (PCR) B.parapertussis DNA PCR C. pneumoniae DNA (PCR) Coronavirus OC43 (PCR) Coronavirus HKU1 (PCR) Coronavirus 229E (PCR) SARS-CoV-2 (PCR) Coronavirus NL63 (PCR) Human Metapneumovir PCR Influenza Type A (PCR) Influenza Type B (PCR) M. pneumoniae (PCR) Parainfluenza 1 (PCR) Parainfluenza 2 (PCR) Parainfluenza 3 (PCR) Parainfluenza 4 (PCR) RSV (PCR) Entero/Rhino (PCR) PG Care Time/CCT Total # of Minutes Spent Total Time Spent with Patient: Total time spent is greater than 50% in coordination of care (as documented) at patient's floor/unit and/or counseling patient: Coding Level of Care Code 17593 SUB INP/OBS CARE 3/50MIN Diagnoses Sepsis due to pneumonia J18.9; A41.9 Acute hypoxic respiratory failure J96.01 Pneumonia J18.9 Atrial fibrillation with RVR I48.91 NSTEMI (non-ST elevated myocardial infarction) I21.4 Hyperlipidemia E78.5 Hypertension I10 Type 2 diabetes mellitus E11.9 EDDA (acute kidney injury) N17.9
[2024-03-11] MEDS: MAGNESIUM SULFATE / D5W 1 GM/100 ML BAG IV ONE (09:32)
[2024-03-11 09:49] LABS: ANTI-Xa, UFH(UnfractionatedHep 0.82 IU/ml (0.3-0.7)
[2024-03-11] MEDS: METOPROLOL TARTRATE 25 MG TAB PO STA (10:07)
[2024-03-11] MEDS: ASPIRIN 81 MG ECTAB PO SCH (10:08)
[2024-03-11] MEDS: cefTRIAXone SODIUM 2,000 MG/50 ML BAG IV SCH (10:11)
--- NOTE | 2024-03-11 11:17 | XRay Report ---
XR chest 2V PA/lateral CLINICAL HISTORY: PNEUMONIA VS CHF COMPARISON STUDY: Chest radiograph March 10, 2024. Chest CT March 09, 2024. FINDINGS: Cardiomegaly is again noted. Mediastinal contours are stable. There are trace bilateral ple ural effusions. Mild left basilar opacity is present. Interstitial thickening has improved. IMPRESSION: 1. Interval resolution of pulmonary edema. 2. Mild left basilar opacity which could reflect atelectasis or a focus of pneumonia. 3. Trace bilateral pleural effusions. ACT 112: Negative or not required by law. Electronically signed by: Francisco Burnett M.D. 03/11/2024 11:15 AM
[2024-03-11 12:37] LABS: ANTI-Xa, UFH(UnfractionatedHep 0.78 IU/ml (0.3-0.7)
--- NOTE | 2024-03-11 13:22 | Cardiology Progress Note ---
Date of Service March 11, 2024 Assessment & Plan (1) NSTEMI (non-ST elevated myocardial infarction): (2) Atrial fibrillation, permanent: (3) Hypertension: (4) Hyperlipidemia: (5) Mitral regurgitation: (6) Pneumonia: Plan ASSESSMENT/PLAN: 1. NSTEMI: No angina but developed acute respiratory distress and has significantly elevated troponin, peaking at 17,682. Aspirin 81 mg qday. Recommend cardiac catheterization (nonurgently). Has multiple risk factors for CAD and regional wall motion abnormalities on echo, but preserved LV systolic function. Continue high intensity statin therapy. Continue beta-terry. 2. Hypertension: Blood pressure reasonable. On atenolol 50 mg at home. Toprol increased earlier today by hospitalist service. Can resume ARB as she takes valsartan at home. 3. Dyslipidemia: Continue high intensity statin therapy. Excellent LDL. 4. Mitral regurgitation: Nonsevere. Can monitor in the outpatient setting. 5. Atrial fibrillation: Permanent. Likely tachycardic initially while in respiratory distress. Rate reasonable for current state. Beta-terry increased today to metoprolol 25 mg twice daily by hospitalist service. Continue anticoagulation for stroke risk reduction. Given that cardiac catheterization is being considered, agree with heparin drip in place of Eliquis for now. 6. Pneumonia: Multifocal pneumonia reported by hospitalist service at outside facility. Leukocytosis improving. As per primary hospitalist service. Breathing much improved. 7. Disposition: Cardiology will continue to follow. She wishes to follow in the [place] office upon discharge as she anticipates it will be difficult to travel to [place]. Will arrange appointment with Dr. Franklin in the [place] office. Plan of care discussed with Dr. Teague of the primary hospitalist service. Admission and Anticipated Discharge Date Admission Date: March 10, 2024 Subjective Patient was seen earlier this afternoon. Her brothers were present at the bedside. She denies chest discomfort. She denied shortness of breath, syncope, near syncope, palpitations, or bleeding. Review of systems: As above. Physical Exam Physical Exam: Gen.: No acute distress. Alert. HEENT: Anicteric sclera. Neck: No JVD. Cardiac: Irregularly irregular with normal heart rate. Normal S1-S2. 1/6 systolic murmur. Pulmonary: Decreased breath sounds at the bases otherwise clear to auscultation bilaterally. Abdomen: Soft, nontender, nondistended, with normoactive bowel sounds. No bruits noted. Extremities: 2+ radial pulses bilaterally. 2+ posterior tibialis pulses bilaterally. No edema or cyanosis. Results & Data Vital Signs (Past 12 Hours) Vital Signs Temp Pulse Pulse Resp BP Pulse Ox Pulse Ox 03/11/24 11:16 36.8 C 97 H 18 111/68 95 03/11/24 08:00 99 H 03/11/24 07:39 03/11/24 07:27 37.1 C 99 H 18 119/75 95 03/11/24 03:25 37.1 C 105 H 18 120/75 96 03/11/24 02:54 96 O2 Del Method O2 Del Method 03/11/24 11:16 Room Air 03/11/24 08:00 03/11/24 07:39 Room Air 03/11/24 07:27 Room Air 03/11/24 03:25 Room Air 03/11/24 02:54 Room Air Intake & Output 03/09/24 03/10/24 03/11/24 03/12/24 06:59 06:59 06:59 06:59 Intake Total 0 / 0 1088.5 / 1088.5 250 / 250 Output Total 450 / 450 670 / 670 Balance -450 / -450 418.5 / 418.5 250 / 250 Weight 201 lb 4.513 oz 193 lb 5.526 oz Laboratory Results Laboratory Results - last 24 hr 03/10/24 03/10/24 03/10/24 11:00 14:43 15:51 WBC RBC Hgb Hct MCV MCH MCHC RDW Std Deviation RDW Coeff of Michael Plt Count MPV Immature Gran % (Auto) Neut % (Auto) Lymph % (Auto) [place] % (Auto) Eos % (Auto) Baso % (Auto) Neut # (Auto) Lymph # (Auto) [place] # (Auto) Eos # (Auto) Baso # (Auto) Immature Gran # (Auto) APTT PTT Ratio Heparin Anti-Xa, Unfract 1.37 H* 1.30 H* Sodium Potassium Chloride Carbon Dioxide Anion Gap BUN Creatinine Est Cr Clr Drug Dosing eGFR BUN/Creatinine Ratio Glucose POC Glucose Estimat Average Glucose Cancelled 171 Hemoglobin A1c Cancelled 7.6 H Lactate Calcium Magnesium Total Bilirubin AST ALT Alkaline Phosphatase Troponin I High Sens 25355.6 H* D Total Protein Albumin Globulin Albumin/Globulin Ratio Triglycerides Cholesterol LDL Cholesterol, Calc VLDL Cholesterol, Calc HDL Cholesterol Cholesterol/HDL Ratio Procalcitonin 03/10/24 03/10/24 03/10/24 17:15 17:51 20:13 WBC RBC Hgb Hct MCV MCH MCHC RDW Std Deviation RDW Coeff of Michael Plt Count MPV Immature Gran % (Auto) Neut % (Auto) Lymph % (Auto) [place] % (Auto) Eos % (Auto) Baso % (Auto) Neut # (Auto) Lymph # (Auto) [place] # (Auto) Eos # (Auto) Baso # (Auto) Immature Gran # (Auto) APTT PTT Ratio Heparin Anti-Xa, Unfract 1.19 H* 1.11 H* Sodium Potassium Chloride Carbon Dioxide Anion Gap BUN Creatinine Est Cr Clr Drug Dosing eGFR BUN/Creatinine Ratio Glucose POC Glucose 149 H Estimat Average Glucose Hemoglobin A1c Lactate 1.6 Calcium Magnesium Total Bilirubin AST ALT Alkaline Phosphatase Troponin I High Sens Total Protein Albumin Globulin Albumin/Globulin Ratio Triglycerides Cholesterol LDL Cholesterol, Calc VLDL Cholesterol, Calc HDL Cholesterol Cholesterol/HDL Ratio Procalcitonin 03/10/24 03/10/24 03/11/24 20:28 22:39 00:36 WBC RBC Hgb Hct MCV MCH MCHC RDW Std Deviation RDW Coeff of Michael Plt Count MPV Immature Gran % (Auto) Neut % (Auto) Lymph % (Auto) [place] % (Auto) Eos % (Auto) Baso % (Auto) Neut # (Auto) Lymph # (Auto) [place] # (Auto) Eos # (Auto) Baso # (Auto) Immature Gran # (Auto) APTT PTT Ratio Heparin Anti-Xa, Unfract 1.07 H* 1.08 H* Sodium Potassium Chloride Carbon Dioxide Anion Gap BUN Creatinine Est Cr Clr Drug Dosing eGFR BUN/Creatinine Ratio Glucose POC Glucose 172 H Estimat Average Glucose Hemoglobin A1c Lactate Calcium Magnesium Total Bilirubin AST ALT Alkaline Phosphatase Troponin I High Sens 70867.1 H* Total Protein Albumin Globulin Albumin/Globulin Ratio Triglycerides Cholesterol LDL Cholesterol, Calc VLDL Cholesterol, Calc HDL Cholesterol Cholesterol/HDL Ratio Procalcitonin 03/11/24 03/11/24 03/11/24 04:04 06:50 08:00 WBC 13.15 H RBC 3.74 L Hgb 9.6 L Hct 29.9 L MCV 79.9 L MCH 25.7 MCHC 32.1 RDW Std Deviation 44.7 RDW Coeff of Michael 15.5 H Plt Count 149 MPV 11.6 Immature Gran % (Auto) 0.6 Neut % (Auto) 80.4 Lymph % (Auto) 11.3 Sevier % (Auto) 7.3 Eos % (Auto) 0.0 Baso % (Auto) 0.4 Neut # (Auto) 10.57 H Lymph # (Auto) 1.49 Sevier # (Auto) 0.96 H Eos # (Auto) 0.00 Baso # (Auto) 0.05 Immature Gran # (Auto) 0.08 APTT 35 H PTT Ratio 1.3 Heparin Anti-Xa, Unfract 0.93 H* 0.86 H* Sodium 135 L Potassium 3.8 Chloride 105 Carbon Dioxide 20 L Anion Gap 10 BUN 31 H Creatinine 1.19 Est Cr Clr Drug Dosing 48.3 eGFR 47.68 BUN/Creatinine Ratio 26.1 H Glucose 123 H POC Glucose 144 H Estimat Average Glucose Hemoglobin A1c Lactate 1.1 Calcium 8.6 Magnesium 1.9 Total Bilirubin 0.5 D AST 91 H ALT 43 Alkaline Phosphatase 62 Troponin I High Sens 21479.0 H* D Total Protein 6.4 Albumin 3.8 Globulin 2.6 Albumin/Globulin Ratio 1.5 Triglycerides 129 Cholesterol 93 LDL Cholesterol, Calc 29 VLDL Cholesterol, Calc 26 HDL Cholesterol 38 Cholesterol/HDL Ratio 2.4 Procalcitonin 11.00 H 03/11/24 03/11/24 03/11/24 09:04 11:43 12:14 WBC RBC Hgb Hct MCV MCH MCHC RDW Std Deviation RDW Coeff of Michael Plt Count MPV Immature Gran % (Auto) Neut % (Auto) Lymph % (Auto) [place] % (Auto) Eos % (Auto) Baso % (Auto) Neut # (Auto) Lymph # (Auto) [place] # (Auto) Eos # (Auto) Baso # (Auto) Immature Gran # (Auto) APTT PTT Ratio Heparin Anti-Xa, Unfract 0.82 H* 0.78 H* Sodium Potassium Chloride Carbon Dioxide Anion Gap BUN Creatinine Est Cr Clr Drug Dosing eGFR BUN/Creatinine Ratio Glucose POC Glucose 222 H Estimat Average Glucose Hemoglobin A1c Lactate Calcium Magnesium Total Bilirubin AST ALT Alkaline Phosphatase Troponin I High Sens Total Protein Albumin Globulin Albumin/Globulin Ratio Triglycerides Cholesterol LDL Cholesterol, Calc VLDL Cholesterol, Calc HDL Cholesterol Cholesterol/HDL Ratio Procalcitonin Diagnostic Findings Telemetry personally reviewed: Atrial fibrillation with heart rate near 100 bpm on average. Blood culture negative x 2 from 03/10/2024. Labs reviewed from 03/11/2024 and notable for improving renal function, normal potassium, chronic anemia, improved leukocytosis, excellent LDL, normal magnesium, elevated AST. Troponin peaked at 17,682 on 03/10/2024. ECG personally reviewed 03/11/2024 at 6:26 AM: Atrial fibrillation [address] depression. Chest x-ray 03/11/2024: Interstitial thickening has improved. Mild left basilar opacity per radiology. Trace bilateral pleural effusions. Medications Administered Current Inpatient Medications Albuterol (Albut/Ipratrop 3mg/0.5mg Neb 3 Ml Vial) 3 ml INH Q4H PRN PRN Reason: Dyspnea Stop: 04/09/24 02:58 Aspirin (Aspirin 81 Mg Ectab) 81 mg PO QAM [facility] Stop: 04/10/24 08:59 Last Admin: 03/11/24 10:08 Dose: 81 mg Cyanocobalamin (Cyanocobalamin 1000 Mcg/Ml Vial) 1,000 mcg IM QAM [facility] Stop: 03/12/24 13:29 Last Admin: 03/11/24 11:29 Dose: 1,000 mcg Dextrose (Dextrose 50% 50 Ml Syringe) 25 - 50 ml IV UD PRN; Protocol PRN Reason: Hypoglycemia Protocol Stop: 04/09/24 02:58 Glucagon (Glucagon For Inj 1 Mg Vial) 1 mg SQ UD PRN; Protocol PRN Reason: Hypoglycemia Protocol Stop: 04/09/24 02:58 Glucose (Glucose 40% Gel 15 Gm Tube) 15 - 30 gm PO UD PRN; Protocol PRN Reason: Hypoglycemia Protocol Stop: 04/09/24 02:58 Glucose (Glucose 10 Tab/Tube) 4 - 8 tab PO UD PRN; Protocol PRN Reason: Hypoglycemia Protocol Stop: 04/09/24 02:58 Pantoprazole Sodium (Protonix) 40 mg in 10 mls @ 5 mls/min IV DAILY [facility] Stop: 04/09/24 08:59 Last Admin: 03/11/24 08:38 Dose: 5 mls/min Heparin Sodium/Dextrose (Heparin Sodium/Dextrose) 25,000 units in 500 mls @ 0 mls/hr IV .Q0M JAIDEN; Protocol Stop: 04/09/24 04:44 Last Titration: 03/10/24 11:51 Dose: 0 units/hr, 0 mls/hr Doxycycline Hyclate 100 mg/ (Dextrose) 100 mls @ 50 mls/hr IV Q12H [facility] Stop: 03/15/24 21:59 Last Infusion: 03/11/24 13:01 Dose: Infused Ceftriaxone Sodium (Rocephin) 2,000 mg in 50 mls @ 100 mls/hr IV QAM [facility] Stop: 03/16/24 09:29 Last Infusion: 03/11/24 11:41 Dose: Infused Insulin Aspart (Insulin Aspart Per Unit Charge) 0 units SC ACHS [facility] Stop: 04/09/24 16:29 Last Admin: 03/11/24 09:18 Dose: 2 units Insulin Glargine (Lantus Per Unit Charge) 5 units SC DAILY [facility] Stop: 04/09/24 13:14 Last Admin: 03/11/24 09:18 Dose: 5 units Insulin Glargine (Lantus Per Unit Charge) 0 units SQ HS [facility]; Protocol Stop: 04/09/24 20:59 Last Admin: 03/10/24 20:40 Dose: Not Given Magnesium Oxide (Magnesium Oxide 400 Mg Tab) 400 mg PO BID [facility] Stop: 04/10/24 20:59 Metoprolol Tartrate (Metoprolol Tartrate 25 Mg Tab) 25 mg PO BID [facility] Stop: 04/10/24 20:59 Miscellaneous (Carbohydrates For Hypoglycemia ) 15 - 30 gm PO UD PRN PRN Reason: Hypoglycemia Protocol Stop: 04/09/24 02:58 Miscellaneous Information (Pharmacy Glycemic Mgmt Consult) 1 each N/A UD PRN; Protocol PRN Reason: Consult Stop: 04/09/24 09:10 Rosuvastatin Calcium (Rosuvastatin Calcium 20 Mg Tab) 20 mg PO [facility] Stop: 04/09/24 08:59 Last Admin: 03/11/24 08:36 Dose: 20 mg Vitamin B Complex (Vitamin B Complex Tab) 1 tab PO [facility] Stop: 04/10/24 08:59 Last Admin: 03/11/24 08:36 Dose: 1 tab PG Care Time/CCT Total # of Minutes Spent Total Time Spent with Patient: Total time spent is greater than 50% in coordination of care (as documented) at patient's floor/unit and/or counseling patient: Coding Level of Care Code 77391 SUB INP/OBS CARE MIN Diagnoses NSTEMI (non-ST elevated myocardial infarction) I21.4 Atrial fibrillation, permanent I48.21 Hypertension I10 Hyperlipidemia E78.5 Mitral regurgitation I34.0 Pneumonia J18.9
[2024-03-11] MEDS: LANTUS PER UNIT CHARGE SC ONE (13:28)
[2024-03-11 16:24] LABS: ANTI-Xa, UFH(UnfractionatedHep 0.71 IU/ml (0.3-0.7)
[2024-03-11] MEDS ORDERED: LANTUS PER UNIT CHARGE SQ SCH (21:00)
[2024-03-11] MEDS: MAGNESIUM OXIDE 400 MG TAB PO SCH (21:34)
[2024-03-11] MEDS: METOPROLOL TARTRATE 25 MG TAB PO SCH (21:35)
[2024-03-12 06:26] LABS: Basophils # (auto) 0.03 K/uL (0.00-0.20); Basophils % (auto) 0.4 %; Eosinophils # (auto) 0.08 K/uL (0.00-0.50); Eosinophils % (auto) 0.9 %; Hematocrit (blood only) 27.4 % (37.0-47.0); Hemoglobin 8.8 g/dl (12.0-16.0); Immature Granulocytes # (auto) 0.04 K/uL (0.01-0.20); Immature Granulocytes % (auto) 0.5 %; Lymphocytes # (auto) 2.08 K/uL (1.20-3.40); Lymphocytes % (auto) 24.5 %; Mean Corpuscular Hemoglobin 25.4 pg (25.0-34.0); Mean Corpuscular Hgb Conc 32.1 g/dL (32.0-36.0); Mean Corpuscular Volume 79.2 fL (80.0-100.0); Mean Platelet Volume 11.7 fL (9.4-12.4); Monocytes # (auto) 0.77 K/uL (0.11-0.59); Monocytes % (auto) 9.1 %; Neutrophils # (auto) 5.49 K/uL (1.40-6.50); Neutrophils % (auto) 64.6 %; Platelet Count 146 K/uL (130-400); RDW Coefficient of Variation 15.5 % (11.5-14.5); RDW Standard Deviation 44.6 fL (36.4-46.3); Red Blood Count 3.46 M/uL (4.20-5.40); White Blood Count 8.49 K/ul (4.8-10.8)
--- NOTE | 2024-03-12 06:28 | Electrocardiogram Report ---
Test Reason : Blood Pressure : */* mmHG Vent. Rate : 104 BPM Atrial Rate : 101 BPM P-R Int : * ms QRS Dur : 86 ms QT Int : 352 ms P-R-T Axes : * 34 32 degrees QTcB Int : 462 ms Atrial fibrillation with rapid ventricular response ST depression, consider subendocardial injury Abnormal ECG When compared with ECG of 10-Mar-2024 03:51, ST less depressed in Anterior leads Confirmed by Lex Tabor ([id number]) on 03/12/2024 6:27:58 AM Referred By: REFERRED SELF Confirmed By: Lex Tabor
[2024-03-12 06:37] LABS: Magnesium 2.1 mg/dl (1.7-2.4)
[2024-03-12 06:55] LABS: Partial Thromboplastin Ratio 1.4; Partial Thromboplastin Time 39 Seconds (21-31)
[2024-03-12 06:59] LABS: ANTI-Xa, UFH(UnfractionatedHep 0.53 IU/ml (0.3-0.7)
--- NOTE | 2024-03-12 08:52 | Hospitalist Progress Note ---
Date of Service March 12, 2024 Assessment & Plan (1) Sepsis due to pneumonia: (2) Acute hypoxic respiratory failure: (3) Pneumonia: (4) Atrial fibrillation with RVR: (5) NSTEMI (non-ST elevated myocardial infarction): (6) Hyperlipidemia: (7) Hypertension: (8) Type 2 diabetes mellitus: (9) EDDA (acute kidney injury): Plan 73-year-old female with past medical history of hypertension, hyperlipidemia, atrial fibrillation on anticoagulation with Eliquis, type 2 diabetes mellitus, history of GI bleed secondary to peptic ulcer disease who presented to the emergency department at [facility] after experiencing a ground-level fall at home when family was unable to pick her up and was found to be in A-fib with RVR with rate of 140 250 at [facility]. She was also found to have saturations in the low 80s on room air initially requiring 5 L of nasal cannula and then was switched to BiPAP and was started on Cardizem drip and given IV Zosyn for multifocal pneumonia and was found to have elevated troponin of 700, was started on heparin infusion and transferred to [facility] #Acute hypoxic respiratory failure Likely multifocal: From multifocal pneumonia, sepsis from pneumonia and NSTEMI Patient is now on 2 L of oxygen via nasal cannula and no longer requiring BiPAP She is currently on room air #Sepsis likely secondary to multifocal pneumonia, present on admission Patient with elevated white count, elevated lactic acid levels, procalcitonin of 15 and EDDA with CTA at [facility] showing multifocal pneumonia Blood cultures sent from [facility]: Results pending Repeat blood cultures from 03/10/2024 have been negative at 48 hours Patient received IV Zosyn at [facility] MRSA screen is negative Continue IV ceftriaxone plus IV doxycycline (day 3) Urine culture was negative White count and lactate levels have improved Procalcitonin is improving #NSTEMI #Atrial fibrillation with RVR #Essential hypertension #Hyperlipidemia #Moderate mitral regurgitation Eliquis has been switched to IV heparin infusion on admission Continue IV heparin infusion Troponin at [facility] noted at 700, troponins have peaked at 17,682 and are downtrending Triglycerides of 129 Cholesterol is 93 HDL is 38 LDL is 29 Continue aspirin plus statin 2D echo shows EF of 55 to 60% with moderate mitral regurgitation Atenolol has been stopped and patient switched to metoprolol: Continue metoprolol 25 mg p.o. twice daily for better rate control Cardiology saw the patient, recommended continuing heparin infusion and scheduled for cardiac cath today #Type 2 diabetes mellitus Metformin held for now A1c 7.6 B12 is 319: Patient on B12 supplementation Pharmacy managing glycemic control #EDDA #Hypomagnesemia EDDA likely in the setting of sepsis Renal function is improving Monitor renal function and electrolytes Avoid nephrotoxic agents including NSAIDs Replace electrolytes as needed #History of GI bleeding secondary to peptic ulcer disease Continue Protonix #Ground-level fall CT of head at [facility] is negative for acute intracranial abnormality CT cervical spine at [facility] shows multilevel cervical spondylosis, negative for acute fracture or dislocation CT abdomen plus pelvis with contrast shows negative for acute intra-abdominal pathology PT/OT consults CODE STATUS: DNR/DNI DVT prophylaxis: Patient on heparin infusion Care plan discussed with patient, nursing staff Daughter Mercedez Huitron ([phone]): message left to update Admission and Anticipated Discharge Date Admission Date: March 10, 2024 Subjective Patient seen and examined Feels much better today Denies any chest pain, fever, chills, cough, shortness of breath, nausea, vomiting, diarrhea, abdominal pain She is scheduled for cardiac cath today Physical Exam Physical Exam: General: No acute distress, talking in full sentences Psych: Awake and alert, oriented to place person and time HEENT: Anicteric sclera, moist oral mucosa CVS: Regular rate and rhythm Lungs: Bilateral air entry, no wheezing noted Abdomen: Soft, nontender, no rebound, no guarding Ext: No lower extremity edema, no calf tenderness : Radford catheter in place Neuro: No focal motor deficits noted Results & Data Results & Data Vital Signs (Past 12 Hours) Vital Signs Temp Pulse Pulse Resp BP Pulse Ox O2 Del Method 03/12/24 07:34 36.6 C 90 18 118/74 97 Room Air 03/12/24 02:50 36.6 C 90 16 119/76 97 Room Air 03/11/24 23:44 36.9 C 76 20 113/69 96 Room Air 03/11/24 23:00 83 Laboratory Results Laboratory Results - last 24 hr 03/11/24 03/11/24 03/11/24 09:04 11:43 12:14 WBC RBC Hgb Hct MCV MCH MCHC RDW Std Deviation RDW Coeff of Michael Plt Count MPV Immature Gran % (Auto) Neut % (Auto) Lymph % (Auto) [place] % (Auto) Eos % (Auto) Baso % (Auto) Neut # (Auto) Lymph # (Auto) [place] # (Auto) Eos # (Auto) Baso # (Auto) Immature Gran # (Auto) APTT PTT Ratio Heparin Anti-Xa, Unfract 0.82 H* 0.78 H* POC Glucose 222 H Magnesium 03/11/24 03/11/24 03/11/24 15:22 16:53 20:14 WBC RBC Hgb Hct MCV MCH MCHC RDW Std Deviation RDW Coeff of Michael Plt Count MPV Immature Gran % (Auto) Neut % (Auto) Lymph % (Auto) [place] % (Auto) Eos % (Auto) Baso % (Auto) Neut # (Auto) Lymph # (Auto) [place] # (Auto) Eos # (Auto) Baso # (Auto) Immature Gran # (Auto) APTT PTT Ratio Heparin Anti-Xa, Unfract 0.71 H* POC Glucose 179 H 216 H Magnesium 03/11/24 03/12/24 03/12/24 23:44 05:56 08:03 WBC 8.49 RBC 3.46 L Hgb 8.8 L Hct 27.4 L MCV 79.2 L MCH 25.4 MCHC 32.1 RDW Std Deviation 44.6 RDW Coeff of Michael 15.5 H Plt Count 146 MPV 11.7 Immature Gran % (Auto) 0.5 Neut % (Auto) 64.6 Lymph % (Auto) 24.5 Hawkins % (Auto) 9.1 Eos % (Auto) 0.9 Baso % (Auto) 0.4 Neut # (Auto) 5.49 Lymph # (Auto) 2.08 Hawkins # (Auto) 0.77 H Eos # (Auto) 0.08 Baso # (Auto) 0.03 Immature Gran # (Auto) 0.04 APTT 39 H PTT Ratio 1.4 Heparin Anti-Xa, Unfract 0.50 0.53 POC Glucose 93 Magnesium 2.1 Diagnostic Findings Chest X-Ray 03/11/24 09:27 XR chest 2V PA/lateral CLINICAL HISTORY: PNEUMONIA VS CHF COMPARISON STUDY: Chest radiograph March 10, 2024. Chest CT March 09, 2024. FINDINGS: Cardiomegaly is again noted. Mediastinal contours are stable. There are trace bilateral pleural effusions. Mild left basilar opacity is present. Interstitial thickening has improved. IMPRESSION: 1. Interval resolution of pulmonary edema. 2. Mild left basilar opacity which could reflect atelectasis or a focus of pneumonia. 3. Trace bilateral pleural effusions. ACT 112: Negative or not required by law. Electronically signed by: Francisco Burnett M.D. 03/11/2024 11:15 AM PG Care Time/CCT Total # of Minutes Spent Total Time Spent with Patient: Total time spent is greater than 50% in coordination of care (as documented) at patient's floor/unit and/or counseling patient: Coding Level of Care Code 19295 SUB INP/OBS CARE 2/35MIN Diagnoses Sepsis due to pneumonia J18.9; A41.9 Acute hypoxic respiratory failure J96.01 Pneumonia J18.9 Atrial fibrillation with RVR I48.91 NSTEMI (non-ST elevated myocardial infarction) I21.4 Hyperlipidemia E78.5 Hypertension I10 Type 2 diabetes mellitus E11.9 EDDA (acute kidney injury) N17.9
[2024-03-12 09:36] LABS: BUN Creatinine Ratio 32.7 (10-20); Calcium 8.8 mg/dl (8.6-10.3); Creatinine Clr Calc Pharmacy 55.8 ml/min; Potassium 3.5 mmol/L (3.5-5.1)
[2024-03-12 09:53] LABS: Troponin I High Sensitivity 3513.6 pg/ml (0-14)
[2024-03-12] MEDS: POTASSIUM CHLORIDE CRTAB 20 MEQ TABCR PO STA (10:29)
--- NOTE | 2024-03-12 10:50 | Pre Anesthesia Assessment ---
Date of Service March 12, 2024 Pre Sedation Assessment Vital Signs Temp Pulse Pulse Resp BP Pulse Ox O2 Del Method 03/12/24 07:34 36.6 C 90 18 118/74 97 Room Air 03/12/24 02:50 36.6 C 90 16 119/76 97 Room Air 03/11/24 23:44 36.9 C 76 20 113/69 96 Room Air 03/11/24 23:00 83 03/11/24 19:45 Room Air 03/11/24 19:30 36.3 C L 86 19 110/70 98 Room Air 03/11/24 16:00 87 03/11/24 15:43 36.9 C 89 18 116/68 97 Room Air 03/11/24 11:16 36.8 C 97 H 18 111/68 95 Room Air Cardiovascular + irregularly irregular Respiratory normal respiratory effort, lungs clear to auscultation Pre-Sedation Airway Assessment Smoking Status: Never smoker Mallampati Class: III ASA: ASA3 NPO Status Date of Last Intake of Fluids: 03/12/24 Time of Last Intake of Fluids: 09:00 Last Oral Intake of Fluids Comment: sips with meds Date of Last Intake of Solid Food: 03/11/24 Time of Last Intake of Solid Foods: 18:00 Procedure Planning Contraindications for Sedation: none Current Medications Reviewed: Yes Notes The planned sedation has been discussed with the patient. Informed Consent was obtained. I have identified the patient, determined the appropriateness of sedation and have assessed the patient immediately prior to the procedure. All medicine(s) and interventions are by my order.
[2024-03-12] MEDS: NITROGLYCERIN/D5W 100MCG/ML 20ML SYR ONE (11:12)
[2024-03-12] MEDS: niCARdipine 2,000 MCG/20 ML SYR ONE (11:12)
[2024-03-12] MEDS: fentaNYL citrate PF 100 MCG/2 ML VIAL ONE (11:27)
[2024-03-12] MEDS: HEPARIN (PORCINE) 1000 UNIT/ML 10 ML (CATH LAB USE ONLY) ONE (11:28)
[2024-03-12] MEDS: MIDAZOLAM HCL 1 MG/ML 2ML VIAL ONE (11:28)
[2024-03-12] MEDS: OPTIRAY 350 ONE (11:28)
--- NOTE | 2024-03-12 11:37 | Post Operative Brief Note ---
Cardiology Brief Post Op Date of Surgery March 12, 2024 Pre & Post Diagnosis Operation Date: 03/12/24 11:00 <No data on this case meets the specified criteria> Procedure Coronary angiography and left heart cath Biological Science Technician Fish Lex Tabor MD [employer] Member Allyson Estimated Blood Loss 10 Findings See Below Mild nonobstructive CAD. See full report for details. Complications none
--- NOTE | 2024-03-12 11:50 | Post Anesthesia Assessment ---
Date of Service March 12, 2024 Post Sedation Assessment Vital Signs Temp Pulse Pulse Resp BP Pulse Ox O2 Del Method 03/12/24 11:38 36.6 C 89 16 113/61 94 Room Air 03/12/24 10:51 36.6 C 91 H 18 145/87 H 96 Room Air 03/12/24 07:34 36.6 C 90 18 118/74 97 Room Air 03/12/24 02:50 36.6 C 90 16 119/76 97 Room Air 03/11/24 23:44 36.9 C 76 20 113/69 96 Room Air 03/11/24 23:00 83 03/11/24 19:45 Room Air 03/11/24 19:30 36.3 C L 86 19 110/70 98 Room Air 03/11/24 16:00 87 03/11/24 15:43 36.9 C 89 18 116/68 97 Room Air Recovery Score Activity: Moves 4 extremities Respiration: Deep Breath/Cough Circulation: +/-20% PreAnes Value Consciousness: Fully Awake Oxygen Saturation: > 92% On Room Air Post Anesthesia Score: 10 Discharge Sedation Level of Care: Fast Track Phase II Post Sedation Plan On clinical assessment, the patient appears to have tolerated the sedation without complications. Patient is recovering as anticipated. Patient will continue to be monitored by nursing and may be discharged when sedation discharge criteria are met per below protocol. Upon Completions of procedure up to 15 minutes continue every 5 minute vital signs and the P.A.R. score; then discharge to a Phase I or Fast Track to Phase II per the following guidelines: * Discharge Patient to appropriate Phase II area if PAR is 8 or greater or return to pre- procedure baseline. The post - procedure orders will be as directed. * If PAR score is less than 8 or not return to pre-procedure baseline then patient will follow Phase I monitoring till PAR is reached for Phase II. The Phase I may be done in procedure room or may call to secure a Phase I area. * If naloxone or flumazenil are used for reversal, hold in Phase I for continued monitoring from when last reversal dose was given for a minimum of 60 minutes or longer pending the nurse and/or physician discretion of patient condition before discharge to Phase II. Please call the Sedation Physician to re-evaluate and complete post-note for discharge to Phase II area. Do NOT discharge from procedure sedation or Phase 1 until post- sedation evaluation note is complete by procedure /sedation MD Sedation Discharge Instructions to be given to the patient at discharge to home.
[2024-03-12] MEDS: LANTUS PER UNIT CHARGE SC SCH (12:45)
--- NOTE | 2024-03-12 15:16 | Pharmacy Report ---
Pharmacy Glycemic Short Note 2 - Date of Service March 12, 2024 - Glycemic Short BSG Results (Last 24 hours): 03/11/24 03/11/24 03/12/24 16:53 20:14 05:56 Glucose 81 POC Glucose 179 H 216 H 03/12/24 03/12/24 08:03 12:12 Glucose POC Glucose 93 162 H OUTPATIENT ANTIDIABETIC REGIMEN: * metformin 500mg PO daily * HbA1c pending (03/10/24) ASSESSMENT: 03/12 * A total of 38 units of insulin were given yesterday (20 were basal) * Fasting BSG was 93mg/dL. 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 * Lunch BSG was 162mg/dL and patient was ordered a diet so 5 units of lantus were given and continued daily. A lantus scale (0-10 units based on BSG) was also ordered at HS. * Bolus parameters were tightened at lunch yesterday due to elevated BSG readings (lunch was 222mg/dL) and an additional 10 units of lantus was ordered at that time. * Since patient is now eating, bolus parameters will be continued as previously ordered for now. 03/10 * Rosamaria is a 73 YOF admitted with Afib and a history of type 2 diabetes mellitus. Pharmacy has been consulted to assist with glycemic management while inpatient. * Fasting BSG this AM around 300. NovoLog initiated at a weight based stress at a weight based stress of 3. BSGs come down some, but still elevated, will give a small dose of Lantus and add a scale at bedtime if still elevated. f * She is on IV doxycycline and ceftriaxone (in D5W) as well as a heparin drip and diltiazem drip (both mixed in D5W). She is currently NPO. PLAN FOR INPATIENT GLYCEMIC CONTROL: * Hold outpatient oral diabetes medications * Basal insulin * Lantus 5 units SQ daily * Lantus 0-10 units SQ HS (BSG < 140 hold; BSG 140-180 give 5 units; BSG > 180 give 10 units) * Bolus insulin * NovoLog per scale ACHS or Q6hrs while NPO * Goal Range: Low 110 mg/dL - High 140 mg/dL * Correction Factor: 20 mg/dL/unit * Nutritional / Prandial insulin per carb ratio of 1 unit per 8 grams CHO consumed
--- NOTE | 2024-03-12 15:28 | Cardiac Catheterization ---
[facility] Data: [employer] Cardiac Status Clinical evaluation leading to the procedure CAD Presenation: No Sxs, No angina Anginal Classification: No Symptoms Heart Failure: No Cardiogenic Shock within 24 Hours: No Cardiac Arrest within 24 Hours: No Imaging Studies Past 6 Months: Yes Stress Studies Past 6 Months: No STEMI OR Non-STEMI Symptom Onset Date: 03/10/24 Coronary Anatomy Dominant: Right Diagnostic Physicians Name: Lex Tabor MD Closure Device Percutaneous Entry Location: Radial Closure Device: Radial Band Recommendations: Management Recommendatons Cardiac Cath Procedure Full Procedure Date March 12, 2024 Pre-Procedure Diagnosis Pre-Procedure Diagnosis: Non STEMI AUC Score AUC Score: 7 Post-Procedure Diagnosis Post-Procedure Diagnosis: Mild CAD Procedure(s) Performed Procedure(s) Performed: Coronary Angiography and Left Heart Cath Errand Runner Lex Tabor MD Bowling Alley Refinisher(s) Allyson Estimated Blood Loss Estimated Blood Loss: < 20 ml Medication(s) Medication(s): Fentanyl, Heparin, Lidocaine 1%, Nicardipine and Versed Summary of Findings Procedures: 1. Coronary angiography 2. Left heart catheterization 3. Moderate sedation Indication: Ms Huitron is a pleasant 73-year-old female with a history significant for atrial fibrillation, peptic ulcer disease, type 2 diabetes, hypertension, and dyslipidemia who presented with multifocal pneumonia/sepsis with acute hypoxic respiratory failure and NSTEMI with a peak high-sensitivity troponin of 17,682. Her echo demonstrated normal LV systolic function but akinesis of the basal inferolateral wall with hypokinesis of the basal inferior and basal inferoseptal wall segments. Coronary angiography: 1. Left main: No significant CAD. 2. Left anterior descending: Ostial LAD 20%. Mid LAD significant calcifications noted. Small D1. MEHREEN-3 flow throughout the LAD. 3. Circumflex: Mid circumflex 10%. Small OM1 and large branching OM 2. 4. Right coronary artery: RCA is moderate in caliber and dominant. Proximal RCA 30%. Luminal irregularities in the mid RCA. PDA and PL without significant CAD. Left heart catheterization: 1. Left ventriculography was not performed. 2. LVEDP 16 mmHg. 3. No aortic stenosis. Moderate sedation: 1. Sedation start time: 11:15 AM 2. Sedation end time: 11:28 AM Impression: 1. Mild nonobstructive CAD. 2. No aortic stenosis. 3. Mildly elevated LVEDP. Plan: 1. Risk factor modification. Hemodynamics Rest Ao:: 120/56 Final Ao: 111/56 LV: 105/7/16 Recommendations Recommendations: Management Recommendatons Specimens Specimens: None Radiation Exposure (mGy) 770 mGy. Fluoro time 1.9 min. Contrast (mls) 40 ml Procedural Complication(s) None Disposition PCU I attest to the content of the Intraoperative Record and any orders documented therein. Any exceptions are noted below. [facility] Procedure Codes Cardiac Catheterization Procedure 1: Cardiovascular Cath Procedures: 94778 Coronaries and LHC (+/-LV) Moderate Sedation Procedure 1: Sedation/Anesthesia: 44356 Mod Sedation by the same physician;Init15 Min Child Age 5 & Up PG Care Time/CCT Total # of Minutes Spent Total Time Spent with Patient: Total time spent is greater than 50% in coordination of care (as documented) at patient's floor/unit and/or counseling patient:
--- NOTE | 2024-03-12 15:34 | Cardiology Progress Note ---
Date of Service March 12, 2024 Assessment & Plan (1) NSTEMI (non-ST elevated myocardial infarction): (2) Atrial fibrillation, permanent: (3) Hypertension: (4) Hyperlipidemia: (5) Mitral regurgitation: (6) Pneumonia: (7) CAD (coronary artery disease): Plan ASSESSMENT/PLAN: 1. NSTEMI: No angina but developed acute respiratory distress and has significantly elevated troponin, peaking at 17,682. Given no obstructive CAD noted on coronary angiography and history of peptic ulcer disease requiring blood transfusion, can discontinue aspirin. Continue high intensity statin therapy. Continue beta-terry. 2. CAD: Nonobstructive. Risk factor modification. Can discontinue aspirin given gastric ulcers with significant GI bleed in the past. Is chronically on anticoagulation therapy given atrial fibrillation. Continue beta-terry. Continue high intensity statin therapy. 3. Hypertension: Blood pressure is well-controlled. On atenolol 50 mg at home. Currently on metoprolol. Can resume ARB as she takes valsartan at home. 4. Dyslipidemia: Continue high intensity statin therapy. Excellent LDL. 5. Mitral regurgitation: Nonsevere. Can monitor in the outpatient setting for surveillance purposes. 6. Atrial fibrillation: Permanent. Likely tachycardic initially while in respiratory distress. Heart rate reasonably controlled currently. Continue beta-terry for rate control strategy. Continue anticoagulation for stroke risk reduction. Can resume Eliquis in place of heparin from a cardiology perspective. 7. Pneumonia: Multifocal pneumonia reported by hospitalist service at outside facility. Leukocytosis improved. As per primary hospitalist service. Breathing much improved. 8. Disposition: Cardiology will sign off at this time. She wishes to follow in the [place] office upon discharge as she anticipates it will be difficult to travel to [place]. Will arrange appointment with Dr. Franklin in the [place] office. Plan of care communicated with Dr. Teague of the primary hospitalist service. Admission and Anticipated Discharge Date Admission Date: March 10, 2024 Subjective She denies chest pain. She denies shortness of breath, syncope, near syncope, palpitations, or edema. She was unaccompanied. She underwent cardiac catheterization earlier today. Physical Exam Physical Exam: Gen.: No acute distress. Alert. HEENT: Anicteric sclera. Neck: No JVD. Cardiac: Irregularly irregular. Normal heart rate. Normal S1-S2. 1/6 systolic murmur. Pulmonary: Decreased breath sounds at the bases otherwise clear to auscultation bilaterally. Abdomen: Soft, nontender, nondistended, with normoactive bowel sounds. No bruits noted. Extremities: 2+ radial pulses bilaterally. 2+ posterior tibialis pulses bilaterally. No edema. No cyanosis. Results & Data Vital Signs (Past 12 Hours) Vital Signs Temp Pulse Resp BP Pulse Ox O2 Del Method 03/12/24 12:52 83 16 102/66 97 Room Air 03/12/24 12:22 36.5 C 86 16 112/69 96 Room Air 03/12/24 11:52 89 16 111/65 95 Room Air 03/12/24 11:38 36.6 C 89 16 113/61 94 Room Air 03/12/24 11:37 36.7 C 91 H 16 93/58 L 97 Room Air 03/12/24 10:51 36.6 C 91 H 18 145/87 H 96 Room Air 03/12/24 07:34 36.6 C 90 18 118/74 97 Room Air Intake & Output 03/10/24 03/11/24 03/12/24 03/13/24 06:59 06:59 06:59 06:59 Intake Total 0 / 0 1088.5 / 1088.5 1102.05 / 1102.05 345.55 / 345.55 Output Total 450 / 450 670 / 670 650 / 650 300 / 300 Balance -450 / -450 418.5 / 418.5 452.05 / 452.05 45.55 / 45.55 Weight 201 lb 4.513 oz 193 lb 5.526 oz 193 lb 5.526 oz Laboratory Results Laboratory Results - last 24 hr 03/11/24 03/11/24 03/11/24 15:22 16:53 20:14 WBC RBC Hgb Hct MCV MCH MCHC RDW Std Deviation RDW Coeff of Michael Plt Count MPV Immature Gran % (Auto) Neut % (Auto) Lymph % (Auto) [place] % (Auto) Eos % (Auto) Baso % (Auto) Neut # (Auto) Lymph # (Auto) [place] # (Auto) Eos # (Auto) Baso # (Auto) Immature Gran # (Auto) APTT PTT Ratio Activ Coag Time Kaolin Heparin Anti-Xa, Unfract 0.71 H* Sodium Potassium Chloride Carbon Dioxide Anion Gap BUN Creatinine Est Cr Clr Drug Dosing eGFR BUN/Creatinine Ratio Glucose POC Glucose 179 H 216 H Calcium Magnesium Troponin I High Sens 03/11/24 03/12/24 03/12/24 23:44 05:56 08:03 WBC 8.49 RBC 3.46 L Hgb 8.8 L Hct 27.4 L MCV 79.2 L MCH 25.4 MCHC 32.1 RDW Std Deviation 44.6 RDW Coeff of Michael 15.5 H Plt Count 146 MPV 11.7 Immature Gran % (Auto) 0.5 Neut % (Auto) 64.6 Lymph % (Auto) 24.5 [place] % (Auto) 9.1 Eos % (Auto) 0.9 Baso % (Auto) 0.4 Neut # (Auto) 5.49 Lymph # (Auto) 2.08 [place] # (Auto) 0.77 H Eos # (Auto) 0.08 Baso # (Auto) 0.03 Immature Gran # (Auto) 0.04 APTT 39 H PTT Ratio 1.4 Activ Coag Time Kaolin Heparin Anti-Xa, Unfract 0.50 0.53 Sodium 136 Potassium 3.5 Chloride 104 Carbon Dioxide 21 Anion Gap 11 BUN 33 H Creatinine 1.01 Est Cr Clr Drug Dosing 55.8 eGFR 58.05 BUN/Creatinine Ratio 32.7 H Glucose 81 POC Glucose 93 Calcium 8.8 Magnesium 2.1 Troponin I High Sens 3513.6 H* D 03/12/24 03/12/24 11:21 12:12 WBC RBC Hgb Hct MCV MCH MCHC RDW Std Deviation RDW Coeff of Michael Plt Count MPV Immature Gran % (Auto) Neut % (Auto) Lymph % (Auto) [place] % (Auto) Eos % (Auto) Baso % (Auto) Neut # (Auto) Lymph # (Auto) [place] # (Auto) Eos # (Auto) Baso # (Auto) Immature Gran # (Auto) APTT PTT Ratio Activ Coag Time Kaolin 153 H Heparin Anti-Xa, Unfract Sodium Potassium Chloride Carbon Dioxide Anion Gap BUN Creatinine Est Cr Clr Drug Dosing eGFR BUN/Creatinine Ratio Glucose POC Glucose 162 H Calcium Magnesium Troponin I High Sens Diagnostic Findings PersonalTelemetry reviewed: Atrial fibrillation with adequate heart rate control. Labs reviewed and notable for normal potassium, stable renal function, anemia. Cardiac cath 03/12/2024: Coronary angiography: 1. Left main: No significant CAD. 2. Left anterior descending: Ostial LAD 20%. Mid LAD significant calcifications noted. Small D1. MEHREEN-3 flow throughout the LAD. 3. Circumflex: Mid circumflex 10%. Small OM1 and large branching OM 2. 4. Right coronary artery: RCA is moderate in caliber and dominant. Proximal RCA 30%. Luminal irregularities in the mid RCA. PDA and PL without significant CAD. Left heart catheterization: 1. Left ventriculography was not performed. 2. LVEDP 16 mmHg. 3. No aortic stenosis. Medications Administered Current Inpatient Medications Albuterol (Albut/Ipratrop 3mg/0.5mg Neb 3 Ml Vial) 3 ml INH Q4H PRN PRN Reason: Dyspnea Stop: 04/09/24 02:58 Aspirin (Aspirin 81 Mg Ectab) 81 mg PO QAM JAIDEN Stop: 04/10/24 08:59 Last Admin: 03/12/24 08:30 Dose: 81 mg Dextrose (Dextrose 50% 50 Ml Syringe) 25 - 50 ml IV UD PRN; Protocol PRN Reason: Hypoglycemia Protocol Stop: 04/09/24 02:58 Glucagon (Glucagon For Inj 1 Mg Vial) 1 mg SQ UD PRN; Protocol PRN Reason: Hypoglycemia Protocol Stop: 04/09/24 02:58 Glucose (Glucose 40% Gel 15 Gm Tube) 15 - 30 gm PO UD PRN; Protocol PRN Reason: Hypoglycemia Protocol Stop: 04/09/24 02:58 Glucose (Glucose 10 Tab/Tube) 4 - 8 tab PO UD PRN; Protocol PRN Reason: Hypoglycemia Protocol Stop: 04/09/24 02:58 Pantoprazole Sodium (Protonix) 40 mg in 10 mls @ 5 mls/min IV DAILY JAIDEN Stop: 04/09/24 08:59 Last Admin: 03/12/24 08:08 Dose: 5 mls/min Heparin Sodium/Dextrose (Heparin Sodium/Dextrose) 25,000 units in 500 mls @ 11 mls/hr IV .Q24H JAIDEN; Protocol Stop: 04/09/24 04:44 Last Admin: 03/12/24 08:10 Dose: Not Given Doxycycline Hyclate 100 mg/ (Dextrose) 100 mls @ 50 mls/hr IV Q12H JAIDEN Stop: 03/15/24 21:59 Last Infusion: 03/12/24 12:37 Dose: Infused Ceftriaxone Sodium (Rocephin) 2,000 mg in 50 mls @ 100 mls[facility] Stop: 03/16/24 09:29 Last Infusion: 03/12/24 09:25 Dose: Infused Insulin Aspart (Insulin Aspart Per Unit Charge) 0 units SC ACHS [facility] Stop: 04/09/24 16:29 Last Admin: 03/12/24 12:43 Dose: 6 units Insulin Glargine (Lantus Per Unit Charge) 0 units SQ HS [facility]; Protocol Stop: 04/09/24 20:59 Last Admin: 03/11/24 21:33 Dose: 5 units Insulin Glargine (Lantus Per Unit Charge) 5 units SC DAILY [facility] Stop: 04/11/24 12:29 Last Admin: 03/12/24 12:45 Dose: 5 units Magnesium Oxide (Magnesium Oxide 400 Mg Tab) 400 mg PO BID [facility] Stop: 04/10/24 20:59 Last Admin: 03/12/24 08:30 Dose: 400 mg Metoprolol Tartrate (Metoprolol Tartrate 25 Mg Tab) 25 mg PO BID [facility] Stop: 04/10/24 20:59 Last Admin: 03/12/24 08:30 Dose: 25 mg Miscellaneous (Carbohydrates For Hypoglycemia ) 15 - 30 gm PO UD PRN PRN Reason: Hypoglycemia Protocol Stop: 04/09/24 02:58 Miscellaneous Information (Pharmacy Glycemic Mgmt Consult) 1 each N/A UD PRN; Protocol PRN Reason: Consult Stop: 04/09/24 09:10 Rosuvastatin Calcium (Rosuvastatin Calcium 20 Mg Tab) 20 mg [facility] Stop: 04/09/24 08:59 Last Admin: 03/12/24 08:30 Dose: 20 mg Vitamin B Complex (Vitamin B Complex Tab) 1 tab PO [facility] Stop: 04/10/24 08:59 Last Admin: 03/12/24 08:30 Dose: 1 tab PG Care Time/CCT Total # of Minutes Spent Total Time Spent with Patient: Total time spent is greater than 50% in coordination of care (as documented) at patient's floor/unit and/or counseling patient: Coding Level of Care Code 51098 SUB INP/OBS CARE 3/50MIN Diagnoses NSTEMI (non-ST elevated myocardial infarction) I21.4 Atrial fibrillation, permanent I48.21 Hypertension I10 Hyperlipidemia E78.5 Mitral regurgitation I34.0 Pneumonia J18.9 CAD (coronary artery disease) I25.10
[2024-03-12] MEDS: DOXYCYCLINE HYCLATE 100 MG CAP PO SCH (22:06)
[2024-03-12] MEDS: APIXABAN 5 MG TABLET PO SCH (22:06)
[2024-03-13 05:53] LABS: Hematocrit (blood only) 25.5 % (37.0-47.0); Hemoglobin 8.4 g/dl (12.0-16.0); Mean Corpuscular Hemoglobin 25.8 pg (25.0-34.0); Mean Corpuscular Hgb Conc 32.9 g/dL (32.0-36.0); Mean Corpuscular Volume 78.5 fL (80.0-100.0); Mean Platelet Volume 12.3 fL (9.4-12.4); Platelet Count 146 K/uL (130-400); RDW Standard Deviation 43.5 fL (36.4-46.3); Red Blood Count 3.25 M/uL (4.20-5.40); White Blood Count 6.23 K/ul (4.8-10.8)
[2024-03-13 06:03] LABS: BUN Creatinine Ratio 31.5 (10-20); Calcium 8.6 mg/dl (8.6-10.3); Creatinine Clr Calc Pharmacy 63.3 ml/min; Magnesium 1.9 mg/dl (1.7-2.4); Potassium 3.9 mmol/L (3.5-5.1)
--- NOTE | 2024-03-13 09:42 | Hospitalist Progress Note ---
Date of Service March 13, 2024 Assessment & Plan (1) Sepsis due to pneumonia: (2) Acute hypoxic respiratory failure: (3) Pneumonia: (4) Atrial fibrillation with RVR: (5) NSTEMI (non-ST elevated myocardial infarction): (6) Hyperlipidemia: (7) Hypertension: (8) Type 2 diabetes mellitus: (9) EDDA (acute kidney injury): Plan 73-year-old female with past medical history of hypertension, hyperlipidemia, atrial fibrillation on anticoagulation with Eliquis, type 2 diabetes mellitus, history of GI bleed secondary to peptic ulcer disease who presented to the emergency department at [facility] after experiencing a ground-level fall at home when family was unable to pick her up and was found to be in A-fib with RVR with rate of 140 250 at [facility]. She was also found to have saturations in the low 80s on room air initially requiring 5 L of nasal cannula and then was switched to BiPAP and was started on Cardizem drip and given IV Zosyn for multifocal pneumonia and was found to have elevated troponin of 700, was started on heparin infusion and transferred to [facility] #Acute hypoxic respiratory failure Likely multifocal: From multifocal pneumonia, sepsis from pneumonia and NSTEMI Patient is now on 2 L of oxygen via nasal cannula and no longer requiring BiPAP She is currently on room air #Sepsis likely secondary to multifocal pneumonia, present on admission Patient with elevated white count, elevated lactic acid levels, procalcitonin of 15 and EDDA with CTA at [facility] showing multifocal pneumonia Blood cultures sent from [facility]: Results pending: Preliminary report per nursing staff is growing Streptococcus: Awaiting hardcopy report via fax from [facility] Repeat blood cultures from 03/10/2024 have been negative at 48 hours Patient received IV Zosyn at [facility] MRSA screen is negative Continue IV ceftriaxone plus po doxycycline (day 4): Duration of therapy will be based on blood culture report from [facility] Urine culture was negative White count and lactate levels have improved Procalcitonin is improving #NSTEMI #Atrial fibrillation with RVR #Essential hypertension #Hyperlipidemia #Moderate mitral regurgitation #Nonobstructive coronary artery disease Cardiology following the patient Troponin at [facility] noted at 700, troponins have peaked at 17,682 and are downtrending Triglycerides of 129 Cholesterol is 93 HDL is 38 LDL is 29 Continue statin 2D echo shows EF of 55 to 60% with moderate mitral regurgitation Atenolol has been stopped and patient switched to metoprolol: Continue Toprol-XL 50 mg p.o. daily Patient underwent cardiac cath on 03/12/2024 which showed nonobstructive coronary disease She was initially anticoagulated with IV heparin and started on aspirin 81 mg daily Cardiology saw the patient today and has discontinued aspirin given no obstructive coronary disease noted on coronary angiogram and patient with history of peptic ulcer disease requiring blood transfusions in the past. Cardiology has recommended continuing high intensity statin therapy, continue beta-terry and continuing apixaban 5 mg p.o. twice daily As per cardiology can resume ARB valsartan: Will start valsartan 80 mg p.o. daily Monitor vital signs Cardiology will arrange appointment with Dr. Franklin in [place] office as patient wishes to follow-up in [place] #Type 2 diabetes mellitus Metformin held for now A1c 7.6 B12 is 319: Patient on B12 supplementation Pharmacy managing glycemic control #EDDA #Hypomagnesemia EDDA likely in the setting of sepsis Renal function has improved and is at baseline Monitor renal function and electrolytes Avoid nephrotoxic agents including NSAIDs Replace electrolytes as needed #History of GI bleeding secondary to peptic ulcer disease Continue Protonix #Ground-level fall CT of head at [facility] is negative for acute intracranial abnormality CT cervical spine at [facility] shows multilevel cervical spondylosis, negative for acute fracture or dislocation CT abdomen plus pelvis with contrast shows negative for acute intra-abdominal pathology PT/OT consults CODE STATUS: DNR/DNI DVT prophylaxis: Patient on apixaban Discontinue Radford catheter today PT/OT have recommended acute rehab: Patient initially was declining rehab but she is now agreeable and has a bed offer from [facility] Discharge planning to [facility] rehab based on blood culture report from [facility] [address] prior to admission to determine duration of antibiotic therapy Care plan discussed with patient, nursing staff Daughter Mercedez Huitron ([phone]) updated on the phone Admission and Anticipated Discharge Date Admission Date: March 10, 2024 Subjective Patient seen and examined She underwent cardiac cath yesterday which showed nonobstructive coronary artery disease Overall feels much better Denies any fever, chills, cough, nausea, vomiting, diarrhea, abdominal pain Constipated for over 5 days Physical Exam Physical Exam: General: No acute distress, talking in full sentences Psych: Awake and alert, oriented to place person and time HEENT: Anicteric sclera, moist oral mucosa CVS: Regular rate and rhythm Lungs: Bilateral air entry, no wheezing noted Abdomen: Soft, nontender, no rebound, no guarding Ext: No lower extremity edema, no calf tenderness : Radford catheter in place Results & Data Results & Data Vital Signs (Past 12 Hours) Vital Signs Temp Pulse Pulse Resp BP Pulse Ox O2 Del Method 03/13/24 07:54 79 03/13/24 07:34 36.3 C L 78 18 119/71 97 Room Air 03/13/24 03:53 36.6 C 80 19 123/75 100 Room Air 03/12/24 23:21 36.5 C 83 18 111/68 98 Room Air Laboratory Results Laboratory Results - last 24 hr 03/12/24 03/12/24 03/12/24 05:56 11:21 12:12 WBC RBC Hgb Hct MCV MCH MCHC RDW Std Deviation RDW Coeff of Michael Plt Count MPV Activ Coag Time Kaolin 153 H Sodium Potassium Chloride Carbon Dioxide Anion Gap BUN Creatinine Est Cr Clr Drug Dosing eGFR BUN/Creatinine Ratio Glucose POC Glucose 162 H Calcium Magnesium Iron TIBC Transferrin Transferrin % Sat Troponin I High Sens 3513.6 H* D 03/12/24 03/12/24 03/13/24 16:57 19:26 05:30 WBC 6.23 RBC 3.25 L Hgb 8.4 L Hct 25.5 L MCV 78.5 L MCH 25.8 MCHC 32.9 RDW Std Deviation 43.5 RDW Coeff of Michael 15.0 H Plt Count 146 MPV 12.3 Activ Coag Time Kaolin Sodium 135 L Potassium 3.9 Chloride 106 Carbon Dioxide 21 Anion Gap 8 BUN 28 H Creatinine 0.89 Est Cr Clr Drug Dosing 63.3 eGFR 67.57 BUN/Creatinine Ratio 31.5 H Glucose 84 POC Glucose 120 H 124 H Calcium 8.6 Magnesium 1.9 Iron 13 L TIBC 312 Transferrin 223 Transferrin % Sat 4 L Troponin I High Sens 03/13/24 07:33 WBC RBC Hgb Hct MCV MCH MCHC RDW Std Deviation RDW Coeff of Michael Plt Count MPV Activ Coag Time Kaolin Sodium Potassium Chloride Carbon Dioxide Anion Gap BUN Creatinine Est Cr Clr Drug Dosing eGFR BUN/Creatinine Ratio Glucose POC Glucose 96 Calcium Magnesium Iron TIBC Transferrin Transferrin % Sat Troponin I High Sens PG Care Time/CCT Total # of Minutes Spent Total Time Spent with Patient: Total time spent is greater than 50% in coordination of care (as documented) at patient's floor/unit and/or counseling patient: Coding Level of Care Code 34601 SUB INP/OBS CARE 2/35MIN Diagnoses Sepsis due to pneumonia J18.9; A41.9 Acute hypoxic respiratory failure J96.01 Pneumonia J18.9 Atrial fibrillation with RVR I48.91 NSTEMI (non-ST elevated myocardial infarction) I21.4 Hyperlipidemia E78.5 Hypertension I10 Type 2 diabetes mellitus E11.9 EDDA (acute kidney injury) N17.9
[2024-03-13] MEDS: POLYETHYLENE (MIRALAX) 17 GM PACK PO SCH (10:27)
[2024-03-13] MEDS: IRON POLYSACCHARIDE COMPLEX 150 MG CAPSULE PO SCH (10:27)
[2024-03-13] MEDS: MAGNESIUM HYDROXIDE SUSP 30 ML UDC PO ONE (10:27)
[2024-03-13] MEDS: METOPROLOL SUCC 50MG EXT REL TAB PO SCH (10:28)
[2024-03-13] MEDS: SENNA 8.6 MG TAB PO ONE (10:28)
[2024-03-13] MEDS: MAGNESIUM OXIDE 400 MG TAB PO SCH (12:38)
[2024-03-13] MEDS: SENNA 8.6 MG TAB PO SCH (21:03)
[2024-03-14] MEDS: MELATONIN 3 MG TAB PO PRN (00:36)
--- NOTE | 2024-03-14 05:53 | Electrocardiogram Report ---
Test Reason : Blood Pressure : */* mmHG Vent. Rate : 92 BPM Atrial Rate : 96 BPM P-R Int : * ms QRS Dur : 90 ms QT Int : 396 ms P-R-T Axes : * -22 0 degrees QTcB Int : 489 ms Atrial fibrillation Nonspecific ST abnormality Prolonged QT Abnormal ECG When compared with ECG of 11-Mar-2024 06:26, Questionable change in QRS axis Confirmed by Lex Tabor ([id number]) on 03/14/2024 5:52:51 AM Referred By: REFERRED SELF Confirmed By: Lex Tabor
[2024-03-14 06:36] LABS: Hematocrit (blood only) 27.1 % (37.0-47.0); Hemoglobin 8.7 g/dl (12.0-16.0); Mean Corpuscular Hemoglobin 25.5 pg (25.0-34.0); Mean Corpuscular Hgb Conc 32.1 g/dL (32.0-36.0); Mean Corpuscular Volume 79.5 fL (80.0-100.0); Mean Platelet Volume 11.9 fL (9.4-12.4); Platelet Count 162 K/uL (130-400); RDW Standard Deviation 43.5 fL (36.4-46.3); Red Blood Count 3.41 M/uL (4.20-5.40); White Blood Count 6.61 K/ul (4.8-10.8)
[2024-03-14 06:55] LABS: Albumin Globulin Ratio 1.2 (0.9-2); Albumin Level 3.3 gm/dl (3.4-5.0); BUN Creatinine Ratio 21.3 (10-20); Bilirubin,Total 0.4 mg/dl (0.2-1.0); C Reactive Protein 6.1 mg/dl (0-0.5); Calcium 8.8 mg/dl (8.6-10.3); Creatinine Clr Calc Pharmacy 63.1 ml/min; Globulin 2.7 gm/dl (2.5-4.0); Magnesium 1.9 mg/dl (1.7-2.4); Potassium 3.9 mmol/L (3.5-5.1)
[2024-03-14] MEDS: PANTOprazole 40 MG TAB PO SCH (08:32)
[2024-03-14] MEDS: VALSARTAN 80 MG TAB PO SCH (08:32)
--- NOTE | 2024-03-14 09:56 | Pharmacy Report ---
Pharmacy Glycemic Short Note 2 - Date of Service March 14, 2024 - Glycemic Short BSG Results (Last 24 hours): 03/13/24 03/13/24 03/13/24 12:00 17:01 20:30 Glucose POC Glucose 133 H 111 H 129 H 03/14/24 03/14/24 06:09 07:53 Glucose 82 POC Glucose 101 H OUTPATIENT ANTIDIABETIC REGIMEN: * Metformin 500 mg PO daily * HbA1c: 7.6% (03/10/24) ASSESSMENT: 03/14: * Tessa received 14 units of insulin yesterday, 5 of which were basal. BSGs were: 82-980-676-129 mg/dL. * Fasting BSG remains well controlled at 101 mg/dL this AM. No adjustment to AM basal dose but after not receiving scaled HS dose for the last 48 hours, will discontinue HS basal insulin altogether. * No changes necessary to bolus regimen. * Remains on Ceftriaxone and Doxycycline for pulmonary infection. 03/12: * A total of 38 units of insulin were given yesterday (20 were basal) * Fasting BSG was 93mg/dL. 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 * Lunch BSG was 162mg/dL and patient was ordered a diet so 5 units of lantus were given and continued daily. A lantus scale (0-10 units based on BSG) was also ordered at HS. * Bolus parameters were tightened at lunch yesterday due to elevated BSG readings (lunch was 222mg/dL) and an additional 10 units of lantus was ordered at that time. * Since patient is now eating, bolus parameters will be continued as previously ordered for now. 03/10: * Rosamaria is a 73 YOF admitted with Afib and a history of type 2 diabetes mellitus. Pharmacy has been consulted to assist with glycemic management while inpatient. * Fasting BSG this AM around 300. NovoLog initiated at a weight based stress at a weight based stress of 3. BSGs come down some, but still elevated, will give a small dose of Lantus and add a scale at bedtime if still elevated. * She is on IV doxycycline and ceftriaxone (in D5W) as well as a heparin drip and diltiazem drip (both mixed in D5W). She is currently NPO. PLAN FOR INPATIENT GLYCEMIC CONTROL: * Hold outpatient oral diabetes medications * Basal insulin * Lantus 5 units SC daily * Bolus insulin * NovoLog per scale ACHS or Q6hrs while NPO * Goal Range: Low 110 mg/dL - High 140 mg/dL * Correction Factor: 20 mg/dL/unit * Nutritional / Prandial insulin per carb ratio of 1 unit per 8 grams CHO consumed
--- NOTE | 2024-03-14 12:27 | Hospitalist Progress Note ---
Date of Service March 14, 2024 Assessment & Plan (1) Sepsis due to pneumonia: (2) Acute hypoxic respiratory failure: (3) Pneumonia: (4) Atrial fibrillation with RVR: (5) NSTEMI (non-ST elevated myocardial infarction): (6) Hyperlipidemia: (7) Hypertension: (8) Type 2 diabetes mellitus: (9) EDDA (acute kidney injury): Plan 73-year-old female with past medical history of hypertension, hyperlipidemia, atrial fibrillation on anticoagulation with Eliquis, type 2 diabetes mellitus, history of GI bleed secondary to peptic ulcer disease who presented to the emergency department at [facility] after experiencing a ground-level fall at home when family was unable to pick her up and was found to be in A-fib with RVR with rate of 140 250 at [facility]. She was also found to have saturations in the low 80s on room air initially requiring 5 L of nasal cannula and then was switched to BiPAP and was started on Cardizem drip and given IV Zosyn for multifocal pneumonia and was found to have elevated troponin of 700, was started on heparin infusion and transferred to [facility] #Acute hypoxic respiratory failure Likely multifocal: From multifocal pneumonia, sepsis from pneumonia and NSTEMI Patient is now on 2 L of oxygen via nasal cannula and no longer requiring BiPAP She is currently on room air #Sepsis likely secondary to multifocal pneumonia, present on admission Patient with elevated white count, elevated lactic acid levels, procalcitonin of 15 and EDDA with CTA at [facility] showing multifocal pneumonia Blood cultures sent from [facility]: Results report via fax from [facility] shows 2/2 streoptoccus dysgalactiae from 03/10. ID consulted for antibiotic length recommendations. Repeat blood cultures from 03/10/2024 have been negative at 48 hours Patient received IV Zosyn at [facility] MRSA screen is negative Continue IV ceftriaxone plus po doxycycline (day 4): Duration of therapy will be based on blood culture report from [facility] Urine culture was negative White count and lactate levels have improved Procalcitonin is improving #NSTEMI #Atrial fibrillation with RVR #Essential hypertension #Hyperlipidemia #Moderate mitral regurgitation #Nonobstructive coronary artery disease Cardiology following the patient Troponin at [facility] noted at 700, troponins have peaked at 17,682 and are downtrending Triglycerides of 129 Cholesterol is 93 HDL is 38 LDL is 29 Continue statin 2D echo shows EF of 55 to 60% with moderate mitral regurgitation Atenolol has been stopped and patient switched to metoprolol: Continue Toprol-XL 50 mg p.o. daily Patient underwent cardiac cath on 03/12/2024 which showed nonobstructive coronary disease She was initially anticoagulated with IV heparin and started on aspirin 81 mg daily Cardiology saw the patient today and has discontinued aspirin given no obstructive coronary disease noted on coronary angiogram and patient with history of peptic ulcer disease requiring blood transfusions in the past. Cardiology has recommended continuing high intensity statin therapy, continue beta-terry and continuing apixaban 5 mg p.o. twice daily As per cardiology can resume ARB valsartan: Will start valsartan 80 mg p.o. daily Monitor vital signs Cardiology will arrange appointment with Dr. Franklin in [place] office as patient wishes to follow-up in [place] #Type 2 diabetes mellitus Metformin held for now A1c 7.6 B12 is 319: Patient on B12 supplementation Pharmacy managing glycemic control #EDDA #Hypomagnesemia EDDA likely in the setting of sepsis Renal function has improved and is at baseline Monitor renal function and electrolytes Avoid nephrotoxic agents including NSAIDs Replace electrolytes as needed #History of GI bleeding secondary to peptic ulcer disease Continue Protonix #Ground-level fall CT of head at [facility] is negative for acute intracranial abnormality CT cervical spine at [facility] shows multilevel cervical spondylosis, negative for acute fracture or dislocation CT abdomen plus pelvis with contrast shows negative for acute intra-abdominal pathology PT/OT consults CODE STATUS: DNR/DNI DVT prophylaxis: Patient on apixaban Discontinue Radford catheter today PT/OT have recommended acute rehab: Patient initially was declining rehab but she is now agreeable and has a bed offer from [facility] Discharge planning to [facility] rehab based on blood culture report from [facility] prior to admission to determine duration of antibiotic therapy Care plan discussed with patient, nursing staff Daughter Mercedez Huitron ([phone]) updated on the phone Admission and Anticipated Discharge Date Admission Date: March 10, 2024 Subjective No events overnight, pt resting comfortably in bed. Review of Systems Review of Systems: CONST: Negative for fever, body aches and chills. HENT: Negative for neck pain/stiffness, headache, congestion, sore throat, swelling. EYES: Negative for discharge/pain or vision changes. RESP: Negative for cough/hemoptysis and shortness of breath. CV: Negative chest pain, difficulty breathing, palpitations. ABD: Negative pain, nausea, vomiting. : Negative increase frequency, dysuria, blood in urine or stool. MUSC: Negative for muscle aches, edema. SKIN: Negative rash, lesions/sores. NEURO: Negative headache, dizziness, weakness. Physical Exam Physical Exam: GENERAL APPEARANCE NAD, activity normal for age, well developed/ well nourished, no cyanosis, pallor, or diaphoresis. EYES lids/conjunctiva normal. EARS/NOSE/THROAT Mucous membranes moist, nares normal, lips/teeth normal uvula midline without oral pharyngeal erythema, exudate or swelling TMs normal bilaterally. No lymphangitis/lymphedema. HEAD/NECK normocephalic atraumatic, no facial trauma, neck is supple. RESPIRATORY respiratory effort normal, speaks in full sentences, no tripod position, no accessory muscle use. Lungs clear to auscultation without rhonchi, wheezes, rales CARDIAC Regular rate and rhythm, no edema. ABDOMINAL Soft, ND/NT. No evidence of fluid wave. No pulsatile masses on exam, rebound tenderness, Rodriguez sign or pain over Mcburney's point. MUSCLES/EXTREMITIES No abnormal range of motion, no swelling. SKIN Warm, pink and dry. No rashes, dermatoses, petechiae or lesions. NEUROLOGICAL Speech is clear and appropriate. Normal level of consciousness. Gait and coordination are normal. 5/5 strength in all extremities. PSYCH Normal mood and affect. Judgement/competence is appropriate Results & Data Results & Data Vital Signs (Past 12 Hours) Vital Signs Temp Pulse Resp BP Pulse Ox O2 Del Method 03/14/24 11:34 36.4 C L 86 18 131/69 97 Room Air 03/14/24 07:17 36.3 C L 82 18 130/71 97 Room Air 03/14/24 02:44 36.4 C L 74 18 140/64 98 Room Air PG Care Time/CCT Total # of Minutes Spent Total Time Spent with Patient: Total time spent is greater than 50% in coordination of care (as documented) at patient's floor/unit and/or counseling patient: Coding Level of Care Code 97033 SUB INP/OBS CARE 2/35MIN Diagnoses Sepsis due to pneumonia J18.9; A41.9 Acute hypoxic respiratory failure J96.01 Pneumonia J18.9 Atrial fibrillation with RVR I48.91 NSTEMI (non-ST elevated myocardial infarction) I21.4 Hyperlipidemia E78.5 Hypertension I10 Type 2 diabetes mellitus E11.9 EDDA (acute kidney injury) N17.9
--- NOTE | 2024-03-14 16:19 | Infectious Disease Consult ---
Date of Consultation March 14, 2024 Assessment & Plan (1) Streptococcal bacteremia: (2) Pneumonia: (3) NSTEMI (non-ST elevated myocardial infarction): (4) Type 2 diabetes mellitus: Plan 73yo F with h/o afib, T2DM, closed sacral fracture, PUD with GIB, HTN who initially presented on 03/09 to [facility] ED after sustaining a ground- level fall with c/o weakness and family c/f confusion and inability to care for herself. She was found to be in afib with RVR with hypoxia requiring bipap. Subsequently transferred to [facility] 03/10. Here she was afebrile, was placed on NC. Initial labs with WBC 21.66, Cr 1.50. AST 59, ALT wnl. Troponin elevated (up to 17,000), elevated BNP. PCT 15.10. UA with 0-5 WBC. RPP neg. MRSA screen neg. CXR with congestion bilaterally, no consolidation. TTE technically difficult, moderate MR, mild AR. She had a CTA chest at [facility] that showed diffuse GGO throughout the lungs bl with a slight LLL predominance, no lobar consolidation, c/f multifocal PNA. She had been given zosyn at OSH. She was admitted with Afib with RVR and NSTEMI. Abx changed to CTX and doxycycline. CXR on 03/11 with interval resolution of pulmonary edema, mild left basilar opacity which could reflect atelectasis or a focus of PNA. S/p cardiac cath on 03/12 and noted to have mild nonobstructive CAD. BCx from [facility] returned with Streptococcus dysgalactiae. ID consulted 03/14. WBC is improving with downtrending PCT. Bacteremia at outside facility likely related to lung findings on CT chest of multifocal PNA. CXR here had some mild left basilar opacity. BCx here are negative. She did have a TTE that didnt mention vegetation but was limited. However, no known intracardiac prostheses or other hardware, based on chart review. Given how quickly the BCx cleared, I have lower suspicion for intravascular infection. I will stop doxycycline and continue CTX. Would check if [facility] ran susceptibility testing. If sensitive to PCN, then she can be discharged on high dose amoxicillin. I do think that she should have repeat BCx after she completes abx to ensure clearance (specifically given the NSTEMI and limited TTE). # Bacteremia 2/2 Strep dysgalactiae # Multifocal PNA on CT at outside hospital # NSTEMI # H/o T2DM - Mary stopped doxycycline - continue CTX 2g IV daily - please confirm with [facility] regarding susceptibility testing of Strep dysgalactiae - if sensitive to penicillin, then on discharge, abx can be changed to amoxicil kenzie 1g PO three times daily to complete a 14 day course starting from 03/10, end 03/23 - please have her repeat BCx 1 week after completing abx (around Mar 30) ID will continue to follow. If questions or concerns, contact via [employer] or Infectious Disease Call Center . Ruthy Rodriguez MD [facility], Division of Infectious Diseases Consultation Information This patient recommendation is based on a telemedicine consult request which was completed asynchronously through chart review and information provided by the primary physician. The patient was not seen or examined today. The evaluation is consultative in nature and all patient care and treatment decisions can either be accepted or rejected by the patient's primary hospital-based treating physician using their own independent medical judgment for their patient. Automobile Or Truck Rental Dispatcher contact information: Please call [employer] [facility] Call Center . (Phone Number For Physician Use Only) Time Spent Reviewing Chart: 31+ minutes History of Present Illness Reason for Consultation: strep bacteremia Attending Physician: Waqar Valencia MD History of Present Illness 73yo F with h/o afib, T2DM, closed sacral fracture, PUD with GIB, HTN who initially presented on 03/09 to [facility] ED after sustaining a ground- level fall with c/o weakness and family c/f confusion and inability to care for herself. She was found to be in afib with RVR with hypoxia requiring bipap. Subsequently transferred to [facility] 03/10. Here she was afebrile, was placed on NC. Initial labs with WBC 21.66, Cr 1.50. AST 59, ALT wnl. Troponin elevated (up to 17,000), elevated BNP. PCT 15.10. UA with 0-5 WBC. RPP neg. MRSA screen neg. CXR with congestion bilaterally, no consolidation. TTE technically difficult, moderate MR, mild AR. She was admitted with Afib with RVR and NSTEMI. She had a CTA at [facility] that showed multifocal PNA and had been given zosyn. Abx changed to CTX and doxycycline at [facility]. CXR on 03/11 with interval resolution of pulmonary edema, mild left basilar opacity which could reflect atelectasis or a focus of PNA. S/p cardiac cath on 03/12 and noted to have mild nonobstructive CAD. BCx from [facility] returned with Streptococcus dysgalactiae. ID consulted 03/14. WBC is improving with downtrending PCT. No telepresenter available this afternoon. Allergies Allergy/AdvReac Type Severity Reaction Status Date / Time No Known Allergies Allergy Unverified 03/12/24 10:56 Home Medications Medication Instructions Recorded Confirmed Type apixaban 5 mg tablet (Eliquis) 5 mg PO BID 09/15/19 03/10/24 History atenolol 50 mg tablet (Tenormin) 50 mg PO DAILY 09/15/19 03/10/24 History simvastatin 20 mg tablet (Zocor) 20 mg PO HS 09/15/19 03/10/24 History escitalopram oxalate 10 mg tablet 10 mg PO DAILY 03/10/24 03/10/24 History metformin 500 mg tablet 500 mg PO BID 03/10/24 03/10/24 History omeprazole 40 mg capsule,delayed 40 mg PO DAILYBB 03/10/24 03/10/24 History release valsartan 160 1 tab PO DAILY 03/10/24 03/10/24 History mg-hydrochlorothiazide 25 mg tablet Patient History Social History Smoking Status: Never smoker Second Hand Exposure: No; Do You Dip or Chew Tobacco: No; Hx Alcohol Use: No Hx Substance Use: No Preferred Language: Korean Communication Ability: Effective Irrigation Manager Required: No Beliefs That Will Affect Care: None Current Living Situation: Family Current Living Situation Comment: lives with daughter Feels Safe at Home: Yes Assistive Devices: Cane and Walker Results & Data Vital Signs (Past 12 Hours) Vital Signs Temp Pulse Resp BP Pulse Ox O2 Del Method 03/14/24 15:21 36.7 C 91 H 18 132/67 97 Room Air 03/14/24 11:34 36.4 C L 86 18 131/69 97 Room Air 03/14/24 07:17 36.3 C L 82 18 130/71 97 Room Air Laboratory Results Labs reviewed. Diagnostic Findings Imaging reviewed.
--- NOTE | 2024-03-15 09:13 | Infectious Disease Progress Nt ---
Date of Service March 15, 2024 Assessment & Plan (1) Cellulitis of left leg: (2) Streptococcal bacteremia: (3) Pneumonia: (4) NSTEMI (non-ST elevated myocardial infarction): (5) Type 2 diabetes mellitus: Plan 73yo F with h/o afib, T2DM, closed sacral fracture, PUD with GIB, HTN who initially presented on 03/09 to [facility] ED after sustaining a ground- level fall with c/o weakness and family c/f confusion and inability to care for herself. She was found to be in afib with RVR with hypoxia requiring bipap. Subsequently transferred to [facility] 03/10. Here she was afebrile, was placed on NC. Initial labs with WBC 21.66, Cr 1.50. AST 59, ALT wnl. Troponin elevated (up to 17,000), elevated BNP. PCT 15.10. UA with 0-5 WBC. RPP neg. MRSA screen neg. CXR with congestion bilaterally, no consolidation. TTE technically difficult, moderate MR, mild AR. She had a CTA chest at [facility] that showed diffuse GGO throughout the lungs bl with a slight LLL predominance, no lobar consolidation, c/f multifocal PNA. She had been given zosyn at OSH. She was admitted with Afib with RVR and NSTEMI. Abx changed to CTX and doxycycline. CXR on 03/11 with interval resolution of pulmonary edema, mild left basilar opacity which could reflect atelectasis or a focus of PNA. S/p cardiac cath on 03/12 and noted to have mild nonobstructive CAD. BCx from [facility] returned with Streptococcus dysgalactiae. ID consulted 03/14. WBC is improving with downtrending PCT. Patient has erythema of left leg. I did add back doxy and do see vanc was started. Either should be sufficient for c/f cellulitis so Mary kept on vanc and stopped doxycycline. She does have negative MRSA screen but since this developed on just CTX (did not get doxy since 03/12), I think including MRSA coverage is reasonable. Continue CTX for the bacteremia. I do think that she should have repeat BCx after she completes abx to ensure clearance (specifically given the NSTEMI and limited TTE). # Bacteremia 2/2 Strep dysgalactiae # Multifocal PNA on CT at outside hospital # LLE cellulitis # NSTEMI # H/o T2DM - continue vancomycin for cellulitis - continue CTX 2g IV daily - please confirm with [facility] regarding susceptibility testing of Strep dysgalactiae - for bacteremia: if Strep is sensitive to penicillin, then on discharge, abx can be changed to amoxicillin 1g PO three times daily to complete a 14 day course starting from 03/10, end 03/23 - for cellulitis: if she improves on current regimen, then vanc can be changed to doxycycline - please have her repeat BCx 1 week after completing abx (around Mar 30) ID will continue to follow. If questions or concerns, contact via [employer] or Infectious Disease Call Center . Ruthy Rodriguez MD [facility], Division of Infectious Diseases Admission and Anticipated Discharge Date Admission Date: March 10, 2024 Subjective Subsequent visit was provided via telemedicine using two-way real-time interactive telecommunication between the patient and the telemedicine provider. For the duration of the visit, the provider was performing the assessment from a different facility than the patient. This includesuse of bluetooth stethoscope forauscultationperformed by the telepresenter that the telemedicine provider can hear if described in the physical exam. Hygiene Coordinator contact information: Please call [facility] Call Center . (Phone Number For Physician Use Only) After establishing a telemedicine visit, patient was: Patient was verified with two unique identifiers, Patient/authorized rep acknowledged consent and understanding and Gave permission to continue telehealth session Time Spent with Patient: Subsequent => 55 min Patient seen and examined. States she no longer feels short of breath. Has occasional cough with clear sputum production. No chest pain. Last night, she did develop pain and redness on her left leg. No abdominal pain, vomiting. Had a laxative with resulting diarrhea. She has hardware in right knee, no pain or swelling. No back pain or other joint pains. Physical Exam Physical Exam: General: Awake, alert, no acute distress HEENT: NC/AT, EOMI, mmm Neck: supple, no LAD Lungs: CTA bl, no w/c/r Heart: nl S1/S2 Abdomen: soft, NT/ND Ext: left leg with erythema, warmth, and redness of lower leg, right knee without swelling or redness Results & Data Vital Signs (Past 12 Hours) Vital Signs Temp Pulse Pulse Resp BP BP Pulse Ox 03/15/24 07:37 36.4 C L 87 16 149/79 H 97 03/15/24 03:05 36.5 C 98 H 18 149/72 H 97 03/14/24 23:00 81 03/14/24 22:53 36.6 C 74 18 143/85 H 98 O2 Del Method 03/15/24 07:37 Room Air 03/15/24 03:05 Room Air 03/14/24 23:00 03/14/24 22:53 Room Air Laboratory Results Labs reviewed. Diagnostic Findings Imaging reviewed.
[2024-03-15] MEDS: DOXYCYCLINE HYCLATE 100 MG CAP PO SCH (09:21)
[2024-03-15] MEDS ORDERED: VANCOMYCIN CONSULT ACTIVE PRN (10:29)
--- NOTE | 2024-03-15 10:34 | Hospitalist Progress Note ---
Date of Service March 15, 2024 Assessment & Plan (1) Pneumonia: Plan: -Results report via fax from [facility] shows 2/2 streoptoccus dysgalactiae from 03/10. -ID consulted for antibiotic length recommendations appreciated. -amoxicillin 1gram TID till 03/23 if susceptibility testing sensitive to PCN (2) Atrial fibrillation with RVR: Plan: -rate controlled -continue eliquis (3) NSTEMI (non-ST elevated myocardial infarction): Plan: -no obstructive coronary disease noted on coronary angiogram -Cardiology has recommended continuing high intensity statin therapy, continue beta-terry and continuing apixaban 5 mg p.o. twice daily (4) Hyperlipidemia: (5) Hypertension: Plan: -BP stable (6) Type 2 diabetes mellitus: Plan: Pharmacy managing glycemic control (7) EDDA (acute kidney injury): Plan: EDDA likely in the setting of sepsis Renal function has improved and is at baseline Plan Pt complaining of Left leg redness and pain. Will get US and start vancomycin for treatment of left leg cellulitis. CODE STATUS: DNR/DNI DVT prophylaxis: Patient on apixaban PT/OT have recommended acute rehab: Patient initially was declining rehab but she is now agreeable and has a bed offer from [facility] Discharge planning to [facility] rehab Care plan discussed with patient, nursing staff Admission and Anticipated Discharge Date Admission Date: March 10, 2024 Subjective Pt complaining of Left leg redness and pain. Will get US and start vancomycin for treatment of cellulits. Review of Systems Review of Systems: CONST: Negative for fever, body aches and chills. HENT: Negative for neck pain/stiffness, headache, congestion, sore throat, swelling. EYES: Negative for discharge/pain or vision changes. RESP: Negative for cough/hemoptysis and shortness of breath. CV: Negative chest pain, difficulty breathing, palpitations. ABD: Negative pain, nausea, vomiting. : Negative increase frequency, dysuria, blood in urine or stool. MUSC: Negative for muscle aches, edema. SKIN: Negative rash, lesions/sores. NEURO: Negative headache, dizziness, weakness. Physical Exam Physical Exam: GENERAL APPEARANCE NAD, activity normal for age, well developed/ well nourished, no cyanosis, pallor, or diaphoresis. EYES lids/conjunctiva normal. EARS/NOSE/THROAT Mucous membranes moist, nares normal, lips/teeth normal uvula midline without oral pharyngeal erythema, exudate or swelling TMs normal bilaterally. No lymphangitis/lymphedema. HEAD/NECK normocephalic atraumatic, no facial trauma, neck is supple. RESPIRATORY respiratory effort normal, speaks in full sentences, no tripod position, no accessory muscle use. Lungs clear to auscultation without rhonchi, wheezes, rales CARDIAC Regular rate and rhythm, no edema. ABDOMINAL Soft, ND/NT. No evidence of fluid wave. No pulsatile masses on exam, rebound tenderness, Rodriguez sign or pain over Mcburney's point. MUSCLES/EXTREMITIES No abnormal range of motion, no swelling. SKIN Warm, pink and dry. Left leg with erythema and tenderness. NEUROLOGICAL Speech is clear and appropriate. Normal level of consciousness. Gait and coordination are normal. 5/5 strength in all extremities. PSYCH Normal mood and affect. Judgement/competence is appropriate Results & Data Results & Data Vital Signs (Past 12 Hours) Vital Signs Temp Pulse Pulse Resp BP BP Pulse Ox 03/15/24 07:37 36.4 C L 87 16 149/79 H 97 03/15/24 03:05 36.5 C 98 H 18 149/72 H 97 03/14/24 23:00 81 03/14/24 22:53 36.6 C 74 18 143/85 H 98 O2 Del Method 03/15/24 07:37 Room Air 03/15/24 03:05 Room Air 03/14/24 23:00 03/14/24 22:53 Room Air PG Care Time/CCT Total # of Minutes Spent Total Time Spent with Patient: Total time spent is greater than 50% in coordination of care (as documented) at patient's floor/unit and/or counseling patient: Coding Level of Care Code 76187 SUB INP/OBS CARE 2/35MIN Diagnoses Pneumonia J18.9 Atrial fibrillation with RVR I48.91 NSTEMI (non-ST elevated myocardial infarction) I21.4 Hyperlipidemia E78.5 Hypertension I10 Type 2 diabetes mellitus E11.9 EDDA (acute kidney injury) N17.9
--- NOTE | 2024-03-15 11:13 | Pharmacy Report ---
Pharmacy PK ABX Note - Date of Service March 15, 2024 - Assessment and Plan Assessment 73 year old F receiving vancomycin for treatment of left leg cellulitis. Pertinent microbiologic data includes: blood cxs from 03/10 TD. Patient is also being treated for PNA and currently on ceftriaxone as well. Blood cultures from [facility] showing 2/2 Streptococcus dysgalactiae per attending's progress note. ID has been consulted and following patient. Day 1 for vancomycin. Plan Vancomycin * Loading dose: 2000 mg IV x 1 * Maintenance dose: 1000 mg IV every 12 hours * Regimen is predicted to achieve target AUC/MARK of 400-600 mg/L.hr * Levels will be ordered if continued beyond the 48 hour empiric duration. Pharmacy will continue to follow and will adjust dose/frequency as necessary. Thank you. Pharmacy has transitioned to AUC monitoring for vancomycin. AUC/MARK is the preferred PK/PD target and is associated with decreased risk of nephrotoxicity compared to traditional trough targets.
[2024-03-15] MEDS: VANCOMYCIN HCL 2,000 MG in SODIUM CHLORIDE 0.9% 500 ML IV ONE (11:32)
--- NOTE | 2024-03-15 13:53 | Ultrasound Report ---
LEFT LOWER EXTREMITY VENOUS DOPPLER HISTORY: Acute pain of the left lower leg r/o DVT COMPARISON STUDY: None. FINDINGS: There is normal compressibility, flow, and augmentation within the left lower extremity teresita p venous system. IMPRESSION: No DVT within the left lower extremity. ACT 112: Negative or not required by law. Electronically signed by: Esvin Robles M.D. 03/15/2024 1:52 PM
[2024-03-15] MEDS: VANCOMYCIN HCL 1,000 MG/270 ML BAG IV SCH (20:52)
[2024-03-16 06:44] LABS: Creatinine Clr Calc Pharmacy 80.5 ml/min
--- NOTE | 2024-03-16 10:14 | Pharmacy Report ---
Pharmacy Glycemic Sign Off Nt - Date of Service March 16, 2024 - Assessment & Plan ASSESSMENT: * Pharmacy was consulted by Dr Teague on 03/10 for glycemic control and to write orders per [facility] inpatient glycemic control protocol. * Major changes made by pharmacy to antidiabetic regimen include: * added low dose basal, novolog scale * Patient has been receiving/requiring <20 units of insulin per day for adequate glycemic control * BSGs have been <160 * Regimen has only required minor adjustments over the past 48hrs to achieve this level of control * Do not anticipate further changes in patient status that would quickly deteriorate glycemic control (i.e. patient to be NPO for upcoming procedure, steroids tapering, starting tube feedings, etc). * Please see recommendations for outpatient antidiabetic regimen below. PLAN FOR INPATIENT GLYCEMIC CONTROL: No changes needed to current regimen. * Continue basal insulin with Lantus 5 units daily * Continue NovoLog per scale ACHS/Q6hrs while NPO * Goal range = 110-140 mg/dl * CF = 30 mg/dl/unit * CR = 1 unit for ever 11 g CHO consumed * Pharmacy is signing off of glycemic consult and will no longer be making adjustments to inpatient regimen. Please feel free to re-consult if needed. Thank you.
--- NOTE | 2024-03-16 11:24 | Hospitalist Progress Note ---
Date of Service March 16, 2024 Assessment & Plan (1) Pneumonia: Plan: -Results report via fax from [facility] shows 2/2 streoptoccus dysgalactiae from 03/10. -ID consulted for antibiotic length recommendations appreciated. -amoxicillin 1gram TID till 03/23 if susceptibility testing sensitive to PCN (2) Cellulitis of left leg: Plan: -started on vancomycin -ID input appreciated -LE Doppler negative for DVT (3) Atrial fibrillation with RVR: Plan: -rate controlled -continue eliquis (4) NSTEMI (non-ST elevated myocardial infarction): Plan: -no obstructive coronary disease noted on coronary angiogram -Cardiology has recommended continuing high intensity statin therapy, continue beta-terry and continuing apixaban 5 mg p.o. twice daily (5) Hyperlipidemia: (6) Hypertension: Plan: -BP stable (7) Type 2 diabetes mellitus: Plan: Pharmacy managing glycemic control (8) EDDA (acute kidney injury): Plan: EDDA likely in the setting of sepsis Renal function has improved and is at baseline Plan Pt complaining of Left leg redness and pain. Will get US and start vancomycin for treatment of left leg cellulitis. CODE STATUS: DNR/DNI DVT prophylaxis: Patient on apixaban PT/OT have recommended acute rehab: Patient initially was declining rehab but she is now agreeable and has a bed offer from [facility] Discharge planning to [facility] rehab once left leg cellulitis resolves Care plan discussed with patient, nursing staff Admission and Anticipated Discharge Date Admission Date: March 10, 2024 Subjective Pt still with redness in left leg, but does state the pain has slightly improved. Review of Systems Review of Systems: CONST: Negative for fever, body aches and chills. HENT: Negative for neck pain/stiffness, headache, congestion, sore throat, swelling. EYES: Negative for discharge/pain or vision changes. RESP: Negative for cough/hemoptysis and shortness of breath. CV: Negative chest pain, difficulty breathing, palpitations. ABD: Negative pain, nausea, vomiting. : Negative increase frequency, dysuria, blood in urine or stool. MUSC: Negative for muscle aches, edema. SKIN: Negative rash, lesions/sores. NEURO: Negative headache, dizziness, weakness. Physical Exam Physical Exam: GENERAL APPEARANCE NAD, activity normal for age, well developed/ well nourished, no cyanosis, pallor, or diaphoresis. EYES lids/conjunctiva normal. EARS/NOSE/THROAT Mucous membranes moist, nares normal, lips/teeth normal uvula midline without oral pharyngeal erythema, exudate or swelling TMs normal bilaterally. No lymphangitis/lymphedema. HEAD/NECK normocephalic atraumatic, no facial trauma, neck is supple. RESPIRATORY respiratory effort normal, speaks in full sentences, no tripod position, no accessory muscle use. Lungs clear to auscultation without rhonchi, wheezes, rales CARDIAC Regular rate and rhythm, no edema. ABDOMINAL Soft, ND/NT. No evidence of fluid wave. No pulsatile masses on exam, rebound tenderness, Rodriguez sign or pain over Mcburney's point. MUSCLES/EXTREMITIES No abnormal range of motion, no swelling. SKIN Warm, pink and dry. Left leg with erythema and tenderness. NEUROLOGICAL Speech is clear and appropriate. Normal level of consciousness. Gait and coordination are normal. 5/5 strength in all extremities. PSYCH Normal mood and affect. Judgement/competence is appropriate Results & Data Results & Data Vital Signs (Past 12 Hours) Vital Signs Temp Pulse Pulse Resp BP Pulse Ox O2 Del Method 03/16/24 10:46 36.7 C 88 20 140/81 97 Room Air 03/16/24 08:00 36.6 C 96 H 16 138/75 98 Room Air 03/16/24 07:48 81 03/16/24 03:06 36.8 C 78 14 127/56 L 97 Room Air PG Care Time/CCT Total # of Minutes Spent Total Time Spent with Patient: Total time spent is greater than 50% in coordination of care (as documented) at patient's floor/unit and/or counseling patient: Coding Level of Care Code 50975 SUB INP/OBS CARE 2/35MIN Diagnoses Pneumonia J18.9 Cellulitis of left leg L03.116 Atrial fibrillation with RVR I48.91 NSTEMI (non-ST elevated myocardial infarction) I21.4 Hyperlipidemia E78.5 Hypertension I10 Type 2 diabetes mellitus E11.9 EDDA (acute kidney injury) N17.9
[2024-03-16] MEDS ORDERED: Nursing to Pharmacy Communication SCH (11:45)
[2024-03-16] MEDS: oxyCODONE/ACETAMINOPHEN 5mg/325mg TAB PO PRN (12:06)
--- NOTE | 2024-03-16 12:10 | Infectious Disease Progress Nt ---
Date of Service March 16, 2024 Assessment & Plan (1) Cellulitis of left leg: (2) Streptococcal bacteremia: (3) Pneumonia: (4) NSTEMI (non-ST elevated myocardial infarction): (5) Type 2 diabetes mellitus: Plan 73yo F with h/o afib, T2DM, closed sacral fracture, PUD with GIB, HTN who initially presented on 03/09 to [facility] ED after sustaining a ground- level fall with c/o weakness and family c/f confusion and inability to care for herself. She was found to be in afib with RVR with hypoxia requiring bipap. Subsequently transferred to [facility] 03/10. Here she was afebrile, was placed on NC. Initial labs with WBC 21.66, Cr 1.50. AST 59, ALT wnl. Troponin elevated (up to 17,000), elevated BNP. PCT 15.10. UA with 0-5 WBC. RPP neg. MRSA screen neg. CXR with congestion bilaterally, no consolidation. TTE technically difficult, moderate MR, mild AR. She had a CTA chest at [facility] that showed diffuse GGO throughout the lungs bl with a slight LLL predominance, no lobar consolidation, c/f multifocal PNA. She had been given zosyn at OSH. She was admitted with Afib with RVR and NSTEMI. Abx changed to CTX and doxycycline. CXR on 03/11 with interval resolution of pulmonary edema, mild left basilar opacity which could reflect atelectasis or a focus of PNA. S/p cardiac cath on 03/12 and noted to have mild nonobstructive CAD. BCx from [facility] returned with Streptococcus dysgalactiae. ID consulted 03/14. WBC is improving with downtrending PCT, afebrile. Left leg with improvement in pain, still with similar redness and swelling. Will keep on IV abx today. If she is improving over the weekend, can be changed to PO regimen as outlined. Note MRSA coverage added despite neg MRSA screen since she developed cellulitis while on CTX alone with doxy stopped for 2 days. # Bacteremia 2/2 Strep dysgalactiae # Multifocal PNA on CT at outside hospital # LLE cellulitis # NSTEMI # H/o T2DM - continue vancomycin pharmacy dosed protocol - continue CTX 2g IV daily - await confirmation with [facility] regarding whether susceptibility testing was done for Strep dysgalactiae - for bacteremia: if Strep is sensitive to penicillin, then on discharge, abx can be changed to amoxicillin 1g PO three times daily to complete a 14 day course starting from 03/10, end 03/23 - for cellulitis: if she improves on current regimen over the weekend, then vanc can be changed to doxycycline 100mg PO bid to complete 7-10 day course - please have her repeat BCx 1 week after completing abx (around Mar 30) ID will continue to follow. Please note that there will be no ID notes over the weekend. If questions or concerns arise, please contact the Infectious Disease Call Center and ask to speak with the covering ID physician. Dr. Aj will take over on Tuesday. Ruthy Rodriguez MD [facility], Division of Infectious Diseases Admission and Anticipated Discharge Date Admission Date: March 10, 2024 Subjective Subsequent visit was provided via telemedicine using two-way real-time interactive telecommunication between the patient and the telemedicine provider. For the duration of the visit, the provider was performing the assessment from a different facility than the patient. This includesuse of bluetooth stethoscope forauscultationperformed by the telepresenter that the telemedicine provider can hear if described in the physical exam. [employer] contact information: Please call [facility] Call Center . (Phone Number For Physician Use Only) After establishing a telemedicine visit, patient was: Patient was verified with two unique identifiers, Patient/authorized rep acknowledged consent and understanding and Gave permission to continue telehealth session Time Spent with Patient: Subsequent => 55 min Patient notes having improvement in the pain of left leg. Still red and swollen, unchanged. No other complaints. Physical Exam Physical Exam: General: Awake, alert, no acute distress HEENT: NC/AT, EOMI, mmm Neck: supple, no LAD Lungs: CTA bl, no w/c/r Heart: nl S1/S2 Abdomen: soft, NT/ND Ext: left leg with erythema and swelling, no tenderness today Results & Data Vital Signs (Past 12 Hours) Vital Signs Temp Pulse Pulse Resp BP Pulse Ox O2 Del Method 03/16/24 10:46 36.7 C 88 20 140/81 97 Room Air 03/16/24 08:00 36.6 C 96 H 16 138/75 98 Room Air 03/16/24 07:48 81 03/16/24 03:06 36.8 C 78 14 127/56 L 97 Room Air Laboratory Results Labs reviewed. Diagnostic Findings Imaging reviewed.
[2024-03-17 08:51] LABS: Hematocrit (blood only) 27.1 % (37.0-47.0); Hemoglobin 8.5 g/dl (12.0-16.0); Mean Corpuscular Hemoglobin 25.1 pg (25.0-34.0); Mean Corpuscular Hgb Conc 31.4 g/dL (32.0-36.0); Mean Corpuscular Volume 80.2 fL (80.0-100.0); Mean Platelet Volume 11.3 fL (9.4-12.4); Platelet Count 223 K/uL (130-400); RDW Coefficient of Variation 15.2 % (11.5-14.5); RDW Standard Deviation 44.3 fL (36.4-46.3); Red Blood Count 3.38 M/uL (4.20-5.40); White Blood Count 7.89 K/ul (4.8-10.8)
[2024-03-17 09:10] LABS: BUN Creatinine Ratio 13.7 (10-20); Calcium 8.5 mg/dl (8.6-10.3); Creatinine Clr Calc Pharmacy 77.2 ml/min; Potassium 4.2 mmol/L (3.5-5.1)
--- NOTE | 2024-03-17 11:08 | Hospitalist Progress Note ---
Date of Service March 17, 2024 Assessment & Plan (1) Pneumonia: Plan: -Results report via fax from [facility] shows 2/2 streoptoccus dysgalactiae from 03/10. -ID consulted for antibiotic length recommendations appreciated. -amoxicillin 1gram TID till 03/23 if susceptibility testing sensitive to PCN (2) Cellulitis of left leg: Plan: -started on vancomycin -ID input appreciated -LE Doppler negative for DVT -appears to be improving, will likely need another day of vancomycin (3) Atrial fibrillation with RVR: Plan: -rate controlled -continue eliquis (4) NSTEMI (non-ST elevated myocardial infarction): Plan: -no obstructive coronary disease noted on coronary angiogram -Cardiology has recommended continuing high intensity statin therapy, continue beta-terry and continuing apixaban 5 mg p.o. twice daily (5) Hyperlipidemia: (6) Hypertension: Plan: -BP stable (7) Type 2 diabetes mellitus: Plan: Pharmacy managing glycemic control (8) EDDA (acute kidney injury): Plan: EDDA likely in the setting of sepsis Renal function has improved and is at baseline Plan Pt complaining of Left leg redness and pain. Will get US and start vancomycin for treatment of left leg cellulitis. CODE STATUS: DNR/DNI DVT prophylaxis: Patient on apixaban PT/OT have recommended acute rehab: Patient initially was declining rehab but she is now agreeable and has a bed offer from [facility] Discharge planning to [facility] rehab once left leg cellulitis resolves Care plan discussed with patient, nursing staff Admission and Anticipated Discharge Date Admission Date: March 10, 2024 Subjective No events overnight. Pt states she was feeling better since yesterday, when she sat up in the chair. Left leg appears to be improving. Review of Systems Review of Systems: CONST: Negative for fever, body aches and chills. HENT: Negative for neck pain/stiffness, headache, congestion, sore throat, swelling. EYES: Negative for discharge/pain or vision changes. RESP: Negative for cough/hemoptysis and shortness of breath. CV: Negative chest pain, difficulty breathing, palpitations. ABD: Negative pain, nausea, vomiting. : Negative increase frequency, dysuria, blood in urine or stool. MUSC: Negative for muscle aches, edema. SKIN: Negative rash, lesions/sores. NEURO: Negative headache, dizziness, weakness. Physical Exam Physical Exam: GENERAL APPEARANCE NAD, activity normal for age, well developed/ well nourished, no cyanosis, pallor, or diaphoresis. EYES lids/conjunctiva normal. EARS/NOSE/THROAT Mucous membranes moist, nares normal, lips/teeth normal uvula midline without oral pharyngeal erythema, exudate or swelling TMs normal bilaterally. No lymphangitis/lymphedema. HEAD/NECK normocephalic atraumatic, no facial trauma, neck is supple. RESPIRATORY respiratory effort normal, speaks in full sentences, no tripod position, no accessory muscle use. Lungs clear to auscultation without rhonchi, wheezes, rales CARDIAC Regular rate and rhythm, no edema. ABDOMINAL Soft, ND/NT. No evidence of fluid wave. No pulsatile masses on exam, rebound tenderness, Rodriguez sign or pain over Mcburney's point. MUSCLES/EXTREMITIES No abnormal range of motion, no swelling. SKIN Warm, pink and dry. Left leg with erythema and tenderness. NEUROLOGICAL Speech is clear and appropriate. Normal level of consciousness. Gait and coordination are normal. 5/5 strength in all extremities. PSYCH Normal mood and affect. Judgement/competence is appropriate Results & Data Results & Data Vital Signs (Past 12 Hours) Vital Signs Temp Pulse Pulse Resp BP Pulse Ox O2 Del Method 03/17/24 10:13 74 03/17/24 07:56 36.7 C 73 18 133/73 97 Room Air 03/17/24 03:27 36.8 C 78 17 154/66 H 97 Room Air 03/17/24 00:00 77 PG Care Time/CCT Total # of Minutes Spent Total Time Spent with Patient: Total time spent is greater than 50% in coordination of care (as documented) at patient's floor/unit and/or counseling patient: Coding Level of Care Code 72483 SUB INP/OBS CARE 2/35MIN Diagnoses Pneumonia J18.9 Cellulitis of left leg L03.116 Atrial fibrillation with RVR I48.91 NSTEMI (non-ST elevated myocardial infarction) I21.4 Hyperlipidemia E78.5 Hypertension I10 Type 2 diabetes mellitus E11.9 EDDA (acute kidney injury) N17.9
[2024-03-18 05:54] LABS: Hematocrit (blood only) 26.4 % (37.0-47.0); Hemoglobin 8.3 g/dl (12.0-16.0); Mean Corpuscular Hemoglobin 25.7 pg (25.0-34.0); Mean Corpuscular Hgb Conc 31.4 g/dL (32.0-36.0); Mean Corpuscular Volume 81.7 fL (80.0-100.0); Mean Platelet Volume 11.1 fL (9.4-12.4); Platelet Count 246 K/uL (130-400); RDW Coefficient of Variation 15.2 % (11.5-14.5); RDW Standard Deviation 44.8 fL (36.4-46.3); Red Blood Count 3.23 M/uL (4.20-5.40); White Blood Count 7.02 K/ul (4.8-10.8)
[2024-03-18 06:08] LABS: BUN Creatinine Ratio 16.4 (10-20); Calcium 8.4 mg/dl (8.6-10.3); Creatinine Clr Calc Pharmacy 77.2 ml/min; Potassium 3.9 mmol/L (3.5-5.1)
[2024-03-18] MEDS: VANCOMYCIN LEVEL ONE (06:54)
--- NOTE | 2024-03-18 10:34 | Hospitalist Progress Note ---
Date of Service March 18, 2024 Assessment & Plan (1) Pneumonia: Plan: -Results report via fax from [facility] shows 2/2 blood cultures with streptococcus dysgalactiae from 03/10. -currently has been on rocephin since admission -ID consulted for antibiotic length recommendations appreciated. -Upon discharge amoxicillin 1gram TID till 03/23 (2) Cellulitis of left leg: Plan: -started on vancomycin -ID input appreciated -LE Doppler negative for DVT -appears to be improving, will likely need another day of vancomycin -d/c on doxycycline to complete a 7-10 day course (3) Atrial fibrillation with RVR: Plan: -rate controlled -continue eliquis (4) NSTEMI (non-ST elevated myocardial infarction): Plan: -no obstructive coronary disease noted on coronary angiogram -Cardiology has recommended continuing high intensity statin therapy, continue beta-terry and continuing apixaban 5 mg p.o. twice daily (5) Hyperlipidemia: (6) Hypertension: Plan: -BP stable (7) Type 2 diabetes mellitus: Plan: Pharmacy managing glycemic control (8) EDDA (acute kidney injury): Plan: EDDA likely in the setting of sepsis Renal function has improved and is at baseline Plan CODE STATUS: DNR/DNI DVT prophylaxis: Patient on apixaban PT/OT have recommended acute rehab: Patient initially was declining rehab but she is now agreeable and has a bed offer from [facility] Discharge planning to [facility] rehab once left leg cellulitis resolves complete. Improving over past 3 days. Plan for d/c on 03/19. Care plan discussed with patient, nursing staff Admission and Anticipated Discharge Date Admission Date: March 10, 2024 Subjective No events overnight, pt resting comfortably in bed eating breakfast. Review of Systems Review of Systems: CONST: Negative for fever, body aches and chills. HENT: Negative for neck pain/stiffness, headache, congestion, sore throat, swelling. EYES: Negative for discharge/pain or vision changes. RESP: Negative for cough/hemoptysis and shortness of breath. CV: Negative chest pain, difficulty breathing, palpitations. ABD: Negative pain, nausea, vomiting. : Negative increase frequency, dysuria, blood in urine or stool. MUSC: Negative for muscle aches, edema. SKIN: Negative rash, lesions/sores. NEURO: Negative headache, dizziness, weakness. Physical Exam Physical Exam: GENERAL APPEARANCE NAD, activity normal for age, well developed/ well nourished, no cyanosis, pallor, or diaphoresis. EYES lids/conjunctiva normal. EARS/NOSE/THROAT Mucous membranes moist, nares normal, lips/teeth normal uvula midline without oral pharyngeal erythema, exudate or swelling TMs normal bilaterally. No lymphangitis/lymphedema. HEAD/NECK normocephalic atraumatic, no facial trauma, neck is supple. RESPIRATORY respiratory effort normal, speaks in full sentences, no tripod position, no accessory muscle use. Lungs clear to auscultation without rhonchi, wheezes, rales CARDIAC Regular rate and rhythm, no edema. ABDOMINAL Soft, ND/NT. No evidence of fluid wave. No pulsatile masses on exam, rebound tenderness, Rodriguez sign or pain over Mcburney's point. MUSCLES/EXTREMITIES No abnormal range of motion, no swelling. SKIN Warm, pink and dry. Left leg with erythema and tenderness. NEUROLOGICAL Speech is clear and appropriate. Normal level of consciousness. Gait and coordination are normal. 5/5 strength in all extremities. PSYCH Normal mood and affect. Judgement/competence is appropriate Results & Data Results & Data Vital Signs (Past 12 Hours) Vital Signs Temp Pulse Pulse Resp BP Pulse Ox O2 Del Method 03/18/24 09:16 69 03/18/24 08:00 36.4 C L 82 18 130/69 98 Room Air 03/18/24 03:00 36.6 C 77 16 144/78 H 98 Room Air 03/17/24 22:56 36.6 C 73 18 128/69 98 Room Air 03/17/24 22:50 81 PG Care Time/CCT Total # of Minutes Spent Total Time Spent with Patient: Total time spent is greater than 50% in coordination of care (as documented) at patient's floor/unit and/or counseling patient: Coding Level of Care Code 29136 SUB INP/OBS CARE 2/35MIN Diagnoses Pneumonia J18.9 Cellulitis of left leg L03.116 Atrial fibrillation with RVR I48.91 NSTEMI (non-ST elevated myocardial infarction) I21.4 Hyperlipidemia E78.5 Hypertension I10 Type 2 diabetes mellitus E11.9 EDDA (acute kidney injury) N17.9
--- NOTE | 2024-03-18 11:15 | Pharmacy Report ---
Pharmacy PK ABX Note - Date of Service March 18, 2024 - Assessment and Plan Assessment 03/18 * Current plan for discharge on 03/19 on oral antibiotics, continuing ceftriaxone/vancomycin today. Vancomycin ordered through 03/18 2000 dose. * Random level this morning 19.9 mcg/mL- suggests achievement of target AUC/MARK, SCr has been stable, will continue current dosing with anticipation of change to oral antibiotics 03/15 73 year old F receiving vancomycin for treatment of left leg cellulitis. Pertinent microbiologic data includes: blood cxs from 03/10 NGTD. Patient is also being treated for PNA and currently on ceftriaxone as well. Blood cultures from [facility] showing 2/2 Streptococcus dysgalactiae per attending's progress note. ID has been consulted and following patient. Day 1 for vancomycin. Plan Vancomycin * Loading dose: 2000 mg IV x 1 * Maintenance dose: 1000 mg IV every 12 hours * Random Level: 19.9 mcg/mL * Regimen is predicted to achieve target AUC/MARK of 400-600 mg/L.hr * No further levels ordered in anticipation of de-escalation to oral therapy Pharmacy will continue to follow and will adjust dose/frequency as necessary. Thank you. Pharmacy has transitioned to AUC monitoring for vancomycin. AUC/MARK is the preferred PK/PD target and is associated with decreased risk of nephrotoxicity compared to traditional trough targets.
[2024-03-19 06:07] LABS: Hematocrit (blood only) 26.1 % (37.0-47.0); Hemoglobin 8.2 g/dl (12.0-16.0); Mean Corpuscular Hemoglobin 25.5 pg (25.0-34.0); Mean Corpuscular Hgb Conc 31.4 g/dL (32.0-36.0); Mean Corpuscular Volume 81.1 fL (80.0-100.0); Mean Platelet Volume 10.5 fL (9.4-12.4); Platelet Count 253 K/uL (130-400); RDW Standard Deviation 44.1 fL (36.4-46.3); Red Blood Count 3.22 M/uL (4.20-5.40); White Blood Count 6.48 K/ul (4.8-10.8)
[2024-03-19 06:26] LABS: BUN Creatinine Ratio 11.8 (10-20); Calcium 8.8 mg/dl (8.6-10.3); Creatinine Clr Calc Pharmacy 66.2 ml/min; Potassium 4.3 mmol/L (3.5-5.1)
[2024-03-19 11:06] VITALS: RESP 18
--- NOTE | 2024-03-19 13:53 | Infectious Disease Progress Nt ---
Date of Service March 19, 2024 Assessment & Plan (1) Cellulitis of left leg: (2) Streptococcal bacteremia: (3) Pneumonia: (4) NSTEMI (non-ST elevated myocardial infarction): (5) Type 2 diabetes mellitus: Plan 73yo F with h/o afib, T2DM, closed sacral fracture, PUD with GIB, HTN who initially presented on 03/09 to [facility] ED after sustaining a ground- level fall with c/o weakness and family c/f confusion and inability to care for herself. She was found to be in afib with RVR with hypoxia requiring bipap. Subsequently transferred to [facility] 03/10. Here she was afebrile, was placed on NC. Initial labs with WBC 21.66, Cr 1.50. AST 59, ALT wnl. Troponin elevated (up to 17,000), elevated BNP. PCT 15.10. UA with 0-5 WBC. RPP neg. MRSA screen neg. CXR with congestion bilaterally, no consolidation. TTE technically difficult, moderate MR, mild AR. She had a CTA chest at [facility] that showed diffuse GGO throughout the lungs bl with a slight LLL predominance, no lobar consolidation, c/f multifocal PNA. She had been given zosyn at OSH. She was admitted with Afib with RVR and NSTEMI. Abx changed to CTX and doxycycline. CXR on 03/11 with interval resolution of pulmonary edema, mild left basilar opacity which could reflect atelectasis or a focus of PNA. S/p cardiac cath on 03/12 and noted to have mild nonobstructive CAD. BCx from [facility] returned with Streptococcus dysgalactiae. ID consulted 03/14. WBC is improving with downtrending PCT, afebrile. 03/16-Left leg with improvement in pain, still with similar redness and swelling. Kept on IV abx If she is improving over the weekend, can be changed to PO regimen as outlined. Note MRSA coverage added despite neg MRSA screen since she developed cellulitis while on CTX alone with doxy stopped for 2 days. 03/18- Per d/w hospitalist, cellulitis improving. No susceptibilities done at [facility] for Strep dysgalactiae, so can't assume PCN sensitive. She is stable on Ceftriaxone/vancomycin. # Bacteremia 2/2 Strep dysgalactiae # Multifocal PNA on CT at outside hospital # LLE cellulitis # NSTEMI # H/o T2DM Recommendations: - For cellulitis: improved on vancomycin so can be changed to doxycycline 100mg PO bid to complete 7 day course since starting IV vanco ( 03/15-03/22) - For bacteremia. Doing well on CTX 2g IV daily, so can complete therapy with cefpodoxime 400 mg PO q12hrs for total 14 days ( 03/10- 03/23); No PCN testing done at OSH - Repeat BCx 1 week after completing abx (around Mar 30) D/w hospitalist and ID pharmacist. ID will sign off. Call with questions. Dhara Aj MD, MPH Infectious Disease [facility], ID Division Call [phone] with questions Admission and Anticipated Discharge Date Admission Date: March 10, 2024 Subjective This patient recommendation is based on a telemedicine consult request which was completed asynchronously through chart review and information provided by the primary physician. The patient was not seen or examined today. The evaluation is consultative in nature and all patient care and treatment decisions can either be accepted or rejected by the patient's primary hospital-based treating physician using their own independent medical judgment for their patient. Time Spent Reviewing Chart: 21 - 30 minutes No acute events over the weekend Cellulitis improving per d/w team Results & Data Vital Signs (Past 12 Hours) Vital Signs Temp Pulse Pulse Resp BP Pulse Ox O2 Del Method 03/19/24 11:05 36.7 C 78 18 154/77 H 97 Room Air 03/19/24 07:43 36.5 C 80 16 154/65 H 96 Room Air 03/19/24 07:00 76 03/19/24 03:04 36.5 C 71 18 148/70 H 97 Room Air Laboratory Results Short CBC 03/19/24 Range/Units 05:45 WBC 6.48 (4.8-10.8) K/ul Hgb 8.2 L (12.0-16.0) g/dl Hct 26.1 L (37.0-47.0) % Plt Count 253 (130-400) K/uL BMP 03/19/24 05:45 Sodium 141 Potassium 4.3 Chloride 109 H Carbon Dioxide 27 BUN 10 Creatinine 0.85 Glucose 93 Calcium 8.8 Diagnostic Findings Microbiology 03/10/24 10:38 Blood Aerobic Blood Culture - Final No growth in Aerobic bottle after 5 days. 03/10/24 10:38 Blood Anaerobic Blood Culture - Final No growth in Anaerobic bottle after 5 days. 03/10/24 11:00 Blood Aerobic Blood Culture - Final No growth in Aerobic bottle after 5 days. 03/10/24 11:00 Blood Anaerobic Blood Culture - Final No growth in Anaerobic bottle after 5 days. 03/10/24 Unknown Urine,Indwelling Cath Urine Culture - Final No growth - less than 1,000 colonies/mL. Medications Administered Home Medications Medication Instructions Recorded Confirmed Last Taken apixaban 5 mg tablet (Eliquis) 5 mg PO BID 09/15/19 03/10/24 Unknown atenolol 50 mg tablet (Tenormin) 50 mg PO DAILY 09/15/19 03/10/24 Unknown simvastatin 20 mg tablet (Zocor) 20 mg PO HS 09/15/19 03/10/24 Unknown escitalopram oxalate 10 mg tablet 10 mg PO DAILY 03/10/24 03/10/24 Unknown metformin 500 mg tablet 500 mg PO BID 03/10/24 03/10/24 Unknown omeprazole 40 mg capsule,delayed 40 mg PO DAILYBB 03/10/24 03/10/24 Unknown release valsartan 160 1 tab PO DAILY 03/10/24 03/10/24 Unknown mg-hydrochlorothiazide 25 mg tablet Active Medications Generic Name Dose Route Start Last Admin Trade Name Freq PRN Reason Stop Dose Admin Apixaban 5 mg 03/12/24 21:00 03/19/24 09:29 Apixaban 5 Mg Tablet PO 04/11/24 20:59 5 mg BID JAIDEN Administration Ceftriaxone Sodium 2,000 mg in 50 mls @ 100 mls/hr 03/11/24 09:30 03/19/24 10:02 Rocephin IV 03/23/24 23:59 Infused QAM JAIDEN Infusion Insulin Aspart 0 units 03/10/24 16:30 03/19/24 12:32 Insulin Aspart Per Unit Charge SC 04/09/24 16:29 2 units ACHS JAIDEN Administration Insulin Glargine 5 units 03/12/24 12:30 03/19/24 09:28 Lantus Per Unit Charge SC 04/11/24 12:29 5 units DAILY JAIDEN Administration Magnesium Oxide 400 mg 03/13/24 12:00 03/19/24 12:33 Magnesium Oxide 400 Mg Tab PO 04/12/24 11:59 400 mg BID@1200,1800 JAIDEN Administration Melatonin 3 mg 03/14/24 00:20 03/18/24 21:27 Melatonin 3 Mg Tab PO 04/13/24 00:19 3 mg HS PRN Administration Sleep Metoprolol Succinate 50 mg 03/13/24 09:00 03/19/24 09:30 Metoprolol Succ 50mg Ext Rel Tab PO 04/12/24 08:59 50 mg QAM JAIDEN Administration Oxycodone/Acetaminophen 1 tab 03/16/24 11:16 03/19/24 12:33 Oxycodone/Acetaminophen 5mg/325mg Tab PO 03/30/24 11:15 1 tab Q4H PRN Administration Pain Pantoprazole Sodium 40 mg 03/14/24 09:00 03/19/24 09:30 Pantoprazole 40 Mg Tab PO 04/13/24 08:59 40 mg DAILY JAIDEN Administration Protocol Polyethylene Glycol 17 gm 03/13/24 09:00 03/19/24 09:28 Polyethylene (Miralax) 17 Gm Pack PO 04/12/24 08:59 17 gm DAILY JAIDEN Administration Polysaccharide Iron Complex 150 mg 03/13/24 09:45 03/19/24 09:29 Iron Polysaccharide Complex 150 Mg Capsule PO 04/12/24 09:44 150 mg DAILY JAIDEN Administration Rosuvastatin Calcium 20 mg 03/10/24 09:00 03/19/24 09:29 Rosuvastatin Calcium 20 Mg Tab PO 04/09/24 08:59 20 mg QAM JAIDEN Administration Sennosides 17.2 mg 03/13/24 21:00 03/18/24 21:27 Senna 8.6 Mg Tab PO 04/12/24 20:59 17.2 mg HS JAIDEN Administration Valsartan 80 mg 03/14/24 09:00 03/19/24 09:29 Valsartan 80 Mg Tab PO 04/13/24 08:59 80 mg QAM JAIDEN Administration Vitamin B Complex 1 tab 03/11/24 09:00 03/19/24 09:29 Vitamin B Complex Tab PO 04/10/24 08:59 1 tab QAM JAIDEN Administration
[2024-03-19] MEDS: DOXYCYCLINE HYCLATE 100 MG CAP PO SCH (15:26)
[2024-03-19 15:32] VITALS: PULSE 87; TEMP 97.3; O2SAT 96
[2024-03-19 15:53] VITALS: BP 124/71
--- NOTE | 2024-03-20 10:29 | Discharge Summary ---
Discharge Summary Date of Service March 19, 2024 Principal Dx & Hospital Course #1 = Principal Diagnosis (1) Pneumonia: -Results report via fax from [facility] shows 2/2 blood cultures with streptococcus dysgalactiae from 03/10. -currently has been on rocephin since admission -ID consulted for antibiotic length recommendations appreciated. -Upon discharge amoxicillin 1gram TID till 03/23 (2) Cellulitis of left leg: -started on vancomycin -ID input appreciated -LE Doppler negative for DVT -appears to be improving, will likely need another day of vancomycin -d/c on doxycycline to complete a 7-10 day course (3) Atrial fibrillation with RVR: -rate controlled -continue eliquis (4) NSTEMI (non-ST elevated myocardial infarction): -no obstructive coronary disease noted on coronary angiogram -Cardiology has recommended continuing high intensity statin therapy, continue beta-terry and continuing apixaban 5 mg p.o. twice daily (5) Hyperlipidemia: (6) Hypertension: -BP stable (7) Type 2 diabetes mellitus: Pharmacy managing glycemic control (8) EDDA (acute kidney injury): EDDA likely in the setting of sepsis Renal function has improved and is at baseline Plan CODE STATUS: DNR/DNI DVT prophylaxis: Patient on apixaban PT/OT have recommended acute rehab: Patient initially was declining rehab but she is now agreeable and has a bed offer from [facility] Discharge planning to [facility] rehab once left leg cellulitis resolves complete. Improving over past 3 days. Plan for d/c on 03/19. Care plan discussed with patient, nursing staff Admission HPI Per Admitting Provider The patient is a 73-year-old female with a past medical history including atrial fibrillation, diabetes mellitus, hypertension, closed sacral fracture, anemia, history of acute GI bleeding secondary to peptic ulcer disease. She presented to the emergency department at [facility] initially as noted above, and then was transferred to [facility] ICU for ongoing care. Prior to transfer patient did have troponin of 700, which was reportedly then increased to 5500. She had been taking Eliquis, with the last dose the morning of 03/09, and was then placed on a heparin drip after bolus at [facility] before contact for transfer. Upon arrival to the ICU at [facility], patient was able to be removed from BiPAP, had pulse ox in the low 90s on nasal cannula, and routine admission orders were begun. The Cardizem drip was also stopped, and heart rate remained in the 70s to 80s Discharge Plan Discharge Items Patient Disposition: Transfer Care Home Fac Reason For Visit: A-FIB W RVR,ACUTE RESP FAILURE W HYPOXIA,GROUND Discharge Diagnosis: a fib rvr Activity: Resume your previous activity Non-emergency contact: Primary Care Provider Call non-emergency contact if: you have any medication questions Follow-up/Referrals: Lawrence Wheeler MD [Primary Care Provider] - Diet: Carb Consistent or DM2 and Heart Healthy Diet Texture: Easy to Chew Addtl Attending Provider Instructions: ACTIVITY RECOMMENDATIONS: Excess manipulation of the wrist should be avoided for the next 24-48 hours. * No lifting over 2 pounds (approximately a 1/2 gallon of milk) with the utilized arm for 24 hours. * No strenuous activity such as bowling or tennis for 3 days. * Keep the site of the procedure covered with a bandage for 24 hours. *You may shower the day after the procedure. Do not take a tub bath or submerge the puncture site in water for the next 3 days. *Do not operate any motorized equipment for 3 days. SPECIAL CARE INSTRUCTIONS: The site may be slightly bruised and sore following your procedure. Should any of the following occur, contact the Dr. who performed your procedure. 1. Redness/inflammation, swelling, chills, or fever, or colored drainage at pro cedure site within 3-7 days after your procedure. 2. Coldness, discoloration, ongoing numbness, severe pain, or swelling. Expect mild tingling of hand and tenderness at the puncture site for up to three days. If this persists beyond three days, or other symptoms develop, notify the Dr. who performed your procedure. BLEEDING: If the procedure site on your wrist begins to bleed, do not panic 1. Place 1 or 2 fingers firmly just slightly above the insertion site to stop the bleeding. You may be able to feel your pulse as you hold pressure. 2. Lift your finger after 5 minutes to see if the bleeding has stopped. 3. Once the bleeding has stopped, gently wipe the wrist area clean with a bandage. * If the bleeding from your wrist does not stop after 10 minutes, or if there is a large amount of bleeding or spurting, call 911 (do not drive yourself to the hospital). SKIN IRRITATION: * You may experience some redness and/or swelling in the area where radiation was administered. If any skin irritation occurs, please contact your family physician. FOLLOW UP VISIT: Keep any scheduled doctor appointments. Pending Studies at Discharge: No Stand-Alone Forms: My [facility] Skilled Items Patient informed of condition?: Yes DNR: Yes Discharge Level of Care: Skilled Communicable Disease: Yes Discharge Prognosis: Stable Lines: None Urinary Catheter: No Medications and DC Order Prescriptions: New doxycycline hyclate 100 mg Capsule 100 mg PO BID Qty: 7 0RF rosuvastatin 20 mg Tablet 20 mg PO QAM Qty: 30 0RF cefpodoxime 200 mg tablet 400 mg PO BID 4 Days Qty: 16 0RF Rx Instructions: must administer with a meal/food acetaminophen [Tylenol] 325 mg tablet 650 mg PO QID Qty: 90 0RF Continued atenolol [Tenormin] 50 mg tablet 50 mg PO DAILY Eliquis 5 mg tablet 5 mg PO BID metformin 500 mg tablet 500 mg PO BID valsartan-hydrochlorothiazide 160-25 mg tablet 1 tab PO DAILY escitalopram oxalate 10 mg tablet 10 mg PO DAILY Held omeprazole 40 mg capsule,delayed release(DR/EC) 40 mg PO DAILYBB Hold Instructions: Resume on 03/24/24. resume after completing cefpodoxime. Discontinued simvastatin [Zocor] 20 mg tablet 20 mg PO HS Discharge Orders: Discharge Order (Routine); Ordered 03/19/24 Ordered By: Milton Torres/Other Patient Handouts: Managing Type 2 Diabetes Admission Data Admit Date/Time: 03/10/24 02:54 Attending Provider: Milton Gonzalez Admit Provider: Jose Macedo Primary Care Provider: Lawrence Wheeler Other Providers: Alexys Serrano; Fidel Dixon; Juani Bermudez; Tracy Fleming; Tessa Rivera; Ruthy Rodriguez; Dhara Aj; Kita Espana; Katina Ballard Other Interventions: Discharge Summary Assessment (RN) Last Done: 03/19/24 16:08 Hospital Stay Data Consultations 03/10/24 02:54 Consult Stocking Inspector Routine 03/10/24 05:20 Consult Cardiology Routine 03/14/24 12:20 Consult Infectious Diseases Routine Procedures Performed Operation Date: 03/12/24 11:00 Actual Procedures p Cineradiography w/Routine Exam - Lex Tabor MD p Cath, Left with Cors and Vent - Lex Tabor MD Diagnostic Imagining Performed 03/12/24 06:49 CL Cath Imgs for PACS use only Routine 03/15/24 10:28 US leg [US venous doppler LE LT] Routine Pending Results Patient Have Any Pending Studies at Discharge: No Discharge Instructions Given to Patient (Per Discharging Provider) ACTIVITY RECOMMENDATIONS: Excess manipulation of the wrist should be avoided for the next 24-48 hours. * No lifting over 2 pounds (approximately a 1/2 gallon of milk) with the utilized arm for 24 hours. * No strenuous activity such as bowling or tennis for 3 days. * Keep the site of the procedure covered with a bandage for 24 hours. *You may shower the day after the procedure. Do not take a tub bath or submerge the puncture site in water for the next 3 days. *Do not operate any motorized equipment for 3 days. SPECIAL CARE INSTRUCTIONS: The site may be slightly bruised and sore following your procedure. Should any of the following occur, contact the Dr. who performed your procedure. 1. Redness/inflammation, swelling, chills, or fever, or colored drainage at procedure site within 3-7 days after your procedure. 2. Coldness, discoloration, ongoing numbness, severe pain, or swelling. Expect mild tingling of hand and tenderness at the puncture site for up to three days. If this persists beyond three days, or other symptoms develop, notify the Dr. who performed your procedure. BLEEDING: If the procedure site on your wrist begins to bleed, do not panic 1. Place 1 or 2 fingers firmly just slightly above the insertion site to stop the bleeding. You may be able to feel your pulse as you hold pressure. 2. Lift your finger after 5 minutes to see if the bleeding has stopped. 3. Once the bleeding has stopped, gently wipe the wrist area clean with a bandage. * If the bleeding from your wrist does not stop after 10 minutes, or if there is a large amount of bleeding or spurting, call 911 (do not drive yourself to the hospital). SKIN IRRITATION: * You may experience some redness and/or swelling in the area where radiation was administered. If any skin irritation occurs, please contact your family physician. FOLLOW UP VISIT: Keep any scheduled doctor appointments. Coding Diagnoses Pneumonia J18.9 Cellulitis of left leg L03.116 Atrial fibrillation with RVR I48.91 NSTEMI (non-ST elevated myocardial infarction) I21.4 Hyperlipidemia E78.5 Hypertension I10 Type 2 diabetes mellitus E11.9 EDDA (acute kidney injury) N17.9
== END 2024-03-19 16:10 | DRG 871 ==
LOC: SUATTDRO 02:54 → 1E 03:37 → SUATTDRO 03:37 → 4W 07:17